=== PATIENT | male | born 1945 | race Caucasian/White ===

== ENCOUNTER 2017-04-23 10:47 | Inpatient (IN) | payer MEDICARE, OTHER ==
[2017-04-23] MEDS ORDERED: Sodium Chloride 0.9% 1,000 ML IV ONE ×2 (11:06)
[2017-04-23] MEDS ORDERED: Pantoprazole 80 MG in Sodium Chloride 0.9% 100 ML IV STA (11:06)
--- NOTE | 2017-04-23 11:09 | C.PDOC ---
History Of Present Illness 71 year old male presents to the ED via EMS for evaluation of rectal bleeding which began today. History obtained via patient's neighbor due to patient's clinical condition and poor historian. As per neighbor, patient had an episode of rectal bleeding this morning for an unknown duration. Neighbor states patient was found indoors with other family member and bright red blood was found on toilet. Patient is uncooperative during examination and states this is his first time experiencing rectal bleeding. Neighbor denies history of alcohol abuse; unknown if patient is experiencing abdominal pain or hematemesis. Neighbor states patient is currently at baseline mental status, stating " he doesn't talk very much." Time Seen by Provider: 04/23/17 10:55 Chief Complaint (Nursing): GI Problem History Per: EMS, Other (neighbor ) History/Exam Limitations: clinical condition, other (poor historian ) Onset/Duration Of Symptoms: Hrs Current Symptoms Are (Timing): Still Present Number Of Bleeding Episodes: Unknown Associated Symptoms: Rectal Bleeding Past Medical History Reviewed: Historical Data, Nursing Documentation, Vital Signs Vital Signs: Last Vital Signs Temp 97.6 F 04/23/17 14:37 Pulse 100 H 04/23/17 15:27 Resp 12 04/23/17 15:27 BP 82/51 L 04/23/17 15:27 Pulse Ox 100 04/23/17 15:27 - Medical History PMH: No Chronic Diseases Surgical History: No Surg Hx Family History: States: Unknown Family Hx - Social History Hx Tobacco Use: Yes Hx Alcohol Use: Yes Hx Substance Use: No - Immunization History Hx Tetanus Toxoid Vaccination: No Hx Influenza Vaccination: No Hx Pneumococcal Vaccination: No Review Of Systems Review Of Systems: ROS cannot be obtained secondary to pt's inabilty to answer questions. Physical Exam - Physical Exam Appears: Non-toxic, No Acute Distress, Unkempt, Other (cachectic) Skin: Warm, Dry, Pale Head: Atraumatic, Normacephalic Eye(s): bilateral: Normal Inspection Oral Mucosa: Moist Neck: Supple Chest: Symmetrical, No Deformity, No Tenderness Cardiovascular: Rhythm Regular, No Murmur Respiratory: Normal Breath Sounds, No Rales, No Rhonchi, No Wheezing Gastrointestinal/Abdominal: Soft, No Tenderness, No Guarding, No Rebound Rectal: Other (gross bright red blood noted. no active rectal bleed ) Extremity: Normal ROM, Capillary Refill (less than 2 seconds) Neurological/Psych: Oriented x3, Normal Speech, Normal Cognition, Other (no focal deficits ) Other Neurological Findings: Other (generalized tremors ) ED Course And Treatment - Laboratory Results Result Diagrams: 04/23/17 11:30 04/23/17 11:30 ECG: Interpreted By Me, Viewed By Me ECG Rhythm: Sinus Tachycardia Rate From EC O2 Sat by Pulse Oximetry: 100 (on RA) Pulse Ox Interpretation: Normal Progress Note: Bloodwork, urinalysis, CT A/P, CXR, EKG ordered and reviewed. Ativan IVP, Protonix IVP, Pepcid IVP, Zofran IVP, and IV Fluids administered. Progress - Re-Evaluation Re-evaluation Note: 04/23/17 12:18 NOTIFIED BY RN PT NOW W HYPOTENSION. IVF IN PROGRESS. PT W INCR ALERTNESS AND MORE INTERACTIVE COMPARED TO INITIAL. NO PALP RADIAL PULSE. NO RECUR GI BLEED. NARD. NEURO INTACT IMPROVED FROM INITIAL, MORE INTERACTIVE AND TALKATIVE. UNABLE TO GIVE FURTHER HX D/W BROTHER ADEL SIDAROUS [phone] PT IS FULL CODE. VERBAL CONSENT ON PHONE FOR BLOOD TRANSFUSION. DENIES PT W ACTIVE ETOH USE. 3 DAYS NEW ONSET LGIB. UNK IF UGIB. "HE'S JUST BEEN SLEEPING ALOT." 04/23/17 12:52 CODE SEPSIS ACTIVATED 04/23/17 13:08 EXAM UNCH FROM INITIAL. D/W DR CAGLE C/F ICU AWARE OF ER FINDINGS WILL EVAL 04/23/17 13:10 BP IMPROVED S/P IVF 2L. PRBC IN PROGRESS. PT UNSTABLE FOR CT, WILL TRANSFUSE FIRST BEFORE SENDING TO CT. D/W DR FLEMING MED [employer] AWARE OF ER FINDINGS. CONSULT GI AND SURG [employer]. 04/23/17 13:22 D/W DR LEHMAN AWARE OF ER FINDINGS, WILL CONSULT 04/23/17 16:03 PT AWAKE APPEARS COMFORTABLE NO RECUR LGIB. SBP 98 D/W DR CAGLE PT CLEARED FOR TELE - Data Reviewed Data Reviewed: Lab, Diagnostic imaging, EKG - Critical Care Citical Care: Excluding Proc Time Critical Care Time: 120 minutes Medical Decision Making Medical Decision Making: Prior records reviewed. Patient was previously evaluated for alcohol intoxication. Plan is to treat for GI bleed, hypothermia, alcohol intoxication. Rectal temperature of 95 recorded. Disposition Counseled Patient/Family Regarding: Studies Performed, Diagnosis, Need For Followup - Disposition Disposition: HOSPITALIZED Disposition Time: 16:04 Condition: STABLE Forms: [facility] (Mexican) - POA Present On Arrival: None - Clinical Impression Clinical Impression: Gastrointestinal hemorrhage, Hypotension, Severe anemia - Scribe Statement The provider has reviewed the documentation as recorded by the Scribe (Serena Solitario) Provider Attestation: All medical record entries made by the Scribe were at my direction and personally dictated by me. I have reviewed the chart and agree that the record accurately reflects my personal performance of the history, physical exam, medical decision making, and the department course for this patient. I have also personally directed, reviewed, and agree with the discharge instructions and disposition. Decision To Admit - Pt Status Changed To: Hospital Disposition Of: Inpatient - Admit Certification Admit to Inpatient:: After my assessment, the patient will require hospitalization for at least two midnights. This is because of the severity of symptoms shown, intensity of services needed, and/or the medical risk in this patient being treated as an outpatient. - InPatient: Physician Admission Certification: I certify that this patient requires 2 or more midnights of care for the following reason:: SEE NOTE - . Bed Request Type: Telemetry Admitting Physician: Ana Song Patient Diagnosis: Gastrointestinal hemorrhage, Hypotension, Severe anemia
[2017-04-23 11:36] LABS: BASO # 0.2 K/uL (0.0-0.2); BASO % 0.8 % (0.0-2.0); EOS % 0.1 % (0.0-4.0); HEMOGLOBIN 6.7 g/dL (12.0-18.0); LYMPH # 2.3 K/uL (1.0-4.3); LYMPH % 11.3 % (20.0-40.0); MEAN CELL VOLUME 90.9 fL (80.0-94.0); MEAN CORPUSCULAR HEMOGLOBIN 29.8 pg (27.0-31.0); MEAN CORPUSCULAR HGB CONC 32.8 g/dL (33.0-37.0); MEAN PLATELET VOLUME 7.6 fL (7.2-11.7); MONO # 0.7 K/uL (0.0-0.8); MONO % 3.6 % (0.0-10.0); NEUT # 17.2 K/uL (1.8-7.0); NEUT % 84.2 % (50.0-75.0); RBC 2.23 Mil/uL (4.40-5.90); RED CELL DISTRIBUTION WIDTH 13.3 % (11.5-14.5); WHITE BLOOD COUNT 20.5 K/uL (4.8-10.8)
[2017-04-23 11:45] LABS: INR 1.2; PROTHROMBIN TIME 13.8 SECONDS (9.7-12.2)
[2017-04-23 12:02] LABS: ALB/GLOB RATIO 1.1 (1.0-2.1); ALBUMIN 3.3 g/dL (3.5-5.0); ALT/SGPT 25 U/L (21-72); AST/SGOT 38 U/L (17-59); BLOOD UREA NITROGEN 52 mg/dL (9-20); CALCIUM 7.7 mg/dl (8.6-10.4); GFR AFRICAN-AMERICAN > 60; GFR NON-AFRICAN AMERICAN > 60; LIPASE 104 U/L (23-300)
--- NOTE | 2017-04-23 12:04 | RAD ---
Chest x-ray single frontal view History GI bleeding. Comparison: None available. Findings: No focal infiltrate or effusion. Biapical pleural thickening with upper lobe scattered nodularity/granulomatous changes. Tortuous ectatic aorta. Degenerative changes in the spine and shoulders. Impression: No focal infiltrate or effusion. Biapical pleural thickening with upper lobe scattered nodularity/granulomatous changes.
[2017-04-23 12:43] LABS: VENOUS BLOOD GAS BASE EXCESS -10.1 mmol/L (0.0-2.0); VENOUS BLOOD GAS PCO2 42 mmHg (40-60); VENOUS BLOOD GAS PO2 20 mm/Hg (30-55); VENOUS BLOOD PH 7.22 (7.32-7.43)
[2017-04-23] MEDS ORDERED: Vancomycin 1 gm/NS 200 ml 1 GM/200 ML BAG IVPB STA (12:52)
[2017-04-23] MEDS ORDERED: Piperacill/Tazo 3.375gm in Dex 3.375 GM/50 ML BAG IVPB STA (12:52)
[2017-04-23] MEDS ORDERED: Iodixanol 320 mg/ml 150 ml Bottle IV ONE (13:11)
--- NOTE | 2017-04-23 14:24 | CP.PCM.CON ---
<TreyOsmanVera - Last Filed: 04/23/17 16:41> History of Present Illness - History of Present Illness History of Present Illness: HPI: Patient is a 71 y/o male with PMH of schizophrenia who presents to the ED via EMS for rectal bleeding that started 2-3 days ago. I spoke with the brother who lives with the patient on the phone and most of the history was obtained from him because the patient is a poor historian and gives innapropriate responses to some of my questions. However, the brother seems to know very little about the patients medical history. He says he decided to call an ambulance today because the bleeding was not improving. He first called a neighbor who came over and is present in the ED with the patient. She says when she got to the patient's house there was a lot of bright red blood in the toilet but did not notice any dripping down from him when he got off the toilet. They are both unsure whether the patient has recently had diarrhea, constipation, nausea, vomiting, or prior episodes of rectal bleeding but they did say he was not complaining of anything specific anytime in the recent past. They are also unsure of colonoscopy history. PMH: schizophrenia Meds: see MR Allergies: NKDA PSH: unknown surgery of leg per brother SH: Smokes 1 PPD, denies alcohol and elicit drug use Review of Systems - Review of Systems Systems not reviewed;Unavailable: Other (disorganized 2/2 schizophrenia ) Past Patient History - Past Social History Smoking Status: Former Smoker - PSYCHIATRIC Hx Substance Use: No - ANESTHESIA Hx Anesthesia: No Meds Allergies/Adverse Reactions: Allergies Allergy/AdvReac Type Severity Reaction Status Date / Time No Known Allergies Allergy Unverified 04/23/17 11:07 - Medications Medications: Current Medications Sodium Chloride (Sodium Chloride 0.9%) 1,000 mls @ 100 mls/hr IV .Q10H ONE Stop: 04/23/17 21:05 Last Admin: 04/23/17 11:20 Dose: 100 mls/hr Vancomycin/Sodium Chloride (Vancomycin 1 Gm/Ns 200 Ml) 1 gm in 200 mls @ 133 mls/hr IVPB STAT STA Stop: 04/23/17 14:22 Physical Exam - Constitutional Appears: Non-toxic, No Acute Distress - Head Exam Head Exam: ATRAUMATIC, NORMAL INSPECTION, NORMOCEPHALIC - Eye Exam Eye Exam: EOMI, Normal appearance Pupil Exam: PERRL - ENT Exam ENT Exam: Mucous Membranes Dry - Respiratory Exam Respiratory Exam: Clear to Auscultation Bilateral, NORMAL BREATHING PATTERN. absent: Rales, Rhonchi, Wheezes - Cardiovascular Exam Cardiovascular Exam: Tachycardia, REGULAR RHYTHM, +S1, +S2 - GI/Abdominal Exam GI & Abdominal Exam: Distended, Hyperactive Bowel Sounds, Soft. absent: Guarding, Hernia, Mass, Rigid, Tenderness - Rectal Exam Rectal Exam: absent: Hemorrhoids, Fecal Impaction Additional comments: Dried blood around the rectum Senitnal pile noted - Extremities Exam Extremities exam: Positive for: normal capillary refill, normal inspection, pedal pulses present. Negative for: calf tenderness, pedal edema - Neurological Exam Neurological exam: Alert - Psychiatric Exam Additional comments: disorganized and preoccupied - Skin Skin Exam: Dry, Intact, Normal Color, Warm Results - Vital Signs Recent Vital Signs: Last Vital Signs Temp 97.8 F 04/23/17 13:44 Pulse 102 H 04/23/17 13:44 Resp 18 04/23/17 13:44 BP 99/42 L 04/23/17 13:44 Pulse Ox 100 04/23/17 13:44 - Labs Result Diagrams: 04/23/17 11:30 04/23/17 11:30 Labs: Laboratory Results - last 24 hr 04/23/17 04/23/17 04/23/17 11:30 11:30 11:30 WBC 20.5 H RBC 2.23 L Hgb 6.7 L Hct 20.3 L MCV 90.9 MCH 29.8 MCHC 32.8 L RDW 13.3 Plt Count 342 MPV 7.6 Neut % (Auto) 84.2 H Lymph % (Auto) 11.3 L [place] % (Auto) 3.6 Eos % (Auto) 0.1 Baso % (Auto) 0.8 Neut # 17.2 H Lymph # 2.3 [place] # 0.7 Eos # 0.0 Baso # 0.2 PT 13.8 H INR 1.2 APTT 23 pO2 VBG pH VBG pCO2 VBG HCO3 VBG Total CO2 VBG O2 Sat (Calc) VBG Base Excess VBG Potassium Glucose Lactate Sodium 131 L Potassium 4.9 Chloride 104 Carbon Dioxide 16 L Anion Gap 17 BUN 52 H Creatinine 0.8 Est GFR ( Amer) > 60 Est GFR (Non-Af Amer) > 60 Random Glucose 170 H Calcium 7.7 L Total Bilirubin 0.4 AST 38 ALT 25 Alkaline Phosphatase 45 Total Protein 6.3 Albumin 3.3 L Globulin 3.0 Albumin/Globulin Ratio 1.1 Lipase 104 Venous Blood Potassium Stool Occult Blood Alcohol, Quantitative Blood Type Blood Type Confirm Antibody Screen 04/23/17 04/23/17 04/23/17 11:30 11:30 11:33 WBC RBC Hgb Hct MCV MCH MCHC RDW Plt Count MPV Neut % (Auto) Lymph % (Auto) [place] % (Auto) Eos % (Auto) Baso % (Auto) Neut # Lymph # [place] # Eos # Baso # PT INR APTT pO2 VBG pH VBG pCO2 VBG HCO3 VBG Total CO2 VBG O2 Sat (Calc) VBG Base Excess VBG Potassium Glucose Lactate Sodium Potassium Chloride Carbon Dioxide Anion Gap BUN Creatinine Est GFR ( Amer) Est GFR (Non-Af Amer) Random Glucose Calcium Total Bilirubin AST ALT Alkaline Phosphatase Total Protein Albumin Globulin Albumin/Globulin Ratio Lipase Venous Blood Potassium Stool Occult Blood Positive H Alcohol, Quantitative < 10 Blood Type A POSITIVE Blood Type Confirm A POSITIVE Antibody Screen Negative 04/23/17 12:39 WBC RBC Hgb Hct MCV MCH MCHC RDW Plt Count MPV Neut % (Auto) Lymph % (Auto) [place] % (Auto) Eos % (Auto) Baso % (Auto) Neut # Lymph # [place] # Eos # Baso # PT INR APTT pO2 20 L VBG pH 7.22 L VBG pCO2 42 VBG HCO3 15.0 VBG Total CO2 18.5 L VBG O2 Sat (Calc) 36.4 L VBG Base Excess -10.1 L VBG Potassium 3.7 Glucose 111 H Lactate 3.7 H Sodium 142.0 Potassium Chloride 116.0 H Carbon Dioxide Anion Gap BUN Creatinine Est GFR ( Amer) Est GFR (Non-Af Amer) Random Glucose Calcium Total Bilirubin AST ALT Alkaline Phosphatase Total Protein Albumin Globulin Albumin/Globulin Ratio Lipase Venous Blood Potassium 3.7 Stool Occult Blood Alcohol, Quantitative Blood Type Blood Type Confirm Antibody Screen Assessment & Plan - Assessment and Plan (Free Text) Assessment: 71M with acute GI bleed Neuro * neurologically in tact * alert and oriented Psych - history of schizophrenia * continue home meds Cardio - tachycardia and hypotension possibly 2/2 hypovolemia GI - acute GI bleed * AST/ALT: 38/25 * TBili: 0.4 * Unsure if ever had a colonoscopy * Dr. Mercado consulted - recs appreciated Heme/Onc - anemia likely 2/2 acute GI bleed * H&H: 6.7/20.3 * Plts: 342 * PT/PTT/INR: 13.8/23/1.2 * Transfused 2U pRBCs * f/u H&H Patient seen and evaluated with Dr. Dooley. ICU admission is unnecessary at this time. Please re-consult as needed. <Christophe Urias - Last Filed: 04/23/17 23:14> Results - Vital Signs Recent Vital Signs: Last Vital Signs Temp 97.7 F 04/23/17 21:39 Pulse 79 04/23/17 21:39 Resp 18 04/23/17 21:39 BP 91/59 L 04/23/17 21:39 Pulse Ox 99 04/23/17 21:39 - Labs Result Diagrams: 04/23/17 18:48 04/23/17 11:30 Labs: Laboratory Results - last 24 hr 04/23/17 04/23/17 04/23/17 11:30 11:30 11:30 WBC 20.5 H RBC 2.23 L Hgb 6.7 L Hct 20.3 L MCV 90.9 MCH 29.8 MCHC 32.8 L RDW 13.3 Plt Count 342 MPV 7.6 Neut % (Auto) 84.2 H Lymph % (Auto) 11.3 L [place] % (Auto) 3.6 Eos % (Auto) 0.1 Baso % (Auto) 0.8 Neut # 17.2 H Lymph # 2.3 [place] # 0.7 Eos # 0.0 Baso # 0.2 Retic Count PT 13.8 H INR 1.2 APTT 23 pO2 VBG pH VBG pCO2 VBG HCO3 VBG Total CO2 VBG O2 Sat (Calc) VBG Base Excess VBG Potassium Glucose Lactate Sodium 131 L Potassium 4.9 Chloride 104 Carbon Dioxide 16 L Anion Gap 17 BUN 52 H Creatinine 0.8 Est GFR ( Amer) > 60 Est GFR (Non-Af Amer) > 60 Random Glucose 170 H Hemoglobin A1c Lactic Acid Calcium 7.7 L % Saturation Ferritin Total Bilirubin 0.4 AST 38 ALT 25 Alkaline Phosphatase 45 Total Protein 6.3 Albumin 3.3 L Globulin 3.0 Albumin/Globulin Ratio 1.1 Lipase 104 Folate Procalcitonin Venous Blood Potassium Urine Color Urine Clarity Urine pH Ur Specific Levan Urine Protein Urine Glucose (UA) Urine Ketones Urine Blood Urine Nitrate Urine Bilirubin Urine Urobilinogen Ur Leukocyte Esterase Urine WBC (Auto) Urine RBC (Auto) Ur Squamous Epith Cells Urine Bacteria Stool Occult Blood Urine Opiates Screen Urine Methadone Screen Ur Barbiturates Screen Ur Phencyclidine Scrn Ur Amphetamines Screen U Benzodiazepines Scrn U Oth Cocaine Metabols U Cannabinoids Screen Alcohol, Quantitative Blood Type Blood Type Confirm Antibody Screen 04/23/17 04/23/17 04/23/17 11:30 11:30 11:33 WBC RBC Hgb Hct MCV MCH MCHC RDW Plt Count MPV Neut % (Auto) Lymph % (Auto) [place] % (Auto) Eos % (Auto) Baso % (Auto) Neut # Lymph # [place] # Eos # Baso # Retic Count PT INR APTT pO2 VBG pH VBG pCO2 VBG HCO3 VBG Total CO2 VBG O2 Sat (Calc) VBG Base Excess VBG Potassium Glucose Lactate Sodium Potassium Chloride Carbon Dioxide Anion Gap BUN Creatinine Est GFR ( Amer) Est GFR (Non-Af Amer) Random Glucose Hemoglobin A1c Lactic Acid Calcium % Saturation Ferritin Total Bilirubin AST ALT Alkaline Phosphatase Total Protein Albumin Globulin Albumin/Globulin Ratio Lipase Folate Procalcitonin Venous Blood Potassium Urine Color Urine Clarity Urine pH Ur Specific [place]an Urine Protein Urine Glucose (UA) Urine Ketones Urine Blood Urine Nitrate Urine Bilirubin Urine Urobilinogen Ur Leukocyte Esterase Urine WBC (Auto) Urine RBC (Auto) Ur Squamous Epith Cells Urine Bacteria Stool Occult Blood Positive H Urine Opiates Screen Urine Methadone Screen Ur Barbiturates Screen Ur Phencyclidine Scrn Ur Amphetamines Screen U Benzodiazepines Scrn U Oth Cocaine Metabols U Cannabinoids Screen Alcohol, Quantitative < 10 Blood Type A POSITIVE Blood Type Confirm A POSITIVE Antibody Screen Negative 04/23/17 04/23/17 04/23/17 12:39 16:49 16:49 WBC RBC Hgb Hct MCV MCH MCHC RDW Plt Count MPV Neut % (Auto) Lymph % (Auto) [place] % (Auto) Eos % (Auto) Baso % (Auto) Neut # Lymph # [place] # Eos # Baso # Retic Count PT INR APTT pO2 20 L VBG pH 7.22 L VBG pCO2 42 VBG HCO3 15.0 VBG Total CO2 18.5 L VBG O2 Sat (Calc) 36.4 L VBG Base Excess -10.1 L VBG Potassium 3.7 Glucose 111 H Lactate 3.7 H Sodium 142.0 Potassium Chloride 116.0 H Carbon Dioxide Anion Gap BUN Creatinine Est GFR ( Amer) Est GFR (Non-Af Amer) Random Glucose Hemoglobin A1c Lactic Acid Calcium % Saturation Ferritin Total Bilirubin AST ALT Alkaline Phosphatase Total Protein Albumin Globulin Albumin/Globulin Ratio Lipase Folate Procalcitonin Venous Blood Potassium 3.7 Urine Color Straw Urine Clarity Clear Urine pH 5.0 Ur Specific [place]an 1.015 Urine Protein Negative Urine Glucose (UA) Normal Urine Ketones Negative Urine Blood 1+ H Urine Nitrate Negative Urine Bilirubin Negative Urine Urobilinogen Normal Ur Leukocyte Esterase Neg Urine WBC (Auto) 1 Urine RBC (Auto) 6 H Ur Squamous Epith Cells < 1 Urine Bacteria Rare Stool Occult Blood Urine Opiates Screen Negative Urine Methadone Screen Negative Ur Barbiturates Screen Negative Ur Phencyclidine Scrn Negative Ur Amphetamines Screen Negative U Benzodiazepines Scrn Negative U Oth Cocaine Metabols Negative U Cannabinoids Screen Negative Alcohol, Quantitative Blood Type Blood Type Confirm Antibody Screen 04/23/17 04/23/17 04/23/17 16:50 18:48 18:48 WBC 11.1 H RBC 2.15 L Hgb 6.3 L* Hct 19.1 L MCV 88.8 D MCH 29.4 MCHC 33.1 RDW 13.6 Plt Count 214 D MPV 7.2 Neut % (Auto) Lymph % (Auto) 27.3 [place] % (Auto) 5.8 Eos % (Auto) 0.3 Baso % (Auto) 0.6 Neut # Lymph # 3.0 [place] # 0.6 Eos # 0.0 Baso # 0.1 Retic Count 2.2 H PT INR APTT pO2 58 H VBG pH 7.38 VBG pCO2 33 L VBG HCO3 21.0 VBG Total CO2 20.5 L VBG O2 Sat (Calc) 96.9 H VBG Base Excess -4.7 L VBG Potassium 4.0 Glucose 108 Lactate 1.7 Sodium 140.0 Potassium Chloride 115.0 H Carbon Dioxide Anion Gap BUN Creatinine Est GFR ( Amer) Est GFR (Non-Af Amer) Random Glucose Hemoglobin A1c Lactic Acid Calcium % Saturation Ferritin 107.0 Total Bilirubin AST ALT Alkaline Phosphatase Total Protein Albumin Globulin Albumin/Globulin Ratio Lipase Folate 15.0 Procalcitonin Venous Blood Potassium 4.0 Urine Color Urine Clarity Urine pH Ur Specific [place]an Urine Protein Urine Glucose (UA) Urine Ketones Urine Blood Urine Nitrate Urine Bilirubin Urine Urobilinogen Ur Leukocyte Esterase Urine WBC (Auto) Urine RBC (Auto) Ur Squamous Epith Cells Urine Bacteria Stool Occult Blood Urine Opiates Screen Urine Methadone Screen Ur Barbiturates Screen Ur Phencyclidine Scrn Ur Amphetamines Screen U Benzodiazepines Scrn U Oth Cocaine Metabols U Cannabinoids Screen Alcohol, Quantitative Blood Type Blood Type Confirm Antibody Screen 04/23/17 04/23/17 04/23/17 18:48 18:48 18:48 WBC RBC Hgb Hct MCV MCH MCHC RDW Plt Count MPV Neut % (Auto) Lymph % (Auto) [place] % (Auto) Eos % (Auto) Baso % (Auto) Neut # Lymph # [place] # Eos # Baso # Retic Count PT INR APTT pO2 VBG pH VBG pCO2 VBG HCO3 VBG Total CO2 VBG O2 Sat (Calc) VBG Base Excess VBG Potassium Glucose Lactate Sodium Potassium Chloride Carbon Dioxide Anion Gap BUN Creatinine Est GFR ( Amer) Est GFR (Non-Af Amer) Random Glucose Hemoglobin A1c 5.7 Lactic Acid Calcium % Saturation 54 Ferritin Total Bilirubin AST ALT Alkaline Phosphatase Total Protein Albumin Globulin Albumin/Globulin Ratio Lipase Folate Procalcitonin 0.06 L Venous Blood Potassium Urine Color Urine Clarity Urine pH Ur Specific [place] Urine Protein Urine Glucose (UA) Urine Ketones Urine Blood Urine Nitrate Urine Bilirubin Urine Urobilinogen Ur Leukocyte Esterase Urine WBC (Auto) Urine RBC (Auto) Ur Squamous Epith Cells Urine Bacteria Stool Occult Blood Urine Opiates Screen Urine Methadone Screen Ur Barbiturates Screen Ur Phencyclidine Scrn Ur Amphetamines Screen U Benzodiazepines Scrn U Oth Cocaine Metabols U Cannabinoids Screen Alcohol, Quantitative Blood Type Blood Type Confirm Antibody Screen 04/23/17 18:48 WBC RBC Hgb Hct MCV MCH MCHC RDW Plt Count MPV Neut % (Auto) Lymph % (Auto) [place] % (Auto) Eos % (Auto) Baso % (Auto) Neut # Lymph # [place] # Eos # Baso # Retic Count PT INR APTT pO2 VBG pH VBG pCO2 VBG HCO3 VBG Total CO2 VBG O2 Sat (Calc) VBG Base Excess VBG Potassium Glucose Lactate Sodium Potassium Chloride Carbon Dioxide Anion Gap BUN Creatinine Est GFR ( Amer) Est GFR (Non-Af Amer) Random Glucose Hemoglobin A1c Lactic Acid 1.3 Calcium % Saturation Ferritin Total Bilirubin AST ALT Alkaline Phosphatase Total Protein Albumin Globulin Albumin/Globulin Ratio Lipase Folate Procalcitonin Venous Blood Potassium Urine Color Urine Clarity Urine pH Ur Specific [place] Urine Protein Urine Glucose (UA) Urine Ketones Urine Blood Urine Nitrate Urine Bilirubin Urine Urobilinogen Ur Leukocyte Esterase Urine WBC (Auto) Urine RBC (Auto) Ur Squamous Epith Cells Urine Bacteria Stool Occult Blood Urine Opiates Screen Urine Methadone Screen Ur Barbiturates Screen Ur Phencyclidine Scrn Ur Amphetamines Screen U Benzodiazepines Scrn U Oth Cocaine Metabols U Cannabinoids Screen Alcohol, Quantitative Blood Type Blood Type Confirm Antibody Screen Attending/Attestation - Attestation I have personally seen and examined this patient.: Yes I have fully participated in the care of the patient.: Yes I have reviewed all pertinent clinical information: Yes Notes (Text): 04/23/17 23:[address] Dooley earlier today. I was reconsulted to see the patient. He is alert and oriented, answers only some question appropriately, this is his baseline. Patient is cachectic with severe protein calorie malnutrition with horrible dentition. He does not properly care for himself, possible from poorly controlled schizophrenia. His baseline blood pressure, is SBP ~100's. He is not far off from that. He does have an active slow upper GI bleed with melanotic stool, but is not hemodynamically compromised from this. He will need a non-urgent EGD, GI consulted. continue protonix gtt, fluids and 3 units PRBC transfusion. Patient is currently stable for continue management on Telemetry floors. If his clinical status changes, please reconsult ICU.
[2017-04-23] MEDS ORDERED: Thiamine 100 mg/ml Inj IV ONE (15:50)
--- NOTE | 2017-04-23 15:54 | CP.PCM.PN ---
Subjective - Date & Time of Evaluation Date of Evaluation: 04/23/17 Time of Evaluation: 15:25 - Subjective Subjective: H&P [facility] #[id number] Objective - Vital Signs/Intake and Output Vital Signs (last 24 hours): Temp Pulse Resp BP Pulse Ox 97.6 F 100 H 12 82/51 L 100 04/23/17 14:37 04/23/17 15:27 04/23/17 15:27 04/23/17 15:27 04/23/17 15:27 - Medications Medications: Current Medications Sodium Chloride (Sodium Chloride 0.9%) 1,000 mls @ 100 mls/hr IV .Q10H ONE Stop: 04/23/17 21:05 Last Admin: 04/23/17 11:20 Dose: 100 mls/hr - Labs Labs: 04/23/17 11:30 04/23/17 11:30 PT 13.8 SECONDS (9.7-12.2) H 04/23/17 11:30 INR 1.2 04/23/17 11:30 APTT 23 SECONDS (21-34) 04/23/17 11:30
[2017-04-23 16:54] LABS: SQUAMOUS EPITHIAL < 1 /hpf (0-5); URINE BACTERIA RARE (<OCC); URINE BILIRUBIN NEGATIVE (NEGATIVE); URINE BLOOD 1+ (NEGATIVE); URINE CLARITY Clear (Clear); URINE COLOR Straw (YELLOW); URINE GLUCOSE (UA) NORMAL (Normal); URINE LEUKOCYTE ESTERASE NEG Leu/uL (Negative); URINE NITRATE NEGATIVE (NEGATIVE); URINE PROTEIN NEGATIVE (NEGATIVE); URINE UROBILINOGEN NORMAL mg/dL (0.2-1.0)
[2017-04-23 17:04] LABS: VENOUS BLOOD GAS BASE EXCESS -4.7 mmol/L (0.0-2.0); VENOUS BLOOD GAS PCO2 33 mmHg (40-60); VENOUS BLOOD GAS PO2 58 mm/Hg (30-55); VENOUS BLOOD PH 7.38 (7.32-7.43)
[2017-04-23 17:21] LABS: BARBITURATES, UR NEGATIVE (NEGATIVE); BENZODIAZEPINES, UR NEGATIVE (NEGATIVE); OPIATES, UR NEGATIVE (NEGATIVE); PHENCYCLIDINE, UR NEGATIVE (NEGATIVE)
--- NOTE | 2017-04-23 18:05 | CP.PCM.CON ---
History of Present Illness - History of Present Illness History of Present Illness: This is a 71 year old man admitted with rectal bleeding. Patient is a poor historian, and history is obtained from the chart. Patient states that the bleeding started two or three days prior to admission. A neighbor noted bright red blood in the toilet. It is unclear if there was any recent change in the bowel movements, such as diarrhea or constipation. It is also not clear if he had any nausea or vomiting. At present, he denies having any abdominal pain, nausea or vomiting. Review of Systems - Review of Systems Systems not reviewed;Unavailable: Psychotic, Other Review of Systems: Schizophrenia Past Patient History - Past Social History Smoking Status: Former Smoker - PSYCHIATRIC Hx Substance Use: No - ANESTHESIA Hx Anesthesia: No Meds Allergies/Adverse Reactions: Allergies Allergy/AdvReac Type Severity Reaction Status Date / Time No Known Allergies Allergy Unverified 04/23/17 11:07 - Medications Medications: Current Medications Sodium Chloride (Sodium Chloride 0.9%) 1,000 mls @ 100 mls/hr IV .Q10H ONE Stop: 04/23/17 21:05 Last Admin: 04/23/17 11:20 Dose: 100 mls/hr Physical Exam - Constitutional Appears: Chronically Ill - Head Exam Head Exam: ATRAUMATIC, NORMOCEPHALIC - Eye Exam Eye Exam: EOMI, PERRL - Neck Exam Neck exam: Negative for: Lymphadenopathy, Thyromegaly - Respiratory Exam Respiratory Exam: NORMAL BREATHING PATTERN. absent: Rales, Rhonchi, Wheezes - Cardiovascular Exam Cardiovascular Exam: REGULAR RHYTHM, +S1, +S2. absent: Gallop, Rubs, Systolic Murmur - GI/Abdominal Exam GI & Abdominal Exam: Normal Bowel Sounds, Soft. absent: Mass, Organomegaly, Tenderness - Rectal Exam Rectal Exam: Deferred - Extremities Exam Extremities exam: Negative for: calf tenderness, pedal edema Results - Vital Signs Recent Vital Signs: Last Vital Signs Temp 98.5 F 04/23/17 16:25 Pulse 96 H 04/23/17 16:25 Resp 12 04/23/17 16:25 BP 84/52 L 04/23/17 16:25 Pulse Ox 99 04/23/17 16:25 - Labs Result Diagrams: 04/24/17 06:33 04/23/17 18:00 Labs: Laboratory Results - last 24 hr 04/23/17 04/23/17 04/23/17 11:30 11:30 11:30 WBC 20.5 H RBC 2.23 L Hgb 6.7 L Hct 20.3 L MCV 90.9 MCH 29.8 MCHC 32.8 L RDW 13.3 Plt Count 342 MPV 7.6 Neut % (Auto) 84.2 H Lymph % (Auto) 11.3 L [place] % (Auto) 3.6 Eos % (Auto) 0.1 Baso % (Auto) 0.8 Neut # 17.2 H Lymph # 2.3 [place] # 0.7 Eos # 0.0 Baso # 0.2 PT 13.8 H INR 1.2 APTT 23 pO2 VBG pH VBG pCO2 VBG HCO3 VBG Total CO2 VBG O2 Sat (Calc) VBG Base Excess VBG Potassium Glucose Lactate Sodium 131 L Potassium 4.9 Chloride 104 Carbon Dioxide 16 L Anion Gap 17 BUN 52 H Creatinine 0.8 Est GFR ( Amer) > 60 Est GFR (Non-Af Amer) > 60 Random Glucose 170 H Calcium 7.7 L Total Bilirubin 0.4 AST 38 ALT 25 Alkaline Phosphatase 45 Total Protein 6.3 Albumin 3.3 L Globulin 3.0 Albumin/Globulin Ratio 1.1 Lipase 104 Venous Blood Potassium Urine Color Urine Clarity Urine pH Ur Specific [place] Urine Protein Urine Glucose (UA) Urine Ketones Urine Blood Urine Nitrate Urine Bilirubin Urine Urobilinogen Ur Leukocyte Esterase Urine WBC (Auto) Urine RBC (Auto) Ur Squamous Epith Cells Urine Bacteria Stool Occult Blood Urine Opiates Screen Urine Methadone Screen Ur Barbiturates Screen Ur Phencyclidine Scrn Ur Amphetamines Screen U Benzodiazepines Scrn U Oth Cocaine Metabols U Cannabinoids Screen Alcohol, Quantitative Blood Type Blood Type Confirm Antibody Screen 04/23/17 04/23/17 04/23/17 11:30 11:30 11:33 WBC RBC Hgb Hct MCV MCH MCHC RDW Plt Count MPV Neut % (Auto) Lymph % (Auto) [place] % (Auto) Eos % (Auto) Baso % (Auto) Neut # Lymph # [place] # Eos # Baso # PT INR APTT pO2 VBG pH VBG pCO2 VBG HCO3 VBG Total CO2 VBG O2 Sat (Calc) VBG Base Excess VBG Potassium Glucose Lactate Sodium Potassium Chloride Carbon Dioxide Anion Gap BUN Creatinine Est GFR ( Amer) Est GFR (Non-Af Amer) Random Glucose Calcium Total Bilirubin AST ALT Alkaline Phosphatase Total Protein Albumin Globulin Albumin/Globulin Ratio Lipase Venous Blood Potassium Urine Color Urine Clarity Urine pH Ur Specific [place] Urine Protein Urine Glucose (UA) Urine Ketones Urine Blood Urine Nitrate Urine Bilirubin Urine Urobilinogen Ur Leukocyte Esterase Urine WBC (Auto) Urine RBC (Auto) Ur Squamous Epith Cells Urine Bacteria Stool Occult Blood Positive H Urine Opiates Screen Urine Methadone Screen Ur Barbiturates Screen Ur Phencyclidine Scrn Ur Amphetamines Screen U Benzodiazepines Scrn U Oth Cocaine Metabols U Cannabinoids Screen Alcohol, Quantitative < 10 Blood Type A POSITIVE Blood Type Confirm A POSITIVE Antibody Screen Negative 04/23/17 04/23/17 04/23/17 12:39 16:49 16:49 WBC RBC Hgb Hct MCV MCH MCHC RDW Plt Count MPV Neut % (Auto) Lymph % (Auto) [place] % (Auto) Eos % (Auto) Baso % (Auto) Neut # Lymph # [place] # Eos # Baso # PT INR APTT pO2 20 L VBG pH 7.22 L VBG pCO2 42 VBG HCO3 15.0 VBG Total CO2 18.5 L VBG O2 Sat (Calc) 36.4 L VBG Base Excess -10.1 L VBG Potassium 3.7 Glucose 111 H Lactate 3.7 H Sodium 142.0 Potassium Chloride 116.0 H Carbon Dioxide Anion Gap BUN Creatinine Est GFR ( Amer) Est GFR (Non-Af Amer) Random Glucose Calcium Total Bilirubin AST ALT Alkaline Phosphatase Total Protein Albumin Globulin Albumin/Globulin Ratio Lipase Venous Blood Potassium 3.7 Urine Color Straw Urine Clarity Clear Urine pH 5.0 Ur Specific [place] 1.015 Urine Protein Negative Urine Glucose (UA) Normal Urine Ketones Negative Urine Blood 1+ H Urine Nitrate Negative Urine Bilirubin Negative Urine Urobilinogen Normal Ur Leukocyte Esterase Neg Urine WBC (Auto) 1 Urine RBC (Auto) 6 H Ur Squamous Epith Cells < 1 Urine Bacteria Rare Stool Occult Blood Urine Opiates Screen Negative Urine Methadone Screen Negative Ur Barbiturates Screen Negative Ur Phencyclidine Scrn Negative Ur Amphetamines Screen Negative U Benzodiazepines Scrn Negative U Oth Cocaine Metabols Negative U Cannabinoids Screen Negative Alcohol, Quantitative Blood Type Blood Type Confirm Antibody Screen 04/23/17 16:50 WBC RBC Hgb Hct MCV MCH MCHC RDW Plt Count MPV Neut % (Auto) Lymph % (Auto) [place] % (Auto) Eos % (Auto) Baso % (Auto) Neut # Lymph # [place] # Eos # Baso # PT INR APTT pO2 58 H VBG pH 7.38 VBG pCO2 33 L VBG HCO3 21.0 VBG Total CO2 20.5 L VBG O2 Sat (Calc) 96.9 H VBG Base Excess -4.7 L VBG Potassium 4.0 Glucose 108 Lactate 1.7 Sodium 140.0 Potassium Chloride 115.0 H Carbon Dioxide Anion Gap BUN Creatinine Est GFR ( Amer) Est GFR (Non-Af Amer) Random Glucose Calcium Total Bilirubin AST ALT Alkaline Phosphatase Total Protein Albumin Globulin Albumin/Globulin Ratio Lipase Venous Blood Potassium 4.0 Urine Color Urine Clarity Urine pH Ur Specific [place] Urine Protein Urine Glucose (UA) Urine Ketones Urine Blood Urine Nitrate Urine Bilirubin Urine Urobilinogen Ur Leukocyte Esterase Urine WBC (Auto) Urine RBC (Auto) Ur Squamous Epith Cells Urine Bacteria Stool Occult Blood Urine Opiates Screen Urine Methadone Screen Ur Barbiturates Screen Ur Phencyclidine Scrn Ur Amphetamines Screen U Benzodiazepines Scrn U Oth Cocaine Metabols U Cannabinoids Screen Alcohol, Quantitative Blood Type Blood Type Confirm Antibody Screen Assessment & Plan (1) Lower GI bleeding Assessment and Plan: Patient has experienced significant blood loss, and, after 3 units PRBC, the systolic BP was still in the 80s, and the HGB was 7.5, up from 6.3. He received two additional units today. Plan is for EGD and colonoscopy tomorrow. Will add octreotide. Status: Acute
[2017-04-23] MEDS ORDERED: Thiamine 100 mg/ml Inj ONE (18:25)
[2017-04-23 18:58] LABS: BASO # 0.1 K/uL (0.0-0.2); BASO % 0.6 % (0.0-2.0); EOS % 0.3 % (0.0-4.0); LYMPH % 27.3 % (20.0-40.0); MEAN CELL VOLUME 88.8 fL (80.0-94.0); MEAN CORPUSCULAR HEMOGLOBIN 29.4 pg (27.0-31.0); MEAN CORPUSCULAR HGB CONC 33.1 g/dL (33.0-37.0); MEAN PLATELET VOLUME 7.2 fL (7.2-11.7); MONO # 0.6 K/uL (0.0-0.8); MONO % 5.8 % (0.0-10.0); RBC 2.15 Mil/uL (4.40-5.90); RED CELL DISTRIBUTION WIDTH 13.6 % (11.5-14.5); WHITE BLOOD COUNT 11.1 K/uL (4.8-10.8)
[2017-04-23 19:01] LABS: HEMOGLOBIN 6.3 g/dL (12.0-18.0)
[2017-04-23] MEDS ORDERED: Iodixanol 320 MG/ML 100 ML BOTTLE IV ONE (20:46)
--- NOTE | 2017-04-23 21:52 | CT ---
EXAM: CT Head Without Intravenous Contrast EXAM DATE/TIME: 04/23/2017 3:50 PM CLINICAL HISTORY: 71 years old, male; Signs and symptoms; Altered mental status/memory loss; Additional info: ? AMS TECHNIQUE: Axial computed tomography images of the head/brain without intravenous contrast. All CT scans at this facility use one or more dose reduction techniques, viz.: automated exposure control; ma/kV adjustment per patient size (including targeted exams where dose is matched to indication; i.e. head); or iterative reconstruction technique. COMPARISON: There are no prior studies for comparison. FINDINGS: Brain: There is prominence of sulci gyri and ventricles. There is no midline shift. There is decreased attenuation in periventricular white matter. There are no focal masses. There are no focal hemorrhages. Morris-white differentiation is visualized. Ventricles: See above. Bones: Cranial vault is intact. Soft tissues: unremarkable Sinuses: There is no acute sinusitis. Ears and mastoids: Middle ears and mastoids are unremarkable. There is a large amount of debris in both external auditory canals. Orbits: There are no acute orbital abnormalities. IMPRESSION: No acute intracranial abnormality
--- NOTE | 2017-04-23 22:20 | CT ---
EXAM: CT Chest With Intravenous Contrast CLINICAL HISTORY: 71 years old, male; Signs and symptoms and condition or disease; Stomach condition; Other: Gi bleeding; Other: Distention; Lung condition and disease; Other: Pain; Wheezing TECHNIQUE: Axial computed tomography images of the chest with intravenous contrast. All CT scans at this facility use one or more dose reduction techniques, viz.: automated exposure control; ma/kV adjustment per patient size (including targeted exams where dose is matched to indication; i.e. head); or iterative reconstruction technique. Coronal and sagittal reformatted images were created and reviewed. CONTRAST: 100 mL of visipaque 320 administered intravenously. COMPARISON: There are no prior studies for comparison. FINDINGS: Lungs and pleural spaces: Trachea and main bronchi are patent. There are bilateral paraseptal emphysematous with multiple blebs and bulla. There are additional centrilobular emphysematous changes in the upper lobes. There are panlobular emphysematous changes at the lung bases. There is nodular pleural scarring at the lung apices right greater than left.. There are multiple partially calcified pulmonary nodules. There is a 13 x 14 mm are shortly calcified right middle lobe nodule. There is a 6 x 6 mm partially calcified right lower lobe nodule. There is a 12 x 18 mm partially calcified left lower lobe nodule. There is a 10 x 13 mm partially calcified left lower lobe nodule. There are additional small partially calcified and noncalcified nodules. There is no lobar or segmental consolidation. There are no effusions. Heart and vasculature: Heart size is normal. There are coronary artery calcifications. Ascending aorta is mildly dilated 4.17 m in diameter. There is perfusion of the 3 arch vessels. There is tapering at the arch. Pulmonary vessels are unremarkable. Mediastinum: There are multiple small calcified mediastinal and left hilar nodes. Esophagus is unremarkable. There is a small hiatal hernia Thyroid: Thyroid is not optimally demonstrated. Bones/joints: There are degenerative changes in the osseus structures. Soft tissues: unremarkable Vasculature: See above. Lymph nodes: See above. Upper abdomen: Refer to report for abdominal findings IMPRESSION: Prior granulomatous disease with multiple partially calcified nodules bilaterally consistent with granulomas; occasional small noncalcified nodules possibly noncalcified granulomas; emphysema; atherosclerotic disease with mildly dilated ascending aorta Small noncalcified nodules: For low-risk patients, no follow-up is necessary. For high-risk patients (smoking history or other known risk factors) an optional chest CT at 12 months could be performed. EXAM: CT Abdomen and Pelvis With Intravenous Contrast EXAM DATE/TIME: 04/23/2017 11:07 AM CLINICAL HISTORY: 71 years old, male; Signs and symptoms and condition or disease; Stomach condition; Other: Gi bleeding; Other: Distention; Lung condition and disease; Other: Pain; Wheezing TECHNIQUE: Axial computed tomography images of the abdomen and pelvis with intravenous contrast. All CT scans at this facility use one or more dose reduction techniques, viz.: automated exposure control; ma/kV adjustment per patient size (including targeted exams where dose is matched to indication; i.e. head); or iterative reconstruction technique. Coronal and sagittal reformatted images were created and reviewed. CONTRAST: 100 mL of visipaque 320 administered intravenously. COMPARISON: There are no prior studies for comparison. FINDINGS: Artifacts: Motion artifact degrades image quality. Lower thorax: Refer to prior report for chest findings ABDOMEN: Liver: There are multiple granulomas in the liver. Gallbladder and bile ducts: unremarkable Pancreas: Pancreas is mildly atrophic. Spleen: There are multiple granulomas in the spleen. Adrenals: unremarkable Kidneys and ureters: There are bilateral renal cysts. There are additional low attenuation renal lesions too small to characterize. Kidneys and ureters are otherwise unremarkable. Stomach and bowel: There is a small hiatal hernia Stomach is incompletely distended which accentuates the gastric wall.Bowel rotation is normal. Small bowel is mildly distended with fluid and air. There is fluid and air in the terminal ileum. Appendix is not visualized. There is no pericecal inflammation.There is moderate stool and air in the colon. Sigmoid extends into a nonobstructing left inguinal hernia. Streak and motion limit evaluation of the bowel. Appendix: See stomach and bowel PELVIS: Bladder: Bladder is almost empty. There is a Tran catheter. There is a small amount of air in the bladder. Reproductive: Prostate is enlarged. Seminal vesicles are obscured by streak artifact. ABDOMEN and PELVIS: Intraperitoneal space: There is no free air or free fluid. Bones/joints: Bony structures are osteopenic. There is streak artifact from a right hip prosthesis. There is partial ankylosis of the right sacroiliac joint. There are degenerative changes. Soft tissues: There are small bilateral nonobstructing inguinal hernias. There is sigmoid colon in the left inguinal hernia. There are nondilated fluid-filled ileal loops in the right inguinal hernia. Vasculature: There are vascular calcifications. Lymph nodes: There is no pathologic adenopathy. IMPRESSION: Prior granulomatous disease; bilateral renal cysts; bilateral nonobstructing inguinal hernias; probable constipation; limited evaluation of the bowel due to the streak and motion
--- NOTE | 2017-04-24 05:52 | HP ---
CHIEF COMPLAINT: Bright red blood per rectum, noticed by the patient's brother this morning. HISTORY OF PRESENT ILLNESS: Mr. Walters is a 71-year-old male with past medical history of diabetes mellitus, schizophrenia, BPH, COPD, questionable neuropathy, came into the ED, brought by the patient's family as patient's brother noticed him to be having blood in the toilet after the patient went to the bathroom. All the history obtained from the patient's brother, Clarissa Walters, by calling at [phone]. As per the patient's brother, patient is at his baseline mental status. For the past one week, he has been eating okay, but feeling tired, lack of energy, not doing anything, sleeping all the time. But this morning, he noticed blood in the toilet and patient was brought into the Emergency Room for further evaluation. When I asked the patient, he denied any complaints of headache or dizziness. Denied any chest pains, shortness of breath, or wheezing. Denied any urinary complaints, but complaining of low back pain, and he claims that he has been taking pain medications for the low back pain. He could not recall what medication he was taking at home for the low back pain. PAST SURGICAL HISTORY: Underwent some surgery to his feet many years ago as per the brother. FAMILY HISTORY: Breast CA in mother. Father from natural causes. PAST MEDICAL HISTORY: As described, schizophrenia, diabetes mellitus, BPH, neuropathy, COPD. PERSONAL HISTORY: He is single, unmarried, not having any children, has been living with his elder brother at home. SOCIAL HISTORY: He smokes more than one pack per day for many years. Denies any alcohol or drug abuse. ALLERGIES: NO KNOWN DRUG ALLERGIES. MEDICATIONS: As per brother include Flomax 0.4 mg daily, gabapentin 100 mg daily, Singulair 10 mg daily, olanzapine 20 mg daily, vitamin D 1.25 mg daily, ranitidine 300 mg daily, daily vitamin tablets, Januvia 100 mg daily, finasteride 5 mg daily. REVIEW OF SYSTEMS: As described in history of present illness. All other systems reviewed and were found to be negative. PHYSICAL EXAMINATION: GENERAL: Elderly male lying in bed, in no acute distress. VITAL SIGNS: Blood pressure is still lower in 80s and low 90s, pulse is 82, respirations 18, temperature 97.7 degrees Fahrenheit, O2 saturations 99% on room air. HEENT: Pupils equal, round, and reacting to light and accommodation. Extraocular muscles intact. No icterus. Positive pallor. No oral thrush. Dry mucous membranes. NECK: Supple. No JVD. CHEST: Moving equally bilaterally on respiration. LUNGS: Bilateral vesicular breath sounds. No wheezing, no rhonchi. CARDIOVASCULAR SYSTEM: S1 and S2 present, regular. ABDOMEN: Soft, nontender, bowel sounds present. No guarding, no rigidity, no rebound tenderness noted. CENTRAL NERVOUS SYSTEM: Alert, awake, oriented x1-2. No focal deficits noted. EXTREMITIES: No edema. Palpable peripheral pulses. LABORATORY DATA: Done from the ED, WBC 20.5, hemoglobin 6.7, hematocrit 20.3, platelets 342. Sodium 131, potassium 4.9, chloride 104, bicarb 16, BUN 52, creatinine 0.8, glucose 170, hemoglobin A1C 5.7, lactic acid 1.3, calcium 7.7. LFTs within normal limits. Lipase 104. UA specific gravity 1.015, pH 5.0, blood 1+, wbc 1, rbc 6. Stool occult blood positive. Urine drug screen negative. Alcohol less than 10. Repeat CBC after 2 units of PRBC; WBC 11.1, hemoglobin 6.3, hematocrit 19.1, platelets 214. Chest x-ray consistent with biapical pleural thickening with upper lobe scattered nodularity, granulomatous changes. ASSESSMENT: Elderly male with history of schizophrenia, diabetes mellitus, benign prostatic hyperplasia, chronic obstructive pulmonary disease, neuropathy, admitted for bright red blood per rectum, noticed by the patient's family this morning and one-week history of not feeling well, tired, and lack of energy as noted by the family. In the Emergency Department, patient was found to be having elevated white blood cell count, low hemoglobin and hematocrit, and stool occult blood positive, and patient is being admitted for further evaluation. Patient has been persistently hypotensive. 1. Persistent hypotension secondary to hypovolemia from acute blood loss. 2. Possible lower gastrointestinal bleeding, rule out upper gastrointestinal bleeding. 3. Acute blood loss anemia. 4. Elevated white blood cell count. 5. History of diabetes mellitus. 6. History of benign prostatic hyperplasia. 7. History of chronic obstructive pulmonary disease. 8. History of schizophrenia. 9. History of neuropathy. PLAN: Patient received intravenous fluids and 2 units of packed red blood cells. Repeat hemoglobin remained at 6.3 after 2 units, and patient is persistently hypotensive. We will transfuse 2 more units of packed red blood cells. Patient received proton-pump inhibitor, and on Protonix drip started by Emergency Department. It was discontinued. Patient was evaluated by Intensive Care Unit and did not think patient needed to go to Intensive Care Unit, as patient has been having persistent hypotension and low hemoglobin and hematocrit despite 2 units of packed red blood cells. We will request Intensive Care Unit evaluation. We will transfuse 2 units, do serial CBCs, transfuse as needed. We will obtain Gastroenterology consult with Dr. Lopez. We will consider surgical evaluation. Patient was not able to get CT scan because of hypotension. We will repeat labs in the morning, check iron studies, check hemoglobin A1c. We will hold Januvia, do Accu-Chek q. 6 hours, keep the patient n.p.o. We will restart his home medications. Patient received Zosyn and vancomycin in the Emergency Room. We will follow urine culture, blood culture results. We will hold antibiotics for now. Discussed with patient's brother, Clarissa Walters, regarding his DNR status. Patient's brother wants everything done at this time including CPR, blood pressure medication and intubation. We will continue with aggressive management as per patient's family's wishes. We will add further recommendations as his clinical course progresses. Ana Song MD
[2017-04-24 06:42] LABS: BASO % 0.4 % (0.0-2.0); EOS % 0.1 % (0.0-4.0); HEMOGLOBIN 7.5 g/dL (12.0-18.0); LYMPH # 3.2 K/uL (1.0-4.3); LYMPH % 28.9 % (20.0-40.0); MEAN CELL VOLUME 88.2 fL (80.0-94.0); MONO # 0.7 K/uL (0.0-0.8); MONO % 6.3 % (0.0-10.0); NEUT # 7.2 K/uL (1.8-7.0); NEUT % 64.3 % (50.0-75.0); RBC 2.49 Mil/uL (4.40-5.90); RED CELL DISTRIBUTION WIDTH 13.9 % (11.5-14.5); WHITE BLOOD COUNT 11.2 K/uL (4.8-10.8)
[2017-04-24 09:07] LABS: BLOOD UREA NITROGEN 38 mg/dL (9-20)
[2017-04-24 09:08] LABS: GFR AFRICAN-AMERICAN > 60; GFR NON-AFRICAN AMERICAN > 60
[2017-04-24 09:09] LABS: ALBUMIN 2.5 g/dL (3.5-5.0)
[2017-04-24 09:10] LABS: ALB/GLOB RATIO 0.9 (1.0-2.1); ALT/SGPT 29 U/L (21-72); AST/SGOT 22 U/L (17-59)
[2017-04-24 09:11] LABS: HDL CHOLESTEROL 14 mg/dL (30-70); LDL CHOLESTEROL 52 mg/dL (0-129)
[2017-04-24] MEDS ORDERED: Sodium Chloride 0.9% 500 ML IV ONE (09:45)
--- NOTE | 2017-04-24 10:04 | CP.PCM.PN ---
Subjective - Date & Time of Evaluation Date of Evaluation: 04/24/17 Time of Evaluation: 10:00 - Subjective Subjective: Progress note dictated #[id number] Objective - Vital Signs/Intake and Output Vital Signs (last 24 hours): Temp Pulse Resp BP Pulse Ox 97.0 F L 72 20 88/44 L 100 04/24/17 07:08 04/24/17 08:15 04/24/17 07:08 04/24/17 07:16 04/24/17 07:08 Intake and Output: 04/24/17 04/24/17 06:59 18:59 Intake Total 0 Output Total 750 Balance -750 - Medications Medications: Current Medications Sodium Chloride (Sodium Chloride 0.9%) 500 mls @ 250 mls/hr IV .Q2H ONE Stop: 04/24/17 11:44 Pneumococcal Polyvalent Vaccine (Pneumovax 23 Vaccine) 0.5 ml IM .ONCE ONE Stop: 04/26/17 10:01 - Labs Labs: 04/24/17 06:33 04/23/17 18:48 PT 13.8 SECONDS (9.7-12.2) H 04/23/17 11:30 INR 1.2 04/23/17 11:30 APTT 23 SECONDS (21-34) 04/23/17 11:30
--- NOTE | 2017-04-24 10:17 | CP.CCUPN ---
<Vera Yang - Last Filed: 04/24/17 11:05> CCU Subjective - Physician Review Subjective (Free Text): 04/24/17 10:58 Patient seen and examined at bedside. Patient resting comfortably in bed with no new complaints at this time other than some mild generalized abdominal pain. Patient came from the floor where he received 3U of pRBCs overnight with minimal improvement in his H&H. Patient's speech seems more organized today that when we spoke yesterday in the ED. Patient has a 1-to-1 in the room with him. CCU Objective - Vital Signs / Intake & Output Vital Signs (Last 4 hours): Vital Signs Temp Pulse Resp BP Pulse Ox 04/24/17 08:15 72 04/24/17 07:16 88/44 L 04/24/17 07:15 86/48 L 04/24/17 07:08 97.0 F L 78 20 100 Intake and Output (Last 8hrs): Intake & Output 04/23/17 04/24/17 04/24/17 22:59 06:59 14:59 Intake Total 0 Output Total 750 Balance -750 Intake: Oral 0 Output: Urine 750 Urethral (Tran) 750 - Physical Exam Physical Exam Limitations: Positive for: Other (schizophrenia ) Head: Positive for: Atraumatic, Normocephalic Pupils: Positive for: PERRL Extroacular Muscles: Positive for: EOMI Conjunctiva: Positive for: Normal Mouth: Positive for: Moist Mucous Membranes Respiratory/Chest: Positive for: Decreased Breath Sounds, Rhonchi. Negative for : Respiratory Distress, Accessory Muscle Use, Wheezes, Rales Cardiovascular: Positive for: Regular Rate and Rhythm, Normal S1, S2 Abdomen: Positive for: Normal Bowel Sounds. Negative for: Tenderness, Distention Upper Extremity: Positive for: Normal Inspection Lower Extremity: Positive for: Normal Inspection Neurological: Positive for: GCS=15 Skin: Positive for: Warm, Dry, Normal Color. Negative for: Rashes Psychiatric: Positive for: Alert - Medications Active Medications: Active Medications Generic Name Dose Route Start Last Admin Trade Name Freq PRN Reason Stop Dose Admin Sodium Chloride 500 mls @ 250 mls/hr 04/24/17 09:45 Sodium Chloride 0.9% IV 04/24/17 11:44 .Q2H ONE Pneumococcal Polyvalent Vaccine 0.5 ml 04/26/17 10:00 Pneumovax 23 Vaccine IM 04/26/17 10:01 .ONCE ONE - Patient Studies Lab Studies: Lab Studies 04/24/17 04/24/17 04/23/17 Range/Units 06:33 06:14 18:48 WBC 11.2 H (4.8-10.8) K/uL RBC 2.49 L (4.40-5.90) Mil/uL Hgb 7.5 L (12.0-18.0) g/dL Hct 22.0 L (35.0-51.0) % MCV 88.2 (80.0-94.0) fL MCH 30.0 (27.0-31.0) pg MCHC 34.0 (33.0-37.0) g/dL RDW 13.9 (11.5-14.5) % Plt Count 211 (130-400) K/uL MPV 7.0 L (7.2-11.7) fL Neut % (Auto) 64.3 (50.0-75.0) % Lymph % (Auto) 28.9 (20.0-40.0) % Bertie % (Auto) 6.3 (0.0-10.0) % Eos % (Auto) 0.1 (0.0-4.0) % Baso % (Auto) 0.4 (0.0-2.0) % Neut # 7.2 H (1.8-7.0) K/uL Lymph # 3.2 (1.0-4.3) K/uL Bertie # 0.7 (0.0-0.8) K/uL Eos # 0.0 (0.0-0.7) K/uL Baso # 0.0 (0.0-0.2) K/uL Retic Count (0.5-1.5) % PT (9.7-12.2) SECONDS INR APTT (21-34) SECONDS pO2 (30-55) mm/Hg VBG pH (7.32-7.43) VBG pCO2 (40-60) mmHg VBG HCO3 mmol/L VBG Total CO2 (22-28) mmol/L VBG O2 Sat (Calc) (40-65) % VBG Base Excess (0.0-2.0) mmol/L VBG Potassium (3.6-5.2) mmol/L Glucose (75-110) mg/dl Lactate (0.7-2.1) mmol/L Sodium (132-148) mmol/L Potassium (3.6-5.2) mmol/L Chloride (98-107) mmol/L Carbon Dioxide (22-30) mmol/L Anion Gap (10-20) BUN (9-20) mg/dL Creatinine (0.8-1.5) mg/dL Est GFR ( Amer) Est GFR (Non-Af Amer) POC Glucose (mg/dL) 96 (65-110) mg/dL Random Glucose (75-110) mg/dL Hemoglobin A1c (4.2-6.5) % Lactic Acid 1.3 (0.7-2.1) mmol/L Calcium (8.6-10.4) mg/dl % Saturation (20-55) Ferritin ng/mL Total Bilirubin (0.2-1.3) mg/dL AST (17-59) U/L ALT (21-72) U/L Alkaline Phosphatase (38-126) U/L Total Protein (6.3-8.3) g/dL Albumin (3.5-5.0) g/dL Globulin (2.2-3.9) gm/dL Albumin/Globulin Ratio (1.0-2.1) Triglycerides (0-149) mg/dL Cholesterol (0-199) mg/dL LDL Cholesterol Direct (0-129) mg/dL HDL Cholesterol (30-70) mg/dL Lipase (23-300) U/L Folate ng/mL Procalcitonin (0.19-0.49) NG/ML Venous Blood Potassium (3.6-5.2) mmol/L Urine Color (YELLOW) Urine Clarity (Clear) Urine pH (5.0-8.0) Ur Specific [place] (1.003-1.030) Urine Protein (NEGATIVE) mg/dL Urine Glucose (UA) (Normal) mg/dL Urine Ketones (NEGATIVE) mg/dL Urine Blood (NEGATIVE) Urine Nitrate (NEGATIVE) Urine Bilirubin (NEGATIVE) Urine Urobilinogen (0.2-1.0) mg/dL Ur Leukocyte Esterase (Negative) Jazzy/uL Urine WBC (Auto) (0-5) /hpf Urine RBC (Auto) (0-3) /hpf Ur Squamous Epith Cells (0-5) /hpf Urine Bacteria (<OCC) Stool Occult Blood (NEGATIVE) Urine Opiates Screen (NEGATIVE) Urine Methadone Screen (NEGATIVE) Ur Barbiturates Screen (NEGATIVE) Ur Phencyclidine Scrn (NEGATIVE) Ur Amphetamines Screen (NEGATIVE) U Benzodiazepines Scrn (NEGATIVE) U Oth Cocaine Metabols (NEGATIVE) U Cannabinoids Screen (NEGATIVE) Alcohol, Quantitative (0-10) mg/dl Blood Type Blood Type Confirm Antibody Screen 04/23/17 04/23/17 04/23/17 Range/Units 18:48 18:48 18:48 WBC (4.8-10.8) K/uL RBC (4.40-5.90) Mil/uL Hgb (12.0-18.0) g/dL Hct (35.0-51.0) % MCV (80.0-94.0) fL MCH (27.0-31.0) pg MCHC (33.0-37.0) g/dL RDW (11.5-14.5) % Plt Count (130-400) K/uL MPV (7.2-11.7) fL Neut % (Auto) (50.0-75.0) % Lymph % (Auto) (20.0-40.0) % Bertie % (Auto) (0.0-10.0) % Eos % (Auto) (0.0-4.0) % Baso % (Auto) (0.0-2.0) % Neut # (1.8-7.0) K/uL Lymph # (1.0-4.3) K/uL Bertie # (0.0-0.8) K/uL Eos # (0.0-0.7) K/uL Baso # (0.0-0.2) K/uL Retic Count (0.5-1.5) % PT (9.7-12.2) SECONDS INR APTT (21-34) SECONDS pO2 (30-55) mm/Hg VBG pH (7.32-7.43) VBG pCO2 (40-60) mmHg VBG HCO3 mmol/L VBG Total CO2 (22-28) mmol/L VBG O2 Sat (Calc) (40-65) % VBG Base Excess (0.0-2.0) mmol/L VBG Potassium (3.6-5.2) mmol/L Glucose (75-110) mg/dl Lactate (0.7-2.1) mmol/L Sodium (132-148) mmol/L Potassium (3.6-5.2) mmol/L Chloride (98-107) mmol/L Carbon Dioxide (22-30) mmol/L Anion Gap (10-20) BUN (9-20) mg/dL Creatinine (0.8-1.5) mg/dL Est GFR ( Amer) Est GFR (Non-Af Amer) POC Glucose (mg/dL) (65-110) mg/dL Random Glucose (75-110) mg/dL Hemoglobin A1c 5.7 (4.2-6.5) % Lactic Acid (0.7-2.1) mmol/L Calcium (8.6-10.4) mg/dl % Saturation 54 (20-55) Ferritin ng/mL Total Bilirubin (0.2-1.3) mg/dL AST (17-59) U/L ALT (21-72) U/L Alkaline Phosphatase (38-126) U/L Total Protein (6.3-8.3) g/dL Albumin (3.5-5.0) g/dL Globulin (2.2-3.9) gm/dL Albumin/Globulin Ratio (1.0-2.1) Triglycerides (0-149) mg/dL Cholesterol (0-199) mg/dL LDL Cholesterol Direct (0-129) mg/dL HDL Cholesterol (30-70) mg/dL Lipase (23-300) U/L Folate ng/mL Procalcitonin 0.06 L (0.19-0.49) NG/ML Venous Blood Potassium (3.6-5.2) mmol/L Urine Color (YELLOW) Urine Clarity (Clear) Urine pH (5.0-8.0) Ur Specific [place] (1.003-1.030) Urine Protein (NEGATIVE) mg/dL Urine Glucose (UA) (Normal) mg/dL Urine Ketones (NEGATIVE) mg/dL Urine Blood (NEGATIVE) Urine Nitrate (NEGATIVE) Urine Bilirubin (NEGATIVE) Urine Urobilinogen (0.2-1.0) mg/dL Ur Leukocyte Esterase (Negative) Jazzy/uL Urine WBC (Auto) (0-5) /hpf Urine RBC (Auto) (0-3) /hpf Ur Squamous Epith Cells (0-5) /hpf Urine Bacteria (<OCC) Stool Occult Blood (NEGATIVE) Urine Opiates Screen (NEGATIVE) Urine Methadone Screen (NEGATIVE) Ur Barbiturates Screen (NEGATIVE) Ur Phencyclidine Scrn (NEGATIVE) Ur Amphetamines Screen (NEGATIVE) U Benzodiazepines Scrn (NEGATIVE) U Oth Cocaine Metabols (NEGATIVE) U Cannabinoids Screen (NEGATIVE) Alcohol, Quantitative (0-10) mg/dl Blood Type Blood Type Confirm Antibody Screen 04/23/17 04/23/17 04/23/17 Range/Units 18:48 18:48 18:00 WBC 11.1 H (4.8-10.8) K/uL RBC 2.15 L (4.40-5.90) Mil/uL Hgb 6.3 L* (12.0-18.0) g/dL Hct 19.1 L (35.0-51.0) % MCV 88.8 D (80.0-94.0) fL MCH 29.4 (27.0-31.0) pg MCHC 33.1 (33.0-37.0) g/dL RDW 13.6 (11.5-14.5) % Plt Count 214 D (130-400) K/uL MPV 7.2 (7.2-11.7) fL Neut % (Auto) (50.0-75.0) % Lymph % (Auto) 27.3 (20.0-40.0) % Bertie % (Auto) 5.8 (0.0-10.0) % Eos % (Auto) 0.3 (0.0-4.0) % Baso % (Auto) 0.6 (0.0-2.0) % Neut # (1.8-7.0) K/uL Lymph # 3.0 (1.0-4.3) K/uL Bertie # 0.6 (0.0-0.8) K/uL Eos # 0.0 (0.0-0.7) K/uL Baso # 0.1 (0.0-0.2) K/uL Retic Count 2.2 H (0.5-1.5) % PT (9.7-12.2) SECONDS INR APTT (21-34) SECONDS pO2 (30-55) mm/Hg VBG pH (7.32-7.43) VBG pCO2 (40-60) mmHg VBG HCO3 mmol/L VBG Total CO2 (22-28) mmol/L VBG O2 Sat (Calc) (40-65) % VBG Base Excess (0.0-2.0) mmol/L VBG Potassium (3.6-5.2) mmol/L Glucose (75-110) mg/dl Lactate (0.7-2.1) mmol/L Sodium Cancelled 133 (132-148) mmol/L Potassium Cancelled 4.0 (3.6-5.2) mmol/L Chloride Cancelled 106 (98-107) mmol/L Carbon Dioxide Cancelled 21 L (22-30) mmol/L Anion Gap Cancelled 10 (10-20) BUN Cancelled 38 H (9-20) mg/dL Creatinine 0.7 L (0.8-1.5) mg/dL Est GFR ( Amer) Cancelled > 60 Est GFR (Non-Af Amer) Cancelled > 60 POC Glucose (mg/dL) (65-110) mg/dL Random Glucose Cancelled 101 (75-110) mg/dL Hemoglobin A1c (4.2-6.5) % Lactic Acid (0.7-2.1) mmol/L Calcium Cancelled 7.0 L (8.6-10.4) mg/dl % Saturation (20-55) Ferritin 107.0 ng/mL Total Bilirubin Cancelled 0.9 (0.2-1.3) mg/dL AST Cancelled 22 (17-59) U/L ALT Cancelled 29 (21-72) U/L Alkaline Phosphatase Cancelled 36 L (38-126) U/L Total Protein Cancelled 5.3 L (6.3-8.3) g/dL Albumin Cancelled 2.5 L D (3.5-5.0) g/dL Globulin Cancelled 2.7 (2.2-3.9) gm/dL Albumin/Globulin Ratio Cancelled 0.9 L (1.0-2.1) Triglycerides Cancelled 218 H (0-149) mg/dL Cholesterol Cancelled 93 (0-199) mg/dL LDL Cholesterol Direct Cancelled 52 (0-129) mg/dL HDL Cholesterol Cancelled 14 L (30-70) mg/dL Lipase (23-300) U/L Folate 15.0 ng/mL Procalcitonin (0.19-0.49) NG/ML Venous Blood Potassium (3.6-5.2) mmol/L Urine Color (YELLOW) Urine Clarity (Clear) Urine pH (5.0-8.0) Ur Specific [place] (1.003-1.030) Urine Protein (NEGATIVE) mg/dL Urine Glucose (UA) (Normal) mg/dL Urine Ketones (NEGATIVE) mg/dL Urine Blood (NEGATIVE) Urine Nitrate (NEGATIVE) Urine Bilirubin (NEGATIVE) Urine Urobilinogen (0.2-1.0) mg/dL Ur Leukocyte Esterase (Negative) Jazzy/uL Urine WBC (Auto) (0-5) /hpf Urine RBC (Auto) (0-3) /hpf Ur Squamous Epith Cells (0-5) /hpf Urine Bacteria (<OCC) Stool Occult Blood (NEGATIVE) Urine Opiates Screen (NEGATIVE) Urine Methadone Screen (NEGATIVE) Ur Barbiturates Screen (NEGATIVE) Ur Phencyclidine Scrn (NEGATIVE) Ur Amphetamines Screen (NEGATIVE) U Benzodiazepines Scrn (NEGATIVE) U Oth Cocaine Metabols (NEGATIVE) U Cannabinoids Screen (NEGATIVE) Alcohol, Quantitative (0-10) mg/dl Blood Type Blood Type Confirm Antibody Screen 04/23/17 04/23/17 04/23/17 Range/Units 16:50 16:49 16:49 WBC (4.8-10.8) K/uL RBC (4.40-5.90) Mil/uL Hgb (12.0-18.0) g/dL Hct (35.0-51.0) % MCV (80.0-94.0) fL MCH (27.0-31.0) pg MCHC (33.0-37.0) g/dL RDW (11.5-14.5) % Plt Count (130-400) K/uL MPV (7.2-11.7) fL Neut % (Auto) (50.0-75.0) % Lymph % (Auto) (20.0-40.0) % Bertie % (Auto) (0.0-10.0) % Eos % (Auto) (0.0-4.0) % Baso % (Auto) (0.0-2.0) % Neut # (1.8-7.0) K/uL Lymph # (1.0-4.3) K/uL Bertie # (0.0-0.8) K/uL Eos # (0.0-0.7) K/uL Baso # (0.0-0.2) K/uL Retic Count (0.5-1.5) % PT (9.7-12.2) SECONDS INR APTT (21-34) SECONDS pO2 58 H (30-55) mm/Hg VBG pH 7.38 (7.32-7.43) VBG pCO2 33 L (40-60) mmHg VBG HCO3 21.0 mmol/L VBG Total CO2 20.5 L (22-28) mmol/L VBG O2 Sat (Calc) 96.9 H (40-65) % VBG Base Excess -4.7 L (0.0-2.0) mmol/L VBG Potassium 4.0 (3.6-5.2) mmol/L Glucose 108 (75-110) mg/dl Lactate 1.7 (0.7-2.1) mmol/L Sodium 140.0 (132-148) mmol/L Potassium (3.6-5.2) mmol/L Chloride 115.0 H (98-107) mmol/L Carbon Dioxide (22-30) mmol/L Anion Gap (10-20) BUN (9-20) mg/dL Creatinine (0.8-1.5) mg/dL Est GFR ( Amer) Est GFR (Non-Af Amer) POC Glucose (mg/dL) (65-110) mg/dL Random Glucose (75-110) mg/dL Hemoglobin A1c (4.2-6.5) % Lactic Acid (0.7-2.1) mmol/L Calcium (8.6-10.4) mg/dl % Saturation (20-55) Ferritin ng/mL Total Bilirubin (0.2-1.3) mg/dL AST (17-59) U/L ALT (21-72) U/L Alkaline Phosphatase (38-126) U/L Total Protein (6.3-8.3) g/dL Albumin (3.5-5.0) g/dL Globulin (2.2-3.9) gm/dL Albumin/Globulin Ratio (1.0-2.1) Triglycerides (0-149) mg/dL Cholesterol (0-199) mg/dL LDL Cholesterol Direct (0-129) mg/dL HDL Cholesterol (30-70) mg/dL Lipase (23-300) U/L Folate ng/mL Procalcitonin (0.19-0.49) NG/ML Venous Blood Potassium 4.0 (3.6-5.2) mmol/L Urine Color Straw (YELLOW) Urine Clarity Clear (Clear) Urine pH 5.0 (5.0-8.0) Ur Specific [place] 1.015 (1.003-1.030) Urine Protein Negative (NEGATIVE) mg/dL Urine Glucose (UA) Normal (Normal) mg/dL Urine Ketones Negative (NEGATIVE) mg/dL Urine Blood 1+ H (NEGATIVE) Urine Nitrate Negative (NEGATIVE) Urine Bilirubin Negative (NEGATIVE) Urine Urobilinogen Normal (0.2-1.0) mg/dL Ur Leukocyte Esterase Neg (Negative) Jazzy/uL Urine WBC (Auto) 1 (0-5) /hpf Urine RBC (Auto) 6 H (0-3) /hpf Ur Squamous Epith Cells < 1 (0-5) /hpf Urine Bacteria Rare (<OCC) Stool Occult Blood (NEGATIVE) Urine Opiates Screen Negative (NEGATIVE) Urine Methadone Screen Negative (NEGATIVE) Ur Barbiturates Screen Negative (NEGATIVE) Ur Phencyclidine Scrn Negative (NEGATIVE) Ur Amphetamines Screen Negative (NEGATIVE) U Benzodiazepines Scrn Negative (NEGATIVE) U Oth Cocaine Metabols Negative (NEGATIVE) U Cannabinoids Screen Negative (NEGATIVE) Alcohol, Quantitative (0-10) mg/dl Blood Type Blood Type Confirm Antibody Screen 04/23/17 04/23/17 04/23/17 Range/Units 12:39 11:33 11:30 WBC (4.8-10.8) K/uL RBC (4.40-5.90) Mil/uL Hgb (12.0-18.0) g/dL Hct (35.0-51.0) % MCV (80.0-94.0) fL MCH (27.0-31.0) pg MCHC (33.0-37.0) g/dL RDW (11.5-14.5) % Plt Count (130-400) K/uL MPV (7.2-11.7) fL Neut % (Auto) (50.0-75.0) % Lymph % (Auto) (20.0-40.0) % Bertie % (Auto) (0.0-10.0) % Eos % (Auto) (0.0-4.0) % Baso % (Auto) (0.0-2.0) % Neut # (1.8-7.0) K/uL Lymph # (1.0-4.3) K/uL Bertie # (0.0-0.8) K/uL Eos # (0.0-0.7) K/uL Baso # (0.0-0.2) K/uL Retic Count (0.5-1.5) % PT (9.7-12.2) SECONDS INR APTT (21-34) SECONDS pO2 20 L (30-55) mm/Hg VBG pH 7.22 L (7.32-7.43) VBG pCO2 42 (40-60) mmHg VBG HCO3 15.0 mmol/L VBG Total CO2 18.5 L (22-28) mmol/L VBG O2 Sat (Calc) 36.4 L (40-65) % VBG Base Excess -10.1 L (0.0-2.0) mmol/L VBG Potassium 3.7 (3.6-5.2) mmol/L Glucose 111 H (75-110) mg/dl Lactate 3.7 H (0.7-2.1) mmol/L Sodium 142.0 (132-148) mmol/L Potassium (3.6-5.2) mmol/L Chloride 116.0 H (98-107) mmol/L Carbon Dioxide (22-30) mmol/L Anion Gap (10-20) BUN (9-20) mg/dL Creatinine (0.8-1.5) mg/dL Est GFR ( Amer) Est GFR (Non-Af Amer) POC Glucose (mg/dL) (65-110) mg/dL Random Glucose (75-110) mg/dL Hemoglobin A1c (4.2-6.5) % Lactic Acid (0.7-2.1) mmol/L Calcium (8.6-10.4) mg/dl % Saturation (20-55) Ferritin ng/mL Total Bilirubin (0.2-1.3) mg/dL AST (17-59) U/L ALT (21-72) U/L Alkaline Phosphatase (38-126) U/L Total Protein (6.3-8.3) g/dL Albumin (3.5-5.0) g/dL Globulin (2.2-3.9) gm/dL Albumin/Globulin Ratio (1.0-2.1) Triglycerides (0-149) mg/dL Cholesterol (0-199) mg/dL LDL Cholesterol Direct (0-129) mg/dL HDL Cholesterol (30-70) mg/dL Lipase (23-300) U/L Folate ng/mL Procalcitonin (0.19-0.49) NG/ML Venous Blood Potassium 3.7 (3.6-5.2) mmol/L Urine Color (YELLOW) Urine Clarity (Clear) Urine pH (5.0-8.0) Ur Specific [place] (1.003-1.030) Urine Protein (NEGATIVE) mg/dL Urine Glucose (UA) (Normal) mg/dL Urine Ketones (NEGATIVE) mg/dL Urine Blood (NEGATIVE) Urine Nitrate (NEGATIVE) Urine Bilirubin (NEGATIVE) Urine Urobilinogen (0.2-1.0) mg/dL Ur Leukocyte Esterase (Negative) Jazzy/uL Urine WBC (Auto) (0-5) /hpf Urine RBC (Auto) (0-3) /hpf Ur Squamous Epith Cells (0-5) /hpf Urine Bacteria (<OCC) Stool Occult Blood Positive H (NEGATIVE) Urine Opiates Screen (NEGATIVE) Urine Methadone Screen (NEGATIVE) Ur Barbiturates Screen (NEGATIVE) Ur Phencyclidine Scrn (NEGATIVE) Ur Amphetamines Screen (NEGATIVE) U Benzodiazepines Scrn (NEGATIVE) U Oth Cocaine Metabols (NEGATIVE) U Cannabinoids Screen (NEGATIVE) Alcohol, Quantitative < 10 (0-10) mg/dl Blood Type Blood Type Confirm Antibody Screen 04/23/17 04/23/17 04/23/17 Range/Units 11:30 11:30 11:30 WBC (4.8-10.8) K/uL RBC (4.40-5.90) Mil/uL Hgb (12.0-18.0) g/dL Hct (35.0-51.0) % MCV (80.0-94.0) fL MCH (27.0-31.0) pg MCHC (33.0-37.0) g/dL RDW (11.5-14.5) % Plt Count (130-400) K/uL MPV (7.2-11.7) fL Neut % (Auto) (50.0-75.0) % Lymph % (Auto) (20.0-40.0) % Bertie % (Auto) (0.0-10.0) % Eos % (Auto) (0.0-4.0) % Baso % (Auto) (0.0-2.0) % Neut # (1.8-7.0) K/uL Lymph # (1.0-4.3) K/uL Bertie # (0.0-0.8) K/uL Eos # (0.0-0.7) K/uL Baso # (0.0-0.2) K/uL Retic Count (0.5-1.5) % PT 13.8 H (9.7-12.2) SECONDS INR 1.2 APTT 23 (21-34) SECONDS pO2 (30-55) mm/Hg VBG pH (7.32-7.43) VBG pCO2 (40-60) mmHg VBG HCO3 mmol/L VBG Total CO2 (22-28) mmol/L VBG O2 Sat (Calc) (40-65) % VBG Base Excess (0.0-2.0) mmol/L VBG Potassium (3.6-5.2) mmol/L Glucose (75-110) mg/dl Lactate (0.7-2.1) mmol/L Sodium 131 L (132-148) mmol/L Potassium 4.9 (3.6-5.2) mmol/L Chloride 104 (98-107) mmol/L Carbon Dioxide 16 L (22-30) mmol/L Anion Gap 17 (10-20) BUN 52 H (9-20) mg/dL Creatinine 0.8 (0.8-1.5) mg/dL Est GFR ( Amer) > 60 Est GFR (Non-Af Amer) > 60 POC Glucose (mg/dL) (65-110) mg/dL Random Glucose 170 H (75-110) mg/dL Hemoglobin A1c (4.2-6.5) % Lactic Acid (0.7-2.1) mmol/L Calcium 7.7 L (8.6-10.4) mg/dl % Saturation (20-55) Ferritin ng/mL Total Bilirubin 0.4 (0.2-1.3) mg/dL AST 38 (17-59) U/L ALT 25 (21-72) U/L Alkaline Phosphatase 45 (38-126) U/L Total Protein 6.3 (6.3-8.3) g/dL Albumin 3.3 L (3.5-5.0) g/dL Globulin 3.0 (2.2-3.9) gm/dL Albumin/Globulin Ratio 1.1 (1.0-2.1) Triglycerides (0-149) mg/dL Cholesterol (0-199) mg/dL LDL Cholesterol Direct (0-129) mg/dL HDL Cholesterol (30-70) mg/dL Lipase 104 (23-300) U/L Folate ng/mL Procalcitonin (0.19-0.49) NG/ML Venous Blood Potassium (3.6-5.2) mmol/L Urine Color (YELLOW) Urine Clarity (Clear) Urine pH (5.0-8.0) Ur Specific [place] (1.003-1.030) Urine Protein (NEGATIVE) mg/dL Urine Glucose (UA) (Normal) mg/dL Urine Ketones (NEGATIVE) mg/dL Urine Blood (NEGATIVE) Urine Nitrate (NEGATIVE) Urine Bilirubin (NEGATIVE) Urine Urobilinogen (0.2-1.0) mg/dL Ur Leukocyte Esterase (Negative) Jazzy/uL Urine WBC (Auto) (0-5) /hpf Urine RBC (Auto) (0-3) /hpf Ur Squamous Epith Cells (0-5) /hpf Urine Bacteria (<OCC) Stool Occult Blood (NEGATIVE) Urine Opiates Screen (NEGATIVE) Urine Methadone Screen (NEGATIVE) Ur Barbiturates Screen (NEGATIVE) Ur Phencyclidine Scrn (NEGATIVE) Ur Amphetamines Screen (NEGATIVE) U Benzodiazepines Scrn (NEGATIVE) U Oth Cocaine Metabols (NEGATIVE) U Cannabinoids Screen (NEGATIVE) Alcohol, Quantitative (0-10) mg/dl Blood Type A POSITIVE Blood Type Confirm A POSITIVE Antibody Screen Negative 04/23/17 Range/Units 11:30 WBC 20.5 H (4.8-10.8) K/uL RBC 2.23 L (4.40-5.90) Mil/uL Hgb 6.7 L (12.0-18.0) g/dL Hct 20.3 L (35.0-51.0) % MCV 90.9 (80.0-94.0) fL MCH 29.8 (27.0-31.0) pg MCHC 32.8 L (33.0-37.0) g/dL RDW 13.3 (11.5-14.5) % Plt Count 342 (130-400) K/uL MPV 7.6 (7.2-11.7) fL Neut % (Auto) 84.2 H (50.0-75.0) % Lymph % (Auto) 11.3 L (20.0-40.0) % Bertie % (Auto) 3.6 (0.0-10.0) % Eos % (Auto) 0.1 (0.0-4.0) % Baso % (Auto) 0.8 (0.0-2.0) % Neut # 17.2 H (1.8-7.0) K/uL Lymph # 2.3 (1.0-4.3) K/uL Bertie # 0.7 (0.0-0.8) K/uL Eos # 0.0 (0.0-0.7) K/uL Baso # 0.2 (0.0-0.2) K/uL Retic Count (0.5-1.5) % PT (9.7-12.2) SECONDS INR APTT (21-34) SECONDS pO2 (30-55) mm/Hg VBG pH (7.32-7.43) VBG pCO2 (40-60) mmHg VBG HCO3 mmol/L VBG Total CO2 (22-28) mmol/L VBG O2 Sat (Calc) (40-65) % VBG Base Excess (0.0-2.0) mmol/L VBG Potassium (3.6-5.2) mmol/L Glucose (75-110) mg/dl Lactate (0.7-2.1) mmol/L Sodium (132-148) mmol/L Potassium (3.6-5.2) mmol/L Chloride (98-107) mmol/L Carbon Dioxide (22-30) mmol/L Anion Gap (10-20) BUN (9-20) mg/dL Creatinine (0.8-1.5) mg/dL Est GFR ( Amer) Est GFR (Non-Af Amer) POC Glucose (mg/dL) (65-110) mg/dL Random Glucose (75-110) mg/dL Hemoglobin A1c (4.2-6.5) % Lactic Acid (0.7-2.1) mmol/L Calcium (8.6-10.4) mg/dl % Saturation (20-55) Ferritin ng/mL Total Bilirubin (0.2-1.3) mg/dL AST (17-59) U/L ALT (21-72) U/L Alkaline Phosphatase (38-126) U/L Total Protein (6.3-8.3) g/dL Albumin (3.5-5.0) g/dL Globulin (2.2-3.9) gm/dL Albumin/Globulin Ratio (1.0-2.1) Triglycerides (0-149) mg/dL Cholesterol (0-199) mg/dL LDL Cholesterol Direct (0-129) mg/dL HDL Cholesterol (30-70) mg/dL Lipase (23-300) U/L Folate ng/mL Procalcitonin (0.19-0.49) NG/ML Venous Blood Potassium (3.6-5.2) mmol/L Urine Color (YELLOW) Urine Clarity (Clear) Urine pH (5.0-8.0) Ur Specific [place] (1.003-1.030) Urine Protein (NEGATIVE) mg/dL Urine Glucose (UA) (Normal) mg/dL Urine Ketones (NEGATIVE) mg/dL Urine Blood (NEGATIVE) Urine Nitrate (NEGATIVE) Urine Bilirubin (NEGATIVE) Urine Urobilinogen (0.2-1.0) mg/dL Ur Leukocyte Esterase (Negative) Jazzy/uL Urine WBC (Auto) (0-5) /hpf Urine RBC (Auto) (0-3) /hpf Ur Squamous Epith Cells (0-5) /hpf Urine Bacteria (<OCC) Stool Occult Blood (NEGATIVE) Urine Opiates Screen (NEGATIVE) Urine Methadone Screen (NEGATIVE) Ur Barbiturates Screen (NEGATIVE) Ur Phencyclidine Scrn (NEGATIVE) Ur Amphetamines Screen (NEGATIVE) U Benzodiazepines Scrn (NEGATIVE) U Oth Cocaine Metabols (NEGATIVE) U Cannabinoids Screen (NEGATIVE) Alcohol, Quantitative (0-10) mg/dl Blood Type Blood Type Confirm Antibody Screen Laboratory Results - last 24 hr 04/23/17 04/23/17 04/23/17 11:30 11:30 11:30 WBC 20.5 H RBC 2.23 L Hgb 6.7 L Hct 20.3 L MCV 90.9 MCH 29.8 MCHC 32.8 L RDW 13.3 Plt Count 342 MPV 7.6 Neut % (Auto) 84.2 H Lymph % (Auto) 11.3 L Bertie % (Auto) 3.6 Eos % (Auto) 0.1 Baso % (Auto) 0.8 Neut # 17.2 H Lymph # 2.3 Bertie # 0.7 Eos # 0.0 Baso # 0.2 Retic Count PT 13.8 H INR 1.2 APTT 23 pO2 VBG pH VBG pCO2 VBG HCO3 VBG Total CO2 VBG O2 Sat (Calc) VBG Base Excess VBG Potassium Glucose Lactate Sodium 131 L Potassium 4.9 Chloride 104 Carbon Dioxide 16 L Anion Gap 17 BUN 52 H Creatinine 0.8 Est GFR ( Amer) > 60 Est GFR (Non-Af Amer) > 60 POC Glucose (mg/dL) Random Glucose 170 H Hemoglobin A1c Lactic Acid Calcium 7.7 L % Saturation Ferritin Total Bilirubin 0.4 AST 38 ALT 25 Alkaline Phosphatase 45 Total Protein 6.3 Albumin 3.3 L Globulin 3.0 Albumin/Globulin Ratio 1.1 Triglycerides Cholesterol LDL Cholesterol Direct HDL Cholesterol Lipase 104 Folate Procalcitonin Venous Blood Potassium Urine Color Urine Clarity Urine pH Ur Specific [place] Urine Protein Urine Glucose (UA) Urine Ketones Urine Blood Urine Nitrate Urine Bilirubin Urine Urobilinogen Ur Leukocyte Esterase Urine WBC (Auto) Urine RBC (Auto) Ur Squamous Epith Cells Urine Bacteria Stool Occult Blood Urine Opiates Screen Urine Methadone Screen Ur Barbiturates Screen Ur Phencyclidine Scrn Ur Amphetamines Screen U Benzodiazepines Scrn U Oth Cocaine Metabols U Cannabinoids Screen Alcohol, Quantitative Blood Type Blood Type Confirm Antibody Screen 04/23/17 04/23/17 04/23/17 11:30 11:30 11:33 WBC RBC Hgb Hct MCV MCH MCHC RDW Plt Count MPV Neut % (Auto) Lymph % (Auto) Bertie % (Auto) Eos % (Auto) Baso % (Auto) Neut # Lymph # Bertie # Eos # Baso # Retic Count PT INR APTT pO2 VBG pH VBG pCO2 VBG HCO3 VBG Total CO2 VBG O2 Sat (Calc) VBG Base Excess VBG Potassium Glucose Lactate Sodium Potassium Chloride Carbon Dioxide Anion Gap BUN Creatinine Est GFR ( Amer) Est GFR (Non-Af Amer) POC Glucose (mg/dL) Random Glucose Hemoglobin A1c Lactic Acid Calcium % Saturation Ferritin Total Bilirubin AST ALT Alkaline Phosphatase Total Protein Albumin Globulin Albumin/Globulin Ratio Triglycerides Cholesterol LDL Cholesterol Direct HDL Cholesterol Lipase Folate Procalcitonin Venous Blood Potassium Urine Color Urine Clarity Urine pH Ur Specific [place] Urine Protein Urine Glucose (UA) Urine Ketones Urine Blood Urine Nitrate Urine Bilirubin Urine Urobilinogen Ur Leukocyte Esterase Urine WBC (Auto) Urine RBC (Auto) Ur Squamous Epith Cells Urine Bacteria Stool Occult Blood Positive H Urine Opiates Screen Urine Methadone Screen Ur Barbiturates Screen Ur Phencyclidine Scrn Ur Amphetamines Screen U Benzodiazepines Scrn U Oth Cocaine Metabols U Cannabinoids Screen Alcohol, Quantitative < 10 Blood Type A POSITIVE Blood Type Confirm A POSITIVE Antibody Screen Negative 04/23/17 04/23/17 04/23/17 12:39 16:49 16:49 WBC RBC Hgb Hct MCV MCH MCHC RDW Plt Count MPV Neut % (Auto) Lymph % (Auto) Bertie % (Auto) Eos % (Auto) Baso % (Auto) Neut # Lymph # Bertie # Eos # Baso # Retic Count PT INR APTT pO2 20 L VBG pH 7.22 L VBG pCO2 42 VBG HCO3 15.0 VBG Total CO2 18.5 L VBG O2 Sat (Calc) 36.4 L VBG Base Excess -10.1 L VBG Potassium 3.7 Glucose 111 H Lactate 3.7 H Sodium 142.0 Potassium Chloride 116.0 H Carbon Dioxide Anion Gap BUN Creatinine Est GFR ( Amer) Est GFR (Non-Af Amer) POC Glucose (mg/dL) Random Glucose Hemoglobin A1c Lactic Acid Calcium % Saturation Ferritin Total Bilirubin AST ALT Alkaline Phosphatase Total Protein Albumin Globulin Albumin/Globulin Ratio Triglycerides Cholesterol LDL Cholesterol Direct HDL Cholesterol Lipase Folate Procalcitonin Venous Blood Potassium 3.7 Urine Color Straw Urine Clarity Clear Urine pH 5.0 Ur Specific [place] 1.015 Urine Protein Negative Urine Glucose (UA) Normal Urine Ketones Negative Urine Blood 1+ H Urine Nitrate Negative Urine Bilirubin Negative Urine Urobilinogen Normal Ur Leukocyte Esterase Neg Urine WBC (Auto) 1 Urine RBC (Auto) 6 H Ur Squamous Epith Cells < 1 Urine Bacteria Rare Stool Occult Blood Urine Opiates Screen Negative Urine Methadone Screen Negative Ur Barbiturates Screen Negative Ur Phencyclidine Scrn Negative Ur Amphetamines Screen Negative U Benzodiazepines Scrn Negative U Oth Cocaine Metabols Negative U Cannabinoids Screen Negative Alcohol, Quantitative Blood Type Blood Type Confirm Antibody Screen 04/23/17 04/23/17 04/23/17 16:50 18:00 18:48 WBC 11.1 H RBC 2.15 L Hgb 6.3 L* Hct 19.1 L MCV 88.8 D MCH 29.4 MCHC 33.1 RDW 13.6 Plt Count 214 D MPV 7.2 Neut % (Auto) Lymph % (Auto) 27.3 Bertie % (Auto) 5.8 Eos % (Auto) 0.3 Baso % (Auto) 0.6 Neut # Lymph # 3.0 Bertie # 0.6 Eos # 0.0 Baso # 0.1 Retic Count 2.2 H PT INR APTT pO2 58 H VBG pH 7.38 VBG pCO2 33 L VBG HCO3 21.0 VBG Total CO2 20.5 L VBG O2 Sat (Calc) 96.9 H VBG Base Excess -4.7 L VBG Potassium 4.0 Glucose 108 Lactate 1.7 Sodium 140.0 133 Potassium 4.0 Chloride 115.0 H 106 Carbon Dioxide 21 L Anion Gap 10 BUN 38 H Creatinine 0.7 L Est GFR ( Amer) > 60 Est GFR (Non-Af Amer) > 60 POC Glucose (mg/dL) Random Glucose 101 Hemoglobin A1c Lactic Acid Calcium 7.0 L % Saturation Ferritin Total Bilirubin 0.9 AST 22 ALT 29 Alkaline Phosphatase 36 L Total Protein 5.3 L Albumin 2.5 L D Globulin 2.7 Albumin/Globulin Ratio 0.9 L Triglycerides 218 H Cholesterol 93 LDL Cholesterol Direct 52 HDL Cholesterol 14 L Lipase Folate Procalcitonin Venous Blood Potassium 4.0 Urine Color Urine Clarity Urine pH Ur Specific [place] Urine Protein Urine Glucose (UA) Urine Ketones Urine Blood Urine Nitrate Urine Bilirubin Urine Urobilinogen Ur Leukocyte Esterase Urine WBC (Auto) Urine RBC (Auto) Ur Squamous Epith Cells Urine Bacteria Stool Occult Blood Urine Opiates Screen Urine Methadone Screen Ur Barbiturates Screen Ur Phencyclidine Scrn Ur Amphetamines Screen U Benzodiazepines Scrn U Oth Cocaine Metabols U Cannabinoids Screen Alcohol, Quantitative Blood Type Blood Type Confirm Antibody Screen 04/23/17 04/23/17 04/23/17 18:48 18:48 18:48 WBC RBC Hgb Hct MCV MCH MCHC RDW Plt Count MPV Neut % (Auto) Lymph % (Auto) Bertie % (Auto) Eos % (Auto) Baso % (Auto) Neut # Lymph # Bertie # Eos # Baso # Retic Count PT INR APTT pO2 VBG pH VBG pCO2 VBG HCO3 VBG Total CO2 VBG O2 Sat (Calc) VBG Base Excess VBG Potassium Glucose Lactate Sodium Cancelled Potassium Cancelled Chloride Cancelled Carbon Dioxide Cancelled Anion Gap Cancelled BUN Cancelled Creatinine Est GFR ( Amer) Cancelled Est GFR (Non-Af Amer) Cancelled POC Glucose (mg/dL) Random Glucose Cancelled Hemoglobin A1c 5.7 Lactic Acid Calcium Cancelled % Saturation 54 Ferritin 107.0 Total Bilirubin Cancelled AST Cancelled ALT Cancelled Alkaline Phosphatase Cancelled Total Protein Cancelled Albumin Cancelled Globulin Cancelled Albumin/Globulin Ratio Cancelled Triglycerides Cancelled Cholesterol Cancelled LDL Cholesterol Direct Cancelled HDL Cholesterol Cancelled Lipase Folate 15.0 Procalcitonin Venous Blood Potassium Urine Color Urine Clarity Urine pH Ur Specific [place] Urine Protein Urine Glucose (UA) Urine Ketones Urine Blood Urine Nitrate Urine Bilirubin Urine Urobilinogen Ur Leukocyte Esterase Urine WBC (Auto) Urine RBC (Auto) Ur Squamous Epith Cells Urine Bacteria Stool Occult Blood Urine Opiates Screen Urine Methadone Screen Ur Barbiturates Screen Ur Phencyclidine Scrn Ur Amphetamines Screen U Benzodiazepines Scrn U Oth Cocaine Metabols U Cannabinoids Screen Alcohol, Quantitative Blood Type Blood Type Confirm Antibody Screen 04/23/17 04/23/17 04/24/17 18:48 18:48 06:14 WBC RBC Hgb Hct MCV MCH MCHC RDW Plt Count MPV Neut % (Auto) Lymph % (Auto) Bertie % (Auto) Eos % (Auto) Baso % (Auto) Neut # Lymph # Bertie # Eos # Baso # Retic Count PT INR APTT pO2 VBG pH VBG pCO2 VBG HCO3 VBG Total CO2 VBG O2 Sat (Calc) VBG Base Excess VBG Potassium Glucose Lactate Sodium Potassium Chloride Carbon Dioxide Anion Gap BUN Creatinine Est GFR ( Amer) Est GFR (Non-Af Amer) POC Glucose (mg/dL) 96 Random Glucose Hemoglobin A1c Lactic Acid 1.3 Calcium % Saturation Ferritin Total Bilirubin AST ALT Alkaline Phosphatase Total Protein Albumin Globulin Albumin/Globulin Ratio Triglycerides Cholesterol LDL Cholesterol Direct HDL Cholesterol Lipase Folate Procalcitonin 0.06 L Venous Blood Potassium Urine Color Urine Clarity Urine pH Ur Specific [place] Urine Protein Urine Glucose (UA) Urine Ketones Urine Blood Urine Nitrate Urine Bilirubin Urine Urobilinogen Ur Leukocyte Esterase Urine WBC (Auto) Urine RBC (Auto) Ur Squamous Epith Cells Urine Bacteria Stool Occult Blood Urine Opiates Screen Urine Methadone Screen Ur Barbiturates Screen Ur Phencyclidine Scrn Ur Amphetamines Screen U Benzodiazepines Scrn U Oth Cocaine Metabols U Cannabinoids Screen Alcohol, Quantitative Blood Type Blood Type Confirm Antibody Screen 04/24/17 06:33 WBC 11.2 H RBC 2.49 L Hgb 7.5 L Hct 22.0 L MCV 88.2 MCH 30.0 MCHC 34.0 RDW 13.9 Plt Count 211 MPV 7.0 L Neut % (Auto) 64.3 Lymph % (Auto) 28.9 Bertie % (Auto) 6.3 Eos % (Auto) 0.1 Baso % (Auto) 0.4 Neut # 7.2 H Lymph # 3.2 Bertie # 0.7 Eos # 0.0 Baso # 0.0 Retic Count PT INR APTT pO2 VBG pH VBG pCO2 VBG HCO3 VBG Total CO2 VBG O2 Sat (Calc) VBG Base Excess VBG Potassium Glucose Lactate Sodium Potassium Chloride Carbon Dioxide Anion Gap BUN Creatinine Est GFR ( Amer) Est GFR (Non-Af Amer) POC Glucose (mg/dL) Random Glucose Hemoglobin A1c Lactic Acid Calcium % Saturation Ferritin Total Bilirubin AST ALT Alkaline Phosphatase Total Protein Albumin Globulin Albumin/Globulin Ratio Triglycerides Cholesterol LDL Cholesterol Direct HDL Cholesterol Lipase Folate Procalcitonin Venous Blood Potassium Urine Color Urine Clarity Urine pH Ur Specific [place] Urine Protein Urine Glucose (UA) Urine Ketones Urine Blood Urine Nitrate Urine Bilirubin Urine Urobilinogen Ur Leukocyte Esterase Urine WBC (Auto) Urine RBC (Auto) Ur Squamous Epith Cells Urine Bacteria Stool Occult Blood Urine Opiates Screen Urine Methadone Screen Ur Barbiturates Screen Ur Phencyclidine Scrn Ur Amphetamines Screen U Benzodiazepines Scrn U Oth Cocaine Metabols U Cannabinoids Screen Alcohol, Quantitative Blood Type Blood Type Confirm Antibody Screen EKG/Cardiology Studies: Cardiology / EKG Studies 04/23/17 11:07 ELECTROCARDIOGRAM Stat Comment: Mode Of Transportation: BED Reason For Exam: GI Bleeding 04/23/17 15:50 ELECTROCARDIOGRAM Stat Comment: Mode Of Transportation: Reason For Exam: gi bleed Review of Systems - Review of Systems All systems: reviewed and no additional remarkable complaints except (as per HPI ) Critical Care Progress Note - Nutrition Nutrition: Nutrition Category Date Time Status NPO Diet [DIET] Diets 04/24/17 Breakfast Active Assessment/Plan - Assessment and Plan (Free Text) Assessment: 71M with PMH of schizophrenia who presents with acute GI bleed and resulting anemia Plan: Neuro * neurologically in tact * alert * Tox screen negative * Head CT: No acute abnormalities * Neurontin 100 mg PO QD Psych - history of schizophrenia * Pydarlene consulted (Dr. Barahona) - recs appreciated * one-to-one monitoring * continue home meds (zyprexa 20 mg PO QD) Cardio - tachycardia and hypotension on admission possibly 2/2 hypovolemia * tachycardia resolved but still hypotensive * CT Chest/Abdomen/Pelvis: There are coronary artery calcifications. Ascending aorta is mildly dilated 4.17 m in diameter. There are multiple small calcified mediastinal and left hilar nodes. Respiratory - history of emphysema * Saturating well on room air * VB.38/58/33/21 * CT chest/abdomen/pelvis: There are bilateral paraseptal emphysematous with multiple blebs and bulla. There are additional centrilobular emphysematous changes in the upper lobes. There are panlobular emphysematous changes at the lung bases. There is nodular pleural scarring at the lung apices right greater than left.. There are multiple partially calcified pulmonary nodules. There is a 13 x 14 mm are shortly calcified right middle lobe nodule. There is a 6 x 6 mm partially calcified right lower lobe nodule. There is a 12 x 18 mm partially calcified left lower lobe nodule. There is a 10 x 13 mm partially calcified left lower lobe nodule. There are additional small partially calcified and noncalcified nodules. There is no lobar or segmental consolidation. There are no effusions. * continue home med (Singulair 10 mg PO QD) Electrolytes, Fluids, Nutrition * Called lab for pending CMP - will follow up with repeat * Fluids: NS @ 250 cc/h * Nutrition: NPO for GI bleed GI - acute GI bleed * Dr. Mercado consulted - recs appreciated * AST/ALT: 38/25 * TBili: 0.4 * Lipase: 104 * FOBT + * Unsure if ever had a colonoscopy * CT chest/abdomen/pelvis: spleen and liver granulomas, large bilateral renal cysts, atrophic pancreas, small hiatal hernia, non obstructing inguinal hernias , enlarged prostate Heme/Onc - anemia likely 2/2 acute GI bleed * H&H: 7.5/ - will transfuse 2U * Transfused 3U pRBCs 04/23/17 * Plts: 211 * PT/PTT/INR: 13.8/23/1.2 (on 04/23/17) * Ferritin: 107 * %Saturation: 54 * Folate: 15 ID * Afebrile * WBC: 11.2 * Lactate: 3.7, 1.7, 1.3 * Procal 0.06 Endocrine - history of DM * Monitor blood glucose * HbA1c: 5.7 * Hold home med (januvia 100 mg PO QD) per primary - BPH * UA: blood 1+, RBCs 6 * continue home med Flomax 0.4 mg PO QD Prophylaxis * GI: Protonix 40 mg IV QD * DVT: c/i due to GI bleed <Jose Rafael Dooley S - Last Filed: 04/24/17 17:31> CCU Objective - Vital Signs / Intake & Output Vital Signs (Last 4 hours): Vital Signs Temp Pulse Resp BP Pulse Ox 04/24/17 17:00 68 20 95/52 L 100 04/24/17 16:00 97.8 F 64 21 90/54 L 100 04/24/17 15:00 98 F 63 20 87/48 L 100 04/24/17 14:24 98.2 F 74 20 100/54 L 04/24/17 14:10 98 F 72 21 90/54 L 04/24/17 14:09 98 F 69 20 90/54 L 04/24/17 14:00 64 20 93/53 L 100 Intake and Output (Last 8hrs): Intake & Output 04/24/17 04/24/17 04/24/17 06:59 14:59 22:59 Intake Total 0 675 0 Output Total 750 Balance -750 675 0 Intake: Intake, IV Amount 250 Right Forearm 250 Oral 0 0 0 Blood Product 325 Red Blood Cells Cpd As1 325 Lr Unit [id number] Red Blood Cells Cpd As1 0 Lr Unit [id number] Other 100 Red Blood Cells Cpd As1 100 Lr Unit [id number] Output: Urine 750 Urethral (Tran) 750 - Medications Active Medications: Active Medications Generic Name Dose Route Start Last Admin Trade Name Freq PRN Reason Stop Dose Admin Gabapentin 100 mg 04/25/17 10:00 Neurontin PO DAILY [facility] Octreotide Acetate 1,250 mcg/ 252.5 mls @ 10.1 mls/hr 04/24/17 17:00 17:12 Sodium Chloride IV 10.1 mls/hr .Q24H DARLENE Administration Protocol 50 MCG/HR Montelukast Sodium 10 mg 04/25/17 10:00 Singulair PO DAILY [facility] Pantoprazole Sodium 40 mg 04/25/17 10:00 Protonix Inj IVP DAILY [facility] Pneumococcal Polyvalent Vaccine 0.5 ml 04/26/17 10:00 Pneumovax 23 Vaccine IM 04/26/17 10:01 .ONCE ONE Polyethylene Glycol/Electrolytes 2,000 ml 04/24/17 18:00 04/24/17 17:15 Golytely PO 04/24/17 18:01 2,000 ml ONCE ONE Administration Polyethylene Glycol/Electrolytes 2,000 ml 04/25/17 06:00 Golytely PO 04/25/17 06:01 ONCE ONE Sitagliptin Phosphate 100 mg 04/25/17 10:00 Januvia PO DAILY [facility] Tamsulosin HCl 0.4 mg 04/25/17 10:00 Flomax PO DAILY DARLENE - Patient Studies Lab Studies: Microbiology Studies 04/23/17 11:41 Urine Culture - Final Urine,Tran No Growth (<1,000 CFU/ML) Lab Studies 04/24/17 04/24/17 04/23/17 Range/Units 06:33 06:14 18:48 WBC 11.2 H (4.8-10.8) K/uL RBC 2.49 L (4.40-5.90) Mil/uL Hgb 7.5 L (12.0-18.0) g/dL Hct 22.0 L (35.0-51.0) % MCV 88.2 (80.0-94.0) fL MCH 30.0 (27.0-31.0) pg MCHC 34.0 (33.0-37.0) g/dL RDW 13.9 (11.5-14.5) % Plt Count 211 (130-400) K/uL MPV 7.0 L (7.2-11.7) fL Neut % (Auto) 64.3 (50.0-75.0) % Lymph % (Auto) 28.9 (20.0-40.0) % Bertie % (Auto) 6.3 (0.0-10.0) % Eos % (Auto) 0.1 (0.0-4.0) % Baso % (Auto) 0.4 (0.0-2.0) % Neut # 7.2 H (1.8-7.0) K/uL Lymph # 3.2 (1.0-4.3) K/uL Bertie # 0.7 (0.0-0.8) K/uL Eos # 0.0 (0.0-0.7) K/uL Baso # 0.0 (0.0-0.2) K/uL Retic Count (0.5-1.5) % Sodium (132-148) mmol/L Potassium (3.6-5.2) mmol/L Chloride (98-107) mmol/L Carbon Dioxide (22-30) mmol/L Anion Gap (10-20) BUN (9-20) mg/dL Creatinine (0.8-1.5) mg/dL Est GFR ( Amer) Est GFR (Non-Af Amer) POC Glucose (mg/dL) 96 (65-110) mg/dL Random Glucose (75-110) mg/dL Hemoglobin A1c (4.2-6.5) % Lactic Acid 1.3 (0.7-2.1) mmol/L Calcium (8.6-10.4) mg/dl % Saturation (20-55) Ferritin ng/mL Total Bilirubin (0.2-1.3) mg/dL AST (17-59) U/L ALT (21-72) U/L Alkaline Phosphatase (38-126) U/L Total Protein (6.3-8.3) g/dL Albumin (3.5-5.0) g/dL Globulin (2.2-3.9) gm/dL Albumin/Globulin Ratio (1.0-2.1) Triglycerides (0-149) mg/dL Cholesterol (0-199) mg/dL LDL Cholesterol Direct (0-129) mg/dL HDL Cholesterol (30-70) mg/dL Folate ng/mL Procalcitonin (0.19-0.49) NG/ML Blood Type Blood Type Confirm Antibody Screen 04/23/17 04/23/17 04/23/17 Range/Units 18:48 18:48 18:48 WBC (4.8-10.8) K/uL RBC (4.40-5.90) Mil/uL Hgb (12.0-18.0) g/dL Hct (35.0-51.0) % MCV (80.0-94.0) fL MCH (27.0-31.0) pg MCHC (33.0-37.0) g/dL RDW (11.5-14.5) % Plt Count (130-400) K/uL MPV (7.2-11.7) fL Neut % (Auto) (50.0-75.0) % Lymph % (Auto) (20.0-40.0) % Bertie % (Auto) (0.0-10.0) % Eos % (Auto) (0.0-4.0) % Baso % (Auto) (0.0-2.0) % Neut # (1.8-7.0) K/uL Lymph # (1.0-4.3) K/uL Bertie # (0.0-0.8) K/uL Eos # (0.0-0.7) K/uL Baso # (0.0-0.2) K/uL Retic Count (0.5-1.5) % Sodium (132-148) mmol/L Potassium (3.6-5.2) mmol/L Chloride (98-107) mmol/L Carbon Dioxide (22-30) mmol/L Anion Gap (10-20) BUN (9-20) mg/dL Creatinine (0.8-1.5) mg/dL Est GFR ( Amer) Est GFR (Non-Af Amer) POC Glucose (mg/dL) (65-110) mg/dL Random Glucose (75-110) mg/dL Hemoglobin A1c 5.7 (4.2-6.5) % Lactic Acid (0.7-2.1) mmol/L Calcium (8.6-10.4) mg/dl % Saturation 54 (20-55) Ferritin ng/mL Total Bilirubin (0.2-1.3) mg/dL AST (17-59) U/L ALT (21-72) U/L Alkaline Phosphatase (38-126) U/L Total Protein (6.3-8.3) g/dL Albumin (3.5-5.0) g/dL Globulin (2.2-3.9) gm/dL Albumin/Globulin Ratio (1.0-2.1) Triglycerides (0-149) mg/dL Cholesterol (0-199) mg/dL LDL Cholesterol Direct (0-129) mg/dL HDL Cholesterol (30-70) mg/dL Folate ng/mL Procalcitonin 0.06 L (0.19-0.49) NG/ML Blood Type Blood Type Confirm Antibody Screen 04/23/17 04/23/17 04/23/17 Range/Units 18:48 18:48 18:00 WBC 11.1 H (4.8-10.8) K/uL RBC 2.15 L (4.40-5.90) Mil/uL Hgb 6.3 L* (12.0-18.0) g/dL Hct 19.1 L (35.0-51.0) % MCV 88.8 D (80.0-94.0) fL MCH 29.4 (27.0-31.0) pg MCHC 33.1 (33.0-37.0) g/dL RDW 13.6 (11.5-14.5) % Plt Count 214 D (130-400) K/uL MPV 7.2 (7.2-11.7) fL Neut % (Auto) (50.0-75.0) % Lymph % (Auto) 27.3 (20.0-40.0) % Bertie % (Auto) 5.8 (0.0-10.0) % Eos % (Auto) 0.3 (0.0-4.0) % Baso % (Auto) 0.6 (0.0-2.0) % Neut # (1.8-7.0) K/uL Lymph # 3.0 (1.0-4.3) K/uL Bertie # 0.6 (0.0-0.8) K/uL Eos # 0.0 (0.0-0.7) K/uL Baso # 0.1 (0.0-0.2) K/uL Retic Count 2.2 H (0.5-1.5) % Sodium Cancelled 133 (132-148) mmol/L Potassium Cancelled 4.0 (3.6-5.2) mmol/L Chloride Cancelled 106 (98-107) mmol/L Carbon Dioxide Cancelled 21 L (22-30) mmol/L Anion Gap Cancelled 10 (10-20) BUN Cancelled 38 H (9-20) mg/dL Creatinine 0.7 L (0.8-1.5) mg/dL Est GFR ( Amer) Cancelled > 60 Est GFR (Non-Af Amer) Cancelled > 60 POC Glucose (mg/dL) (65-110) mg/dL Random Glucose Cancelled 101 (75-110) mg/dL Hemoglobin A1c (4.2-6.5) % Lactic Acid (0.7-2.1) mmol/L Calcium Cancelled 7.0 L (8.6-10.4) mg/dl % Saturation (20-55) Ferritin 107.0 ng/mL Total Bilirubin Cancelled 0.9 (0.2-1.3) mg/dL AST Cancelled 22 (17-59) U/L ALT Cancelled 29 (21-72) U/L Alkaline Phosphatase Cancelled 36 L (38-126) U/L Total Protein Cancelled 5.3 L (6.3-8.3) g/dL Albumin Cancelled 2.5 L D (3.5-5.0) g/dL Globulin Cancelled 2.7 (2.2-3.9) gm/dL Albumin/Globulin Ratio Cancelled 0.9 L (1.0-2.1) Triglycerides Cancelled 218 H (0-149) mg/dL Cholesterol Cancelled 93 (0-199) mg/dL LDL Cholesterol Direct Cancelled 52 (0-129) mg/dL HDL Cholesterol Cancelled 14 L (30-70) mg/dL Folate 15.0 ng/mL Procalcitonin (0.19-0.49) NG/ML Blood Type Blood Type Confirm Antibody Screen 04/23/17 Range/Units 11:30 WBC (4.8-10.8) K/uL RBC (4.40-5.90) Mil/uL Hgb (12.0-18.0) g/dL Hct (35.0-51.0) % MCV (80.0-94.0) fL MCH (27.0-31.0) pg MCHC (33.0-37.0) g/dL RDW (11.5-14.5) % Plt Count (130-400) K/uL MPV (7.2-11.7) fL Neut % (Auto) (50.0-75.0) % Lymph % (Auto) (20.0-40.0) % Bertie % (Auto) (0.0-10.0) % Eos % (Auto) (0.0-4.0) % Baso % (Auto) (0.0-2.0) % Neut # (1.8-7.0) K/uL Lymph # (1.0-4.3) K/uL Bertie # (0.0-0.8) K/uL Eos # (0.0-0.7) K/uL Baso # (0.0-0.2) K/uL Retic Count (0.5-1.5) % Sodium (132-148) mmol/L Potassium (3.6-5.2) mmol/L Chloride (98-107) mmol/L Carbon Dioxide (22-30) mmol/L Anion Gap (10-20) BUN (9-20) mg/dL Creatinine (0.8-1.5) mg/dL Est GFR ( Amer) Est GFR (Non-Af Amer) POC Glucose (mg/dL) (65-110) mg/dL Random Glucose (75-110) mg/dL Hemoglobin A1c (4.2-6.5) % Lactic Acid (0.7-2.1) mmol/L Calcium (8.6-10.4) mg/dl % Saturation (20-55) Ferritin ng/mL Total Bilirubin (0.2-1.3) mg/dL AST (17-59) U/L ALT (21-72) U/L Alkaline Phosphatase (38-126) U/L Total Protein (6.3-8.3) g/dL Albumin (3.5-5.0) g/dL Globulin (2.2-3.9) gm/dL Albumin/Globulin Ratio (1.0-2.1) Triglycerides (0-149) mg/dL Cholesterol (0-199) mg/dL LDL Cholesterol Direct (0-129) mg/dL HDL Cholesterol (30-70) mg/dL Folate ng/mL Procalcitonin (0.19-0.49) NG/ML Blood Type A POSITIVE Blood Type Confirm A POSITIVE Antibody Screen Negative Laboratory Results - last 24 hr 04/23/17 04/23/17 04/23/17 11:30 18:00 18:48 WBC 11.1 H RBC 2.15 L Hgb 6.3 L* Hct 19.1 L MCV 88.8 D MCH 29.4 MCHC 33.1 RDW 13.6 Plt Count 214 D MPV 7.2 Neut % (Auto) Lymph % (Auto) 27.3 Bertie % (Auto) 5.8 Eos % (Auto) 0.3 Baso % (Auto) 0.6 Neut # Lymph # 3.0 Bertie # 0.6 Eos # 0.0 Baso # 0.1 Retic Count 2.2 H Sodium 133 Potassium 4.0 Chloride 106 Carbon Dioxide 21 L Anion Gap 10 BUN 38 H Creatinine 0.7 L Est GFR ( Amer) > 60 Est GFR (Non-Af Amer) > 60 POC Glucose (mg/dL) Random Glucose 101 Hemoglobin A1c Lactic Acid Calcium 7.0 L % Saturation Ferritin Total Bilirubin 0.9 AST 22 ALT 29 Alkaline Phosphatase 36 L Total Protein 5.3 L Albumin 2.5 L D Globulin 2.7 Albumin/Globulin Ratio 0.9 L Triglycerides 218 H Cholesterol 93 LDL Cholesterol Direct 52 HDL Cholesterol 14 L Folate Procalcitonin Blood Type A POSITIVE Blood Type Confirm A POSITIVE Antibody Screen Negative 04/23/17 04/23/17 04/23/17 18:48 18:48 18:48 WBC RBC Hgb Hct MCV MCH MCHC RDW Plt Count MPV Neut % (Auto) Lymph % (Auto) Bertie % (Auto) Eos % (Auto) Baso % (Auto) Neut # Lymph # Bertie # Eos # Baso # Retic Count Sodium Cancelled Potassium Cancelled Chloride Cancelled Carbon Dioxide Cancelled Anion Gap Cancelled BUN Cancelled Creatinine Est GFR ( Amer) Cancelled Est GFR (Non-Af Amer) Cancelled POC Glucose (mg/dL) Random Glucose Cancelled Hemoglobin A1c 5.7 Lactic Acid Calcium Cancelled % Saturation 54 Ferritin 107.0 Total Bilirubin Cancelled AST Cancelled ALT Cancelled Alkaline Phosphatase Cancelled Total Protein Cancelled Albumin Cancelled Globulin Cancelled Albumin/Globulin Ratio Cancelled Triglycerides Cancelled Cholesterol Cancelled LDL Cholesterol Direct Cancelled HDL Cholesterol Cancelled Folate 15.0 Procalcitonin Blood Type Blood Type Confirm Antibody Screen 04/23/17 04/23/17 04/24/17 18:48 18:48 06:14 WBC RBC Hgb Hct MCV MCH MCHC RDW Plt Count MPV Neut % (Auto) Lymph % (Auto) Bertie % (Auto) Eos % (Auto) Baso % (Auto) Neut # Lymph # Bertie # Eos # Baso # Retic Count Sodium Potassium Chloride Carbon Dioxide Anion Gap BUN Creatinine Est GFR ( Amer) Est GFR (Non-Af Amer) POC Glucose (mg/dL) 96 Random Glucose Hemoglobin A1c Lactic Acid 1.3 Calcium % Saturation Ferritin Total Bilirubin AST ALT Alkaline Phosphatase Total Protein Albumin Globulin Albumin/Globulin Ratio Triglycerides Cholesterol LDL Cholesterol Direct HDL Cholesterol Folate Procalcitonin 0.06 L Blood Type Blood Type Confirm Antibody Screen 04/24/17 06:33 WBC 11.2 H RBC 2.49 L Hgb 7.5 L Hct 22.0 L MCV 88.2 MCH 30.0 MCHC 34.0 RDW 13.9 Plt Count 211 MPV 7.0 L Neut % (Auto) 64.3 Lymph % (Auto) 28.9 Bertie % (Auto) 6.3 Eos % (Auto) 0.1 Baso % (Auto) 0.4 Neut # 7.2 H Lymph # 3.2 Bertie # 0.7 Eos # 0.0 Baso # 0.0 Retic Count Sodium Potassium Chloride Carbon Dioxide Anion Gap BUN Creatinine Est GFR ( Amer) Est GFR (Non-Af Amer) POC Glucose (mg/dL) Random Glucose Hemoglobin A1c Lactic Acid Calcium % Saturation Ferritin Total Bilirubin AST ALT Alkaline Phosphatase Total Protein Albumin Globulin Albumin/Globulin Ratio Triglycerides Cholesterol LDL Cholesterol Direct HDL Cholesterol Folate Procalcitonin Blood Type Blood Type Confirm Antibody Screen Critical Care Progress Note - Nutrition Nutrition: Nutrition Category Date Time Status NPO Diet [DIET] Diets 04/24/17 Breakfast Active Attending/Attestation - Attestation I have personally seen and examined this patient.: Yes I have fully participated in the care of the patient.: Yes I have reviewed all pertinent clinical information: Yes Notes (Text): 04/24/17 17:30 patient seen and examined 71-year-old male transferred to ICU for hypotension, anemia and GI bleed. Status post transfusion of packed RBCs GI evaluation Protonix drip Transfuse packed RBCs as needed Follow-up CBC Nutritional support
--- NOTE | 2017-04-24 13:41 | PCM.PSYCH ---
Initial Psychiatric Evaluation - Initial Psychiatric Evaluation Type of Admission: Voluntary History of Present Illness and Precipitating Events: Consultation ordered by Medicine team for schizophrenia. Patient is a 71 year old male with past medical history of schizophrenia, who presents to the hospital for a rectal bleed. 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 Patient reports he has a history of schizophrenia for which he takes medication , however, he is unsure of the names of the medications. Patient is oriented to person, place, and time, however, has disorganized speech, thought blocking, and is a poor historian. Patient reports drinking wine, but denies other alcohol use, drug use, and admits to smoking 3 cigarettes daily. Clarissa, patient' s brother, was contacted via phone, who says this is patient's baseline behavior. As per the brother, the patient talks to himself frequently at home. As per the brother, patient takes several medications at home. PMHx: schizophrenia FamHx: as per brother, no psychiatric or substance abuse disorders Medications: Olanzepine 20mg, Januvia 100mg, Ranitidine 300mg, Gabapentin 100mg , Tamsulosin, Montelukast, Finasteride Current Medications: Active Medications Generic Name Dose Route Start Last Admin Trade Name Pilo PRN Reason Stop Dose Admin Gabapentin 100 mg 04/25/17 10:00 Neurontin PO DAILY PENDING SALE TO [facility] Montelukast Sodium 10 mg 04/25/17 10:00 Singulair PO DAILY [facility] Olanzapine 20 mg 04/25/17 10:00 Zyprexa PO DAILY [facility] Pantoprazole Sodium 40 mg 04/25/17 10:00 Protonix Inj IVP DAILY [facility] TO [facility] Pneumococcal Polyvalent Vaccine 0.5 ml 04/26/17 10:00 Pneumovax 23 Vaccine IM 04/26/17 10:01 .ONCE ONE Sitagliptin Phosphate 100 mg 04/25/17 10:00 Januvia PO DAILY [facility] Tamsulosin HCl 0.4 mg 04/25/17 10:00 Flomax PO DAILY [facility] Past Psychiatric History - Past Psychiatric History Pertinent Medical Hx (Current Medical&Sleep Prob, Allergies): Allergies Allergy/AdvReac Type Severity Reaction Status Date / Time No Known Allergies Allergy Unverified 04/23/17 11:07 Gabapentin [Neurontin] 100 mg PO DAILY 04/23/17 Montelukast Sodium [Singulair] 10 mg PO DAILY 04/23/17 Olanzapine [Zyprexa] 20 mg PO DAILY 04/23/17 Ranitidine HCl [Zantac 300] 300 mg PO DAILY 04/23/17 SITagliptin [Januvia] 100 mg PO DAILY 04/23/17 Tamsulosin [Flomax] 0.4 mg PO DAILY 04/23/17 Review of Systems - Review of Systems Systems not reviewed;Unavailable: Other (Disorganized speech, thought blocking) - Neurological Neurological: UNREMARKABLE - Psychiatric Psychiatric: UNREMARKABLE Mental Status Examination - Personal Presentation Personal Presentation: Looks older than stated age - Affect Affect: Flat - Motor Activity Motor Activity: Calm - Reliability in Providing Information Reliability in Providing Information: Poor, due to alteration in thoughts - Speech Speech: Disorganized - Mood Mood: Neutral - Formal Thought Process Additional comments: Thought blocking - Cognitive Functions Orientation: Person, Place, Situation, Time Sensorium: Alert Attention/Concentration: Attentive Estimate of Intelligence: Below average Judgement: Imparied, as evidence by: Lack of insight into illness Memory: Recent imparied as evidence by:Inability to complete 3/3 object recall - Risk Risk: Diminished functioning DSM 5 DX - DSM 5 DSM 5 Diagnosis: Schizophrenia - Recommended/Plan of Treatment Treatment Recommendations and Plan of Treatment: Continue home medication- Olanzepine 20mg PO Individual therapydaily, Psychoeducationand supportdaily Encourage compliance with meds and after care 32 min - Smoking Cessation Smoking Cessation Initiated: No
--- NOTE | 2017-04-24 15:03 | CARD ---
APPROVED REPORT EKG Measurement Heart [id number] <Conclusion> Sinus tachycardia with short [place] Otherwise normal ECG
--- NOTE | 2017-04-24 15:48 | PN ---
DATE: SUBJECTIVE: The patient is seen and examined at bedside. Events from last night and this morning noted. The patient denies any new complaints. Had 1 black-colored stool this morning. Denies any headache, dizziness. Denies any chest pain, shortness of breath or wheezing. PHYSICAL EXAMINATION: GENERAL: Elderly male, lying in bed, in no acute distress. VITAL SIGNS: Blood pressure 90/52, pulse 68, respirations 20, temperature 98 degrees Fahrenheit. HEENT: Pupils equal, round, reacting to light and accommodation. Extraocular muscles intact. No icterus. Positive pallor. No oral thrush. No pharyngeal congestion. NECK: Supple. No JVD. LUNGS: Bilateral vesicular breath sounds. No wheezing. No rhonchi. CARDIOVASCULAR SYSTEM: S1 and S2 present. Regular. ABDOMEN: Soft, nontender. Bowel sounds present. No guarding. No rigidity. No rebound tenderness noted. CENTRAL NERVOUS SYSTEM: Alert, awake, oriented x1. No focal deficits. EXTREMITIES: No edema. Palpable peripheral pulses. LABORATORY DATA: Labs from this morning, WBC 11.2, hemoglobin 7.5 after 3 units of PRBC transfusion, hematocrit 22, platelets 211. Sodium 133, potassium 4.0, chloride 106, bicarb 21, BUN 38, creatinine 0.7, glucose 101, hemoglobin A1c 5.7, lactic acid 1.3, iron saturation 54, ferritin 107, AST 22, ALT 29, alkaline phosphatase 36, total protein 5.3, albumin 2.5, triglycerides 218, cholesterol 93, LDL 52, HDL 14. Head CT negative. CT chest, abdomen and pelvis consistent with prior granulomatous disease with multiple partially calcified nodules bilaterally consistent with granulomas. Occasional small noncalcified nodules. Possibly noncalcified granulomas, emphysema, atherosclerotic disease with mildly dilated ascending aorta, bilateral renal cysts, bilateral nonobstructing inguinal hernias, probable constipation. MEDICATIONS: Include Neurontin 100 mg p.o. daily, Singulair 10 mg daily, Protonix 40 mg daily, Januvia 100 mg p.o. daily, Flomax 0.4 mg daily. ASSESSMENT AND PLAN: Elderly male with history of schizophrenia, diabetes mellitus, benign prostatic hypertrophy, neuropathy, chronic obstructive pulmonary disease, admitted for gastrointestinal bleeding, upper gastrointestinal versus lower gastrointestinal bleeding, acute blood loss anemia, hypotension secondary to hypovolemia and acute blood loss. The patient received 3 units of packed red blood cells with still low hemoglobin and hematocrit at 7.5. We will transfuse 2 more units. The patient remains hypotensive. Fluid bolus is given this morning. The patient is being transferred to Intensive Care Unit for close monitoring. Gastroenterology evaluation appreciated for possible colonoscopy. We will continue with Protonix. Discussed with the patient's brother. Repeat labs in the a.m. Ana Song MD
[2017-04-24] MEDS ORDERED: Octreotide 1,250 MCG in Dextrose 5% In Water 250 ML IV SCH (16:45)
--- NOTE | 2017-04-24 16:49 | CP.PCM.PN ---
Subjective - Date & Time of Evaluation Date of Evaluation: 04/24/17 Time of Evaluation: 16:48 - Subjective Subjective: Mental status is unchanged. He denies having nausea, vomiting, abdominal pain, and further rectal bleeding. Objective - Vital Signs/Intake and Output Vital Signs (last 24 hours): Temp Pulse Resp BP Pulse Ox 97.8 F 64 21 90/54 L 100 04/24/17 16:00 04/24/17 16:00 04/24/17 16:00 04/24/17 16:00 04/24/17 16:00 Intake and Output: 04/24/17 04/24/17 06:59 18:59 Intake Total 0 675 Output Total 750 Balance -750 675 - Medications Medications: Current Medications Gabapentin (Neurontin) 100 mg PO DAILY [facility] Octreotide Acetate 1,250 mcg/ (Dextrose) 252.5 mls @ 10.1 mls/hr IV .Q24H [facility]; 50 MCG/HR PRN Reason: Protocol Montelukast Sodium (Singulair) 10 mg PO DAILY [facility] Octreotide Acetate (Sandostatin) 50 mcg IVP STAT STA Stop: 04/24/17 16:44 Pantoprazole Sodium (Protonix Inj) 40 mg IVP DAILY [facility] Pneumococcal Polyvalent Vaccine (Pneumovax 23 Vaccine) 0.5 ml IM .ONCE ONE Stop: 04/26/17 10:01 Sitagliptin Phosphate (Januvia) 100 mg PO DAILY [facility] Tamsulosin HCl (Flomax) 0.4 mg PO DAILY [facility] - Labs Labs: 04/24/17 06:33 04/23/17 18:48 PT 13.8 SECONDS (9.7-12.2) H 04/23/17 11:30 INR 1.2 04/23/17 11:30 APTT 23 SECONDS (21-34) 04/23/17 11:30 - Constitutional Appears: Chronically Ill - Head Exam Head Exam: ATRAUMATIC, NORMOCEPHALIC - Neck Exam Neck Exam: absent: Lymphadenopathy, Thyromegaly - Respiratory Exam Respiratory Exam: NORMAL BREATHING PATTERN. absent: Rales, Rhonchi, Wheezes - Cardiovascular Exam Cardiovascular Exam: REGULAR RHYTHM, +S1, +S2. absent: Gallop, Rubs, Murmur - GI/Abdominal Exam GI & Abdominal Exam: Soft, Normal Bowel Sounds. absent: Tenderness, Mass, Organomegaly - Rectal Exam Rectal Exam: Deferred - Extremities Exam Extremities Exam: absent: Calf Tenderness, Pedal Edema Assessment and Plan (1) Lower GI bleeding Assessment & Plan: Plan is for EGD and colonoscopy tomorrow. Status: Acute
[2017-04-24] MEDS ORDERED: Peg-Electrolyte Oral Soln 4L (Golytely) PO ONE (18:00)
[2017-04-24 18:37] LABS: MEAN CELL VOLUME 87.5 fL (80.0-94.0); MEAN CORPUSCULAR HEMOGLOBIN 28.9 pg (27.0-31.0); MEAN PLATELET VOLUME 7.3 fL (7.2-11.7); RBC 3.83 Mil/uL (4.40-5.90); RED CELL DISTRIBUTION WIDTH 14.9 % (11.5-14.5); WHITE BLOOD COUNT 12.2 K/uL (4.8-10.8)
[2017-04-24 18:52] LABS: HEMOGLOBIN 11.1 g/dL (12.0-18.0)
[2017-04-25] MEDS ORDERED: Peg-Electrolyte Oral Soln 4L (Golytely) PO ONE (06:00)
[2017-04-25 06:47] LABS: BASO % 0.4 % (0.0-2.0); EOS % 0.6 % (0.0-4.0); HEMOGLOBIN 10.3 g/dL (12.0-18.0); LYMPH # 1.9 K/uL (1.0-4.3); LYMPH % 22.1 % (20.0-40.0); MEAN CELL VOLUME 88.1 fL (80.0-94.0); MEAN PLATELET VOLUME 7.3 fL (7.2-11.7); MONO # 0.5 K/uL (0.0-0.8); MONO % 5.4 % (0.0-10.0); NEUT # 6.1 K/uL (1.8-7.0); NEUT % 71.5 % (50.0-75.0); RBC 3.45 Mil/uL (4.40-5.90); RED CELL DISTRIBUTION WIDTH 15.1 % (11.5-14.5); WHITE BLOOD COUNT 8.5 K/uL (4.8-10.8)
[2017-04-25 07:13] LABS: ALBUMIN 2.8 g/dL (3.5-5.0); ALT/SGPT 32 U/L (21-72); AST/SGOT 33 U/L (17-59); BLOOD UREA NITROGEN 24 mg/dL (9-20); CALCIUM 7.2 mg/dl (8.6-10.4); GFR AFRICAN-AMERICAN > 60; GFR NON-AFRICAN AMERICAN > 60; MAGNESIUM 1.9 mg/dL (1.6-2.3)
[2017-04-25] MEDS ORDERED: Pantoprazole 80 MG in Sodium Chloride 0.9% 100 ML IVPB SCH (08:30)
[2017-04-25] MEDS ORDERED: Lactated Ringer's 1,000 ML IV SCH (08:30)
--- NOTE | 2017-04-25 09:29 | CP.CCUPN ---
<Vera Yang - Last Filed: 04/25/17 09:26> CCU Subjective - Physician Review Subjective (Free Text): 04/25/17 09:26 Patient seen and examined at bedside. Patient resting comfortably in bed with no new complaints at this time other than some pain of his anterior lower ribs b /l. Patient's seems to just repeat whatever we say otherwise making ROS difficult to obtain. Patient has a 1-to-1 in the room with him. CCU Objective - Vital Signs / Intake & Output Vital Signs (Last 4 hours): Vital Signs Temp Pulse Resp BP Pulse Ox 04/25/17 09:00 48 L 8 L 98 04/25/17 08:25 47 L 11 L 109/61 98 04/25/17 08:02 49 L 10 L 106/59 L 04/25/17 08:00 97.4 F L 52 L 9 L 106/59 L 100 04/25/17 07:02 49 L 9 L 104/61 97 04/25/17 07:00 54 L 11 L 100 04/25/17 06:02 51 L 9 L 102/62 99 04/25/17 06:00 51 L 9 L 97 Intake and Output (Last 8hrs): Intake & Output 04/24/17 04/25/17 04/25/17 22:59 06:59 14:59 Intake Total 665 80 105 Output Total 750 750 150 Balance -85 -670 -45 Weight 118 lb Intake: Intake, IV Amount 40 80 105 Right Forearm 40 80 30 Right Forearm Y-Port 75 Oral 300 0 0 Blood Product 325 Red Blood Cells Cpd As1 325 Lr Unit [id number] Output: Urine 750 750 150 Urethral (Tran) 750 750 150 Other: # Bowel Movements 2 1 - Physical Exam Head: Positive for: Atraumatic, Normocephalic Pupils: Positive for: PERRL Extroacular Muscles: Positive for: EOMI Conjunctiva: Positive for: Normal Mouth: Positive for: Dry Respiratory/Chest: Positive for: Wheezes, Decreased Breath Sounds. Negative for : Respiratory Distress, Accessory Muscle Use, Rales Cardiovascular: Positive for: Regular Rate and Rhythm, Normal S1, S2 Abdomen: Positive for: Normal Bowel Sounds. Negative for: Tenderness, Distention Upper Extremity: Positive for: Normal Inspection Lower Extremity: Positive for: Normal Inspection Neurological: Positive for: GCS=15 Skin: Positive for: Warm, Dry, Normal Color. Negative for: Rashes Psychiatric: Positive for: Alert - Medications Active Medications: Active Medications Generic Name Dose Route Start Last Admin Trade Name Pilo PRN Reason Stop Dose Admin Gabapentin 100 mg 04/25/17 10:00 Neurontin PO DAILY [facility] Octreotide Acetate 1,250 mcg/ 252.5 mls @ 10.1 mls/hr 04/24/17 17:00 17:12 Sodium Chloride IV 10.1 mls/hr .Q24H [facility] Administration Protocol 50 MCG/HR Pantoprazole Sodium 80 mg/ 100 mls @ 10 mls/hr 04/25/17 08:30 Sodium Chloride IVPB .Q10H [facility] 8 MG/HR Lactated Ringer's 1,000 mls @ 75 mls/hr 04/25/17 08:30 04/25/17 08:50 Lactated Ringer's IV 75 mls/hr .[id number] [facility] Administration Montelukast Sodium 10 mg 04/25/17 10:00 Singulair PO DAILY [facility] Pneumococcal Polyvalent Vaccine 0.5 ml 04/26/17 10:00 Pneumovax 23 Vaccine IM 04/26/17 10:01 .ONCE ONE Sitagliptin Phosphate 100 mg 04/25/17 10:00 Januvia PO DAILY [facility] Tamsulosin HCl 0.4 mg 04/25/17 10:00 Flomax PO DAILY [facility] - Patient Studies Lab Studies: Microbiology Studies 04/23/17 12:00 Blood Culture - Preliminary Blood NO GROWTH AFTER 24 HOURS 04/23/17 12:30 Blood Culture - Preliminary Blood NO GROWTH AFTER 24 HOURS 04/23/17 11:41 Urine Culture - Final Urine,Tran No Growth (<1,000 CFU/ML) Lab Studies 04/25/17 04/25/17 04/24/17 Range/Units 06:36 06:36 23:30 WBC 8.5 (4.8-10.8) K/uL RBC 3.45 L (4.40-5.90) Mil/uL Hgb 10.3 L (12.0-18.0) g/dL Hct 30.4 L (35.0-51.0) % MCV 88.1 (80.0-94.0) fL MCH 30.0 (27.0-31.0) pg MCHC 34.0 (33.0-37.0) g/dL RDW 15.1 H (11.5-14.5) % Plt Count 219 (130-400) K/uL MPV 7.3 (7.2-11.7) fL Neut % (Auto) 71.5 (50.0-75.0) % Lymph % (Auto) 22.1 (20.0-40.0) % [place] % (Auto) 5.4 (0.0-10.0) % Eos % (Auto) 0.6 (0.0-4.0) % Baso % (Auto) 0.4 (0.0-2.0) % Neut # 6.1 (1.8-7.0) K/uL Lymph # 1.9 (1.0-4.3) K/uL [place] # 0.5 (0.0-0.8) K/uL Eos # 0.0 (0.0-0.7) K/uL Baso # 0.0 (0.0-0.2) K/uL Sodium 135 (132-148) mmol/L Potassium 3.8 (3.6-5.2) mmol/L Chloride 108 H (98-107) mmol/L Carbon Dioxide 24 (22-30) mmol/L Anion Gap 7 L (10-20) BUN 24 H (9-20) mg/dL Creatinine 0.7 L (0.8-1.5) mg/dL Est GFR ( Amer) > 60 Est GFR (Non-Af Amer) > 60 POC Glucose (mg/dL) 102 (65-110) mg/dL Random Glucose 113 H (75-110) mg/dL Calcium 7.2 L (8.6-10.4) mg/dl Phosphorus 3.3 (2.5-4.5) mg/dL Magnesium 1.9 (1.6-2.3) mg/dL Total Bilirubin 1.0 (0.2-1.3) mg/dL AST 33 (17-59) U/L ALT 32 (21-72) U/L Alkaline Phosphatase 44 (38-126) U/L Total Protein 5.7 L (6.3-8.3) g/dL Albumin 2.8 L (3.5-5.0) g/dL Globulin 2.9 (2.2-3.9) gm/dL Albumin/Globulin Ratio 1.0 (1.0-2.1) Blood Type Blood Type Confirm Antibody Screen 04/24/17 04/24/17 04/23/17 Range/Units 18:24 17:38 11:30 WBC 12.2 H (4.8-10.8) K/uL RBC 3.83 L (4.40-5.90) Mil/uL Hgb 11.1 L D (12.0-18.0) g/dL Hct 33.5 L (35.0-51.0) % MCV 87.5 (80.0-94.0) fL MCH 28.9 (27.0-31.0) pg MCHC 33.0 (33.0-37.0) g/dL RDW 14.9 H (11.5-14.5) % Plt Count 207 (130-400) K/uL MPV 7.3 (7.2-11.7) fL Neut % (Auto) (50.0-75.0) % Lymph % (Auto) (20.0-40.0) % [place] % (Auto) (0.0-10.0) % Eos % (Auto) (0.0-4.0) % Baso % (Auto) (0.0-2.0) % Neut # (1.8-7.0) K/uL Lymph # (1.0-4.3) K/uL [place] # (0.0-0.8) K/uL Eos # (0.0-0.7) K/uL Baso # (0.0-0.2) K/uL Sodium (132-148) mmol/L Potassium (3.6-5.2) mmol/L Chloride (98-107) mmol/L Carbon Dioxide (22-30) mmol/L Anion Gap (10-20) BUN (9-20) mg/dL Creatinine (0.8-1.5) mg/dL Est GFR ( Amer) Est GFR (Non-Af Amer) POC Glucose (mg/dL) 89 (65-110) mg/dL Random Glucose (75-110) mg/dL Calcium (8.6-10.4) mg/dl Phosphorus (2.5-4.5) mg/dL Magnesium (1.6-2.3) mg/dL Total Bilirubin (0.2-1.3) mg/dL AST (17-59) U/L ALT (21-72) U/L Alkaline Phosphatase (38-126) U/L Total Protein (6.3-8.3) g/dL Albumin (3.5-5.0) g/dL Globulin (2.2-3.9) gm/dL Albumin/Globulin Ratio (1.0-2.1) Blood Type A POSITIVE Blood Type Confirm A POSITIVE Antibody Screen Negative Laboratory Results - last 24 hr 04/23/17 04/24/17 04/24/17 11:30 17:38 18:24 WBC 12.2 H RBC 3.83 L Hgb 11.1 L D Hct 33.5 L MCV 87.5 MCH 28.9 MCHC 33.0 RDW 14.9 H Plt Count 207 MPV 7.3 Neut % (Auto) Lymph % (Auto) [place] % (Auto) Eos % (Auto) Baso % (Auto) Neut # Lymph # [place] # Eos # Baso # Sodium Potassium Chloride Carbon Dioxide Anion Gap BUN Creatinine Est GFR ( Amer) Est GFR (Non-Af Amer) POC Glucose (mg/dL) 89 Random Glucose Calcium Phosphorus Magnesium Total Bilirubin AST ALT Alkaline Phosphatase Total Protein Albumin Globulin Albumin/Globulin Ratio Blood Type A POSITIVE Blood Type Confirm A POSITIVE Antibody Screen Negative 04/24/17 04/25/17 04/25/17 23:30 06:36 06:36 WBC 8.5 RBC 3.45 L Hgb 10.3 L Hct 30.4 L MCV 88.1 MCH 30.0 MCHC 34.0 RDW 15.1 H Plt Count 219 MPV 7.3 Neut % (Auto) 71.5 Lymph % (Auto) 22.1 [place] % (Auto) 5.4 Eos % (Auto) 0.6 Baso % (Auto) 0.4 Neut # 6.1 Lymph # 1.9 [place] # 0.5 Eos # 0.0 Baso # 0.0 Sodium 135 Potassium 3.8 Chloride 108 H Carbon Dioxide 24 Anion Gap 7 L BUN 24 H Creatinine 0.7 L Est GFR ( Amer) > 60 Est GFR (Non-Af Amer) > 60 POC Glucose (mg/dL) 102 Random Glucose 113 H Calcium 7.2 L Phosphorus 3.3 Magnesium 1.9 Total Bilirubin 1.0 AST 33 ALT 32 Alkaline Phosphatase 44 Total Protein 5.7 L Albumin 2.8 L Globulin 2.9 Albumin/Globulin Ratio 1.0 Blood Type Blood Type Confirm Antibody Screen Fingerstick Blood Sugar Results: 102 Review of Systems - Review of Systems Systems not reviewed;Unavailable: Other (schizophrenia) Critical Care Progress Note - Nutrition Nutrition: Nutrition Category Date Time Status NPO Diet [DIET] Diets 04/24/17 Breakfast Active Assessment/Plan - Assessment and Plan (Free Text) Assessment: 71M with PMH of schizophrenia who presents with acute GI bleed and resulting anemia Plan: Neuro * neurologically in tact * alert * Tox screen negative * Head CT: No acute abnormalities * Neurontin 100 mg PO QD Psych - history of schizophrenia * Pysch consulted (Dr. Barahona) - recs appreciated * one-to-one monitoring * continue home meds (zyprexa 20 mg PO QD) - plts within normal limits and no concern for thrombocytopenia at this time Cardio - tachycardia and hypotension on admission possibly 2/2 hypovolemia * tachycardia and hypotension resolved with transfusions * CT Chest/Abdomen/Pelvis: There are coronary artery calcifications. Ascending aorta is mildly dilated 4.17 m in diameter. There are multiple small calcified mediastinal and left hilar nodes. Respiratory - history of emphysema * Saturating well on room air * VB.38/58/33/21 * CT chest/abdomen/pelvis: There are bilateral paraseptal emphysematous with multiple blebs and bulla. There are additional centrilobular emphysematous changes in the upper lobes. There are panlobular emphysematous changes at the lung bases. There is nodular pleural scarring at the lung apices right greater than left.. There are multiple partially calcified pulmonary nodules. There is a 13 x 14 mm are shortly calcified right middle lobe nodule. There is a 6 x 6 mm partially calcified right lower lobe nodule. There is a 12 x 18 mm partially calcified left lower lobe nodule. There is a 10 x 13 mm partially calcified left lower lobe nodule. There are additional small partially calcified and noncalcified nodules. There is no lobar or segmental consolidation. There are no effusions. * continue home med (Singulair 10 mg PO QD) Renal * 24h fluid balance: -80 * BUN/Cr: 24/0.7 Electrolytes, Fluids, Nutrition * Electrolytes WNL * Fluids: LR @ 75 cc/h (discontinued NS @ 250 cc/h on 04/25/17) * Nutrition: NPO for GI bleed GI - acute GI bleed * Dr. Mercado consulted - recs appreciated * AST/ALT: 33/32 * TBili: 1.0 * Lipase: 104 * FOBT + * Patient unsure if ever had a colonoscopy in the past but is scheduled for EGD and colonoscopy today * CT chest/abdomen/pelvis: spleen and liver granulomas, large bilateral renal cysts, atrophic pancreas, small hiatal hernia, non obstructing inguinal hernias , enlarged prostate * Protonix drip Heme/Onc - anemia likely 2/2 acute GI bleed * H&H: 10.3/30.4 * transfused 2U pRBCs 04/24/17 * Transfused 3U pRBCs 04/23/17 * Plts: 219 * PT/PTT/INR: 13.8/23/1.2 (on 04/23/17) * Retic: 2.2 (04/23/17) * Ferritin: 107 * %Saturation: 54 * Folate: 15 ID * Afebrile * WBC: 11.2 * Lactate: 3.7, 1.7, 1.3 * Procal 0.06 Endocrine - history of DM * Monitor blood glucose - currently controlled * HbA1c: 5.7 * Hold home med (januvia 100 mg PO QD) per primary - BPH * UA: blood 1+, RBCs 6 * continue home med Flomax 0.4 mg PO QD * Removed Tran 04/25/17 Prophylaxis * GI: Protonix drip * DVT: c/i due to GI bleed Patient seen and discussed with Dr. Altaf Yang, PGY1 <Hailey Solitario - Last Filed: 04/25/17 13:02> CCU Objective - Vital Signs / Intake & Output Vital Signs (Last 4 hours): Vital Signs Pulse Resp BP Pulse Ox 04/25/17 11:00 47 L 9 L 100 04/25/17 10:49 50 L 15 120/60 99 04/25/17 10:00 49 L 9 L 98 04/25/17 09:49 55 L 10 L 116/60 96 04/25/17 09:00 48 L 8 L 98 Intake and Output (Last 8hrs): Intake & Output 04/24/17 04/25/17 04/25/17 22:59 06:59 14:59 Intake Total 665 80 105 Output Total 750 750 150 Balance -85 -670 -45 Weight 118 lb Intake: Intake, IV Amount 40 80 105 Right Forearm 40 80 30 Right Forearm Y-Port 75 Oral 300 0 0 Blood Product 325 Red Blood Cells Cpd As1 325 Lr Unit [id number] Output: Urine 750 750 150 Urethral (Tran) 750 750 150 Other: # Bowel Movements 2 1 - Medications Active Medications: Active Medications Generic Name Dose Route Start Last Admin Trade Name Freq PRN Reason Stop Dose Admin Gabapentin 100 mg 04/25/17 10:00 04/25/17 09:20 Neurontin PO 100 mg DAILY [facility] Administration Octreotide Acetate 1,250 mcg/ 252.5 mls @ 10.1 mls/hr 04/24/17 17:00 17:12 Sodium Chloride IV 10.1 mls/hr .Q24H [facility] Administration Protocol 50 MCG/HR Pantoprazole Sodium 80 mg/ 100 mls @ 10 mls/hr 04/25/17 08:30 04/25/17 09:19 Sodium Chloride IVPB 10 mls/hr .Q10H [facility] Administration 8 MG/HR Lactated Ringer's 1,000 mls @ 75 mls/hr 04/25/17 08:30 04/25/17 08:50 Lactated Ringer's IV 75 mls/hr .[id number] [facility] Administration Montelukast Sodium 10 mg 04/25/17 10:00 04/25/17 09:20 Singulair PO 10 mg DAILY [facility] Administration Pneumococcal Polyvalent Vaccine 0.5 ml 04/26/17 10:00 Pneumovax 23 Vaccine IM 04/26/17 10:01 .ONCE ONE Sitagliptin Phosphate 100 mg 04/25/17 10:00 04/25/17 09:19 Januvia PO 100 mg DAILY [facility] Administration Tamsulosin HCl 0.4 mg 04/25/17 10:00 04/25/17 09:19 Flomax PO 0.4 mg DAILY [facility] Administration - Patient Studies Lab Studies: Microbiology Studies 04/23/17 12:00 Blood Culture - Preliminary Blood NO GROWTH AFTER 24 HOURS 04/23/17 12:30 Blood Culture - Preliminary Blood NO GROWTH AFTER 24 HOURS 04/23/17 11:41 Urine Culture - Final Urine,Tran No Growth (<1,000 CFU/ML) Lab Studies 04/25/17 04/25/17 04/25/17 Range/Units 11:14 06:36 06:36 WBC 8.5 (4.8-10.8) K/uL RBC 3.45 L (4.40-5.90) Mil/uL Hgb 10.3 L (12.0-18.0) g/dL Hct 30.4 L (35.0-51.0) % MCV 88.1 (80.0-94.0) fL MCH 30.0 (27.0-31.0) pg MCHC 34.0 (33.0-37.0) g/dL RDW 15.1 H (11.5-14.5) % Plt Count 219 (130-400) K/uL MPV 7.3 (7.2-11.7) fL Neut % (Auto) 71.5 (50.0-75.0) % Lymph % (Auto) 22.1 (20.0-40.0) % [place] % (Auto) 5.4 (0.0-10.0) % Eos % (Auto) 0.6 (0.0-4.0) % Baso % (Auto) 0.4 (0.0-2.0) % Neut # 6.1 (1.8-7.0) K/uL Lymph # 1.9 (1.0-4.3) K/uL [place] # 0.5 (0.0-0.8) K/uL Eos # 0.0 (0.0-0.7) K/uL Baso # 0.0 (0.0-0.2) K/uL Differential Comment Sodium 135 (132-148) mmol/L Potassium 3.8 (3.6-5.2) mmol/L Chloride 108 H (98-107) mmol/L Carbon Dioxide 24 (22-30) mmol/L Anion Gap 7 L (10-20) BUN 24 H (9-20) mg/dL Creatinine 0.7 L (0.8-1.5) mg/dL Est GFR ( Amer) > 60 Est GFR (Non-Af Amer) > 60 POC Glucose (mg/dL) 121 H (65-110) mg/dL Random Glucose 113 H (75-110) mg/dL Calcium 7.2 L (8.6-10.4) mg/dl Phosphorus 3.3 (2.5-4.5) mg/dL Magnesium 1.9 (1.6-2.3) mg/dL Total Bilirubin 1.0 (0.2-1.3) mg/dL AST 33 (17-59) U/L ALT 32 (21-72) U/L Alkaline Phosphatase 44 (38-126) U/L Total Protein 5.7 L (6.3-8.3) g/dL Albumin 2.8 L (3.5-5.0) g/dL Globulin 2.9 (2.2-3.9) gm/dL Albumin/Globulin Ratio 1.0 (1.0-2.1) Blood Type Blood Type Confirm Antibody Screen 04/24/17 04/24/17 04/24/17 Range/Units 23:30 18:24 17:38 WBC 12.2 H (4.8-10.8) K/uL RBC 3.83 L (4.40-5.90) Mil/uL Hgb 11.1 L D (12.0-18.0) g/dL Hct 33.5 L (35.0-51.0) % MCV 87.5 (80.0-94.0) fL MCH 28.9 (27.0-31.0) pg MCHC 33.0 (33.0-37.0) g/dL RDW 14.9 H (11.5-14.5) % Plt Count 207 (130-400) K/uL MPV 7.3 (7.2-11.7) fL Neut % (Auto) (50.0-75.0) % Lymph % (Auto) (20.0-40.0) % [place] % (Auto) (0.0-10.0) % Eos % (Auto) (0.0-4.0) % Baso % (Auto) (0.0-2.0) % Neut # (1.8-7.0) K/uL Lymph # (1.0-4.3) K/uL [place] # (0.0-0.8) K/uL Eos # (0.0-0.7) K/uL Baso # (0.0-0.2) K/uL Differential Comment Sodium (132-148) mmol/L Potassium (3.6-5.2) mmol/L Chloride (98-107) mmol/L Carbon Dioxide (22-30) mmol/L Anion Gap (10-20) BUN (9-20) mg/dL Creatinine (0.8-1.5) mg/dL Est GFR ( Amer) Est GFR (Non-Af Amer) POC Glucose (mg/dL) 102 89 (65-110) mg/dL Random Glucose (75-110) mg/dL Calcium (8.6-10.4) mg/dl Phosphorus (2.5-4.5) mg/dL Magnesium (1.6-2.3) mg/dL Total Bilirubin (0.2-1.3) mg/dL AST (17-59) U/L ALT (21-72) U/L Alkaline Phosphatase (38-126) U/L Total Protein (6.3-8.3) g/dL Albumin (3.5-5.0) g/dL Globulin (2.2-3.9) gm/dL Albumin/Globulin Ratio (1.0-2.1) Blood Type Blood Type Confirm Antibody Screen 04/23/17 04/23/17 Range/Units 18:48 11:30 WBC (4.8-10.8) K/uL RBC (4.40-5.90) Mil/uL Hgb (12.0-18.0) g/dL Hct (35.0-51.0) % MCV (80.0-94.0) fL MCH (27.0-31.0) pg MCHC (33.0-37.0) g/dL RDW (11.5-14.5) % Plt Count (130-400) K/uL MPV (7.2-11.7) fL Neut % (Auto) (50.0-75.0) % Lymph % (Auto) (20.0-40.0) % [place] % (Auto) (0.0-10.0) % Eos % (Auto) (0.0-4.0) % Baso % (Auto) (0.0-2.0) % Neut # (1.8-7.0) K/uL Lymph # (1.0-4.3) K/uL [place] # (0.0-0.8) K/uL Eos # (0.0-0.7) K/uL Baso # (0.0-0.2) K/uL Differential Comment Sodium (132-148) mmol/L Potassium (3.6-5.2) mmol/L Chloride (98-107) mmol/L Carbon Dioxide (22-30) mmol/L Anion Gap (10-20) BUN (9-20) mg/dL Creatinine (0.8-1.5) mg/dL Est GFR ( Amer) Est GFR (Non-Af Amer) POC Glucose (mg/dL) (65-110) mg/dL Random Glucose (75-110) mg/dL Calcium (8.6-10.4) mg/dl Phosphorus (2.5-4.5) mg/dL Magnesium (1.6-2.3) mg/dL Total Bilirubin (0.2-1.3) mg/dL AST (17-59) U/L ALT (21-72) U/L Alkaline Phosphatase (38-126) U/L Total Protein (6.3-8.3) g/dL Albumin (3.5-5.0) g/dL Globulin (2.2-3.9) gm/dL Albumin/Globulin Ratio (1.0-2.1) Blood Type A POSITIVE Blood Type Confirm A POSITIVE Antibody Screen Negative Laboratory Results - last 24 hr 04/23/17 04/23/17 04/24/17 11:30 18:48 17:38 WBC RBC Hgb Hct MCV MCH MCHC RDW Plt Count MPV Neut % (Auto) Lymph % (Auto) [place] % (Auto) Eos % (Auto) Baso % (Auto) Neut # Lymph # [place] # Eos # Baso # Differential Comment Sodium Potassium Chloride Carbon Dioxide Anion Gap BUN Creatinine Est GFR ( Amer) Est GFR (Non-Af Amer) POC Glucose (mg/dL) 89 Random Glucose Calcium Phosphorus Magnesium Total Bilirubin AST ALT Alkaline Phosphatase Total Protein Albumin Globulin Albumin/Globulin Ratio Blood Type A POSITIVE Blood Type Confirm A POSITIVE Antibody Screen Negative 04/24/17 04/24/17 04/25/17 18:24 23:30 06:36 WBC 12.2 H 8.5 RBC 3.83 L 3.45 L Hgb 11.1 L D 10.3 L Hct 33.5 L 30.4 L MCV 87.5 88.1 MCH 28.9 30.0 MCHC 33.0 34.0 RDW 14.9 H 15.1 H Plt Count 207 219 MPV 7.3 7.3 Neut % (Auto) 71.5 Lymph % (Auto) 22.1 [place] % (Auto) 5.4 Eos % (Auto) 0.6 Baso % (Auto) 0.4 Neut # 6.1 Lymph # 1.9 [place] # 0.5 Eos # 0.0 Baso # 0.0 Differential Comment Sodium Potassium Chloride Carbon Dioxide Anion Gap BUN Creatinine Est GFR ( Amer) Est GFR (Non-Af Amer) POC Glucose (mg/dL) 102 Random Glucose Calcium Phosphorus Magnesium Total Bilirubin AST ALT Alkaline Phosphatase Total Protein Albumin Globulin Albumin/Globulin Ratio Blood Type Blood Type Confirm Antibody Screen 04/25/17 04/25/17 06:36 11:14 WBC RBC Hgb Hct MCV MCH MCHC RDW Plt Count MPV Neut % (Auto) Lymph % (Auto) [place] % (Auto) Eos % (Auto) Baso % (Auto) Neut # Lymph # [place] # Eos # Baso # Differential Comment Sodium 135 Potassium 3.8 Chloride 108 H Carbon Dioxide 24 Anion Gap 7 L BUN 24 H Creatinine 0.7 L Est GFR ( Amer) > 60 Est GFR (Non-Af Amer) > 60 POC Glucose (mg/dL) 121 H Random Glucose 113 H Calcium 7.2 L Phosphorus 3.3 Magnesium 1.9 Total Bilirubin 1.0 AST 33 ALT 32 Alkaline Phosphatase 44 Total Protein 5.7 L Albumin 2.8 L Globulin 2.9 Albumin/Globulin Ratio 1.0 Blood Type Blood Type Confirm Antibody Screen Critical Care Progress Note - Nutrition Nutrition: Nutrition Category Date Time Status NPO Diet [DIET] Diets 04/24/17 Breakfast Active Assessment/Plan - Assessment and Plan (Free Text) Plan: Above patient seen and examined with multi-disciplinary team. Patient dx with GI bleed. Patient remains hemodynamically stable. -f/u serial cbc d/w ICu team
--- NOTE | 2017-04-25 11:30 | CP.PCM.PN ---
Subjective - Date & Time of Evaluation Date of Evaluation: 04/25/17 Time of Evaluation: 11:15 - Subjective Subjective: Progress note dictated #[id number] Objective - Vital Signs/Intake and Output Vital Signs (last 24 hours): Temp Pulse Resp BP Pulse Ox 97.4 F L 47 L 9 L 120/60 100 04/25/17 08:00 04/25/17 11:00 04/25/17 11:00 04/25/17 10:49 04/25/17 11:00 Intake and Output: 04/25/17 04/25/17 06:59 18:59 Intake Total 410 105 Output Total 750 150 Balance -340 -45 - Medications Medications: Current Medications Gabapentin (Neurontin) 100 mg PO DAILY [facility] Last Admin: 04/25/17 09:20 Dose: 100 mg Octreotide Acetate 1,250 mcg/ (Sodium Chloride) 252.5 mls @ 10.1 mls/hr IV .Q24H [facility]; 50 MCG/HR PRN Reason: Protocol Last Admin: 04/24/17 17:12 Dose: 10.1 mls/hr Pantoprazole Sodium 80 mg/ (Sodium Chloride) 100 mls @ 10 mls/hr IVPB .Q10H [facility] PRN Reason: 8 MG/HR Last Admin: 04/25/17 09:19 Dose: 10 mls/hr Lactated Ringer's (Lactated Ringer's) 1,000 mls @ 75 mls/hr IV .[id number] [facility] Last Admin: 04/25/17 08:50 Dose: 75 mls/hr Montelukast Sodium (Singulair) 10 mg PO DAILY [facility] Last Admin: 04/25/17 09:20 Dose: 10 mg Pneumococcal Polyvalent Vaccine (Pneumovax 23 Vaccine) 0.5 ml IM .ONCE ONE Stop: 04/26/17 10:01 Sitagliptin Phosphate (Januvia) 100 mg PO DAILY [facility] Last Admin: 04/25/17 09:19 Dose: 100 mg Tamsulosin HCl (Flomax) 0.4 mg PO DAILY [facility] Last Admin: 04/25/17 09:19 Dose: 0.4 mg - Labs Labs: 04/25/17 06:36 04/25/17 06:36 PT 13.8 SECONDS (9.7-12.2) H 04/23/17 11:30 INR 1.2 04/23/17 11:30 APTT 23 SECONDS (21-34) 04/23/17 11:30
[2017-04-25] MEDS ORDERED: Propofol 10 mg/ml Inj (20 ML) ONE (14:10)
[2017-04-25] MEDS ORDERED: Lactated Ringer's 1,000 ML IV ONE (14:10)
--- NOTE | 2017-04-25 14:30 | PCM.SURG1 ---
Surgeon's Initial Post Op Note - Surgeon's Notes Surgeon: Stevan Lopez MD Training Analyst: none Type of Anesthesia: MAC Anesthesia Administered By: Wenceslao Esparza Pre-Operative Diagnosis: GI bleeding Operative Findings: Hiatal hernia, gastritis, duodenal ulcer Post-Operative Diagnosis: Hiatal hernia, gastritis, duodenal ulcer Operation Performed: EGD with biopsy; Colonoscopy not performed because patient was not prepped and the rectum is full of black stool Specimen/Specimens Removed: Biopsy antrum and proximal stomach Estimated Blood Loss: EBL {In ML}: 1 Date of Surgery/Procedure: 04/25/17 Time of Surgery/Procedure: 14:28
--- NOTE | 2017-04-25 16:12 | RAD ---
PROCEDURE: Radiographs of the Lumbar Spine. HISTORY: back pain COMPARISON: No prior. FINDINGS: BONES: Inferior leftward lumbar convexity. Stepladder like anterior posterior subluxation malalignment -L2-3 level ligamentous laxity etiology inferred. . No fracture. Anterior lumbar spondylosis -L1-2 and L2-3 levels Generalized osteopenia with the exception of subchondral sclerosis endplates 1-2 level. DISC SPACES: Fused disc space narrowing most severe at L2-3 and L1-2 OTHER FINDINGS: Right hip prosthesis IMPRESSION: Senescent changes. No fracture Right hip prosthesis/ replacement partially visualized
--- NOTE | 2017-04-25 23:50 | PN ---
DATE: 04/25/2017 SUBJECTIVE: The was seen and examined at bedside this morning on rounds. The patient is feeling much better. Denies any complaints of headache, dizziness. Denies any nausea, vomiting, abdominal pain. Denies any chest pain, shortness of breath or wheezing. All other systems reviewed and were found to be negative. PHYSICAL EXAMINATION: GENERAL: Elderly male, lying in bed, in no acute distress. VITAL SIGNS: Blood pressure 108/60, pulse 39, respirations 12, temperature 98.2 degree Fahrenheit, O2 sat 97% on room air. Intake was 1420, output was 1500 mL. HEENT: Pupils equal, round, reacting to light and accommodation. Extraocular muscles intact. No icterus. Positive pallor. No oral thrush. No pharyngeal congestion. NECK: Supple. No JVD. LUNGS: Bilateral vesicular breath sounds. No wheezing. No rhonchi. CARDIOVASCULAR SYSTEM: S1 and S2 present. Regular. ABDOMEN: Soft, nontender. Bowel sounds present. No guarding. No rigidity. No rebound tenderness noted. CENTRAL NERVOUS SYSTEM: Alert, awake, oriented x1. No focal deficits noted. EXTREMITIES: No edema. Palpable peripheral pulses. LABORATORY DATA: Labs from this morning, WBC 8.5, hemoglobin 10.3, hematocrit 30.4, platelets 219. Sodium 135, potassium 3.8, chloride 108, bicarb 24, BUN 24, creatinine 0.7, glucose 113, calcium 7.2, phosphorus 3.3, magnesium 1.9, total bilirubin 1.0, AST 33, ALT 32, alkaline phosphatase 44, total protein 5.7, albumin 2.8. Blood culture is negative so far. Urine culture negative. ASSESSMENT AND PLAN: Elderly male with history of schizophrenia, diabetes mellitus, benign prostatic hypertrophy, gastroesophageal reflux disease, admitted for gastrointestinal bleeding, upper versus lower gastrointestinal bleeding, persistent hypotension secondary to acute blood loss, received 5 units PRBC. His hemoglobin and hematocrit improved, underwent esophagogastroduodenoscopy this afternoon, which is consistent with duodenal ulcer, gastritis and hiatal hernia. The patient could not undergo colonoscopy secondary to lack of preparation. The patient's hemoglobin and hematocrit remained stable. GI input appreciated. The patient is started on liquid diet. We will follow up with GI, monitor the patient closely, continue with current medications. Ana Song MD
--- NOTE | 2017-04-26 08:24 | CP.PCM.PN ---
Subjective - Date & Time of Evaluation Date of Evaluation: 04/26/17 Time of Evaluation: 08:20 - Subjective Subjective: Patient denies having nausea, vomiting, abdominal pain, rectal bleeding. Objective - Vital Signs/Intake and Output Vital Signs (last 24 hours): Temp Pulse Resp BP Pulse Ox 98 F 44 L 12 108/49 L 99 04/26/17 04:00 04/26/17 07:05 04/26/17 07:05 04/26/17 07:05 04/26/17 07:05 Intake and Output: 04/26/17 04/26/17 06:59 18:59 Intake Total 1025 75 Output Total 0 0 Balance 1025 75 - Medications Medications: Current Medications Gabapentin (Neurontin) 100 mg PO DAILY [facility] Last Admin: 04/25/17 09:20 Dose: 100 mg Lactated Ringer's (Lactated Ringer's) 1,000 mls @ 75 mls/hr IV .[id number] [facility] Last Admin: 04/25/17 08:50 Dose: 75 mls/hr Montelukast Sodium (Singulair) 10 mg PO DAILY [facility] Last Admin: 04/25/17 09:20 Dose: 10 mg Pantoprazole Sodium (Protonix Inj) 40 mg IVP Q12H [facility] Last Admin: 04/25/17 15:29 Dose: 40 mg Pneumococcal Polyvalent Vaccine (Pneumovax 23 Vaccine) 0.5 ml IM .ONCE ONE Stop: 04/26/17 10:01 Sitagliptin Phosphate (Januvia) 100 mg PO DAILY [facility] Last Admin: 04/25/17 09:19 Dose: 100 mg Tamsulosin HCl (Flomax) 0.4 mg PO DAILY [facility] Last Admin: 04/25/17 09:19 Dose: 0.4 mg - Labs Labs: 04/25/17 06:36 04/25/17 06:36 PT 13.8 SECONDS (9.7-12.2) H 04/23/17 11:30 INR 1.2 04/23/17 11:30 APTT 23 SECONDS (21-34) 04/23/17 11:30 - Constitutional Appears: No Acute Distress - Head Exam Head Exam: ATRAUMATIC, NORMOCEPHALIC - Eye Exam Eye Exam: EOMI, PERRL - Neck Exam Neck Exam: absent: Lymphadenopathy, Thyromegaly - Respiratory Exam Respiratory Exam: NORMAL BREATHING PATTERN. absent: Rales, Rhonchi, Wheezes - Cardiovascular Exam Cardiovascular Exam: REGULAR RHYTHM, +S1, +S2. absent: Gallop, Rubs, Murmur - GI/Abdominal Exam GI & Abdominal Exam: Soft, Normal Bowel Sounds. absent: Tenderness, Mass, Organomegaly - Rectal Exam Rectal Exam: Deferred - Extremities Exam Extremities Exam: absent: Calf Tenderness, Pedal Edema Assessment and Plan (1) Duodenal ulcer Assessment & Plan: Patient had black stools on rectal exam yesterday. The EGD showed a duodenal ulcer with a clean base. The clinical picture is consistent with UGI bleed presenting with rectal bleeding owing to rapid transit of the blood through the GI tract. Diet may be advanced as tolerated. Colonoscopy may be done as an outpatient. Status: Acute
[2017-04-26] MEDS ORDERED: Pneumococcal 23-Valent Vaccine IM ONE (10:00)
--- NOTE | 2017-04-26 11:29 | CP.PCM.PN ---
Subjective - Date & Time of Evaluation Date of Evaluation: 04/26/17 Time of Evaluation: 11:15 - Subjective Subjective: progress note dictated [id number] Objective - Vital Signs/Intake and Output Vital Signs (last 24 hours): Temp Pulse Resp BP Pulse Ox 97.7 F 62 10 L 125/87 100 04/26/17 08:00 04/26/17 10:32 04/26/17 10:32 04/26/17 10:32 04/26/17 10:00 Intake and Output: 04/26/17 04/26/17 06:59 18:59 Intake Total 1025 270 Output Total 0 500 Balance 1025 -230 - Medications Medications: Current Medications Gabapentin (Neurontin) 100 mg PO DAILY [facility] Last Admin: 04/26/17 09:37 Dose: 100 mg Montelukast Sodium (Singulair) 10 mg PO DAILY [facility] Last Admin: 04/26/17 09:37 Dose: 10 mg Pantoprazole Sodium (Protonix Inj) 40 mg IVP Q12H [facility] Last Admin: 04/26/17 09:55 Dose: 40 mg Sitagliptin Phosphate (Januvia) 100 mg PO DAILY [facility] Last Admin: 04/26/17 09:37 Dose: 100 mg Tamsulosin HCl (Flomax) 0.4 mg PO DAILY [facility] Last Admin: 04/26/17 09:37 Dose: 0.4 mg - Labs Labs: 04/25/17 06:36 04/25/17 06:36 PT 13.8 SECONDS (9.7-12.2) H 04/23/17 11:30 INR 1.2 04/23/17 11:30 APTT 23 SECONDS (21-34) 04/23/17 11:30
--- NOTE | 2017-04-26 14:16 | CP.CCUPN ---
<Vera Yang - Last Filed: 04/26/17 14:10> CCU Subjective - Physician Review Subjective (Free Text): 04/26/17 09:26 Patient seen and examined at bedside. Patient resting comfortably in bed with no new complaints at this time. Patient still having some disorganized speech so ROS difficult to obtain. Patient has a 1-to-1 in the room with him. CCU Objective - Vital Signs / Intake & Output Vital Signs (Last 4 hours): Vital Signs Temp Pulse Resp BP Pulse Ox 04/26/17 12:03 80 12 115/55 L 04/26/17 12:00 98.1 F 88 16 98 04/26/17 11:33 72 13 100/50 L 83 L 04/26/17 11:00 96 H 12 83 L 04/26/17 10:32 62 10 L 125/87 Intake and Output (Last 8hrs): Intake & Output 04/25/17 04/26/17 04/26/17 22:59 06:59 14:59 Intake Total 600 800 510 Output Total 375 0 500 Balance 225 800 10 Weight 122 lb 9.232 oz Intake: Intake, IV Amount 600 600 150 Right Forearm Y-Port 600 600 150 Oral 0 200 360 Output: Urine 375 0 500 Condom 0 0 Straight 375 Urine, Voided 500 Stool 0 Other: # Voids Condom 0 Urine, Voided 0 # Bowel Movements 1 0 - Physical Exam Head: Positive for: Atraumatic, Normocephalic Pupils: Positive for: PERRL Extroacular Muscles: Positive for: EOMI Conjunctiva: Positive for: Normal Mouth: Positive for: Dry Respiratory/Chest: Positive for: Wheezes, Decreased Breath Sounds. Negative for : Respiratory Distress, Accessory Muscle Use, Rales Cardiovascular: Positive for: Regular Rate and Rhythm, Normal S1, S2 Abdomen: Positive for: Normal Bowel Sounds. Negative for: Tenderness, Distention Upper Extremity: Positive for: Normal Inspection Lower Extremity: Positive for: Normal Inspection Neurological: Positive for: GCS=15 Skin: Positive for: Warm, Dry, Normal Color. Negative for: Rashes Psychiatric: Positive for: Alert - Medications Active Medications: Active Medications Generic Name Dose Route Start Last Admin Trade Name Freq PRN Reason Stop Dose Admin Gabapentin 100 mg 04/25/17 10:00 04/26/17 09:37 Neurontin PO 100 mg DAILY [facility] Administration Montelukast Sodium 10 mg 04/25/17 10:00 04/26/17 09:37 Singulair PO 10 mg DAILY [facility] Administration Pantoprazole Sodium 40 mg 04/26/17 18:00 Protonix Ec Tab PO BID [facility] Sitagliptin Phosphate 100 mg 04/25/17 10:00 04/26/17 09:37 Januvia PO 100 mg DAILY [facility] Administration Tamsulosin HCl 0.4 mg 04/25/17 10:00 04/26/17 09:37 Flomax PO 0.4 mg DAILY [facility] Administration - Patient Studies Lab Studies: Microbiology Studies 04/24/17 15:45 MRSA Culture (Admit) - Final Naris MRSA NOT DETECTED 04/23/17 12:00 Blood Culture - Preliminary Blood NO GROWTH AFTER 48 HOURS 04/23/17 12:30 Blood Culture - Preliminary Blood NO GROWTH AFTER 48 HOURS Lab Studies 04/26/17 04/26/17 04/25/17 Range/Units 11:26 06:04 23:58 POC Glucose (mg/dL) 116 H 104 129 H (65-110) mg/dL 04/25/17 Range/Units 17:43 POC Glucose (mg/dL) 101 (65-110) mg/dL Laboratory Results - last 24 hr 04/25/17 04/25/17 04/26/17 17:43 23:58 06:04 POC Glucose (mg/dL) 101 129 H 104 04/26/17 11:26 POC Glucose (mg/dL) 116 H Fingerstick Blood Sugar Results: 116 Review of Systems - Review of Systems All systems: reviewed and no additional remarkable complaints except (as per HPI ) Critical Care Progress Note - Nutrition Nutrition: Nutrition Category Date Time Status Liquid Diet [DIET] Diets 04/25/17 Dinner Active Assessment/Plan - Assessment and Plan (Free Text) Assessment: 71M with PMH of schizophrenia who presents with acute GI bleed and resulting anemia Plan: Transfer pt to telemetry Neuro neurologically intact alert Tox screen negative Head CT: No acute abnormalities Neurontin 100 mg PO QD Psych - history of schizophrenia Pysch consulted (Dr. Barahona) - recs appreciated one-to-one monitoring continue home meds (zyprexa 20 mg PO QD) - plts within normal limits and no concern for thrombocytopenia at this time Cardio - tachycardia and hypotension on admission possibly 2/2 hypovolemia tachycardia and hypotension resolved with transfusions CT Chest/Abdomen/Pelvis: There are coronary artery calcifications. Ascending aorta is mildly dilated 4.17 m in diameter. There are multiple small calcified mediastinal and left hilar nodes. Respiratory - history of emphysema Saturating well on room air 04/23/17 VB.38/58/33/21 CT chest/abdomen/pelvis: There are bilateral paraseptal emphysematous with multiple blebs and bulla. There are additional centrilobular emphysematous changes in the upper lobes. There are panlobular emphysematous changes at the lung bases. There is nodular pleural scarring at the lung apices right greater than left.. There are multiple partially calcified pulmonary nodules. There is a 13 x 14 mm are shortly calcified right middle lobe nodule. There is a 6 x 6 mm partially calcified right lower lobe nodule. There is a 12 x 18 mm partially calcified left lower lobe nodule. There is a 10 x 13 mm partially calcified left lower lobe nodule. There are additional small partially calcified and noncalcified nodules. There is no lobar or segmental consolidation. There are no effusions. continue home med (Singulair 10 mg PO QD) Renal 24h fluid balance: + 1455 I: 1780 ml IV, 200ml oral O: 525ml condom catheter 04/25/17 BUN/Cr: 24/0.7, 04/26/17 pending results Electrolytes, Fluids, Nutrition Electrolytes WNL Fluids: discontinue LR @ 75 cc/h 04/26/17 (discontinued NS @ 250 cc/h on ), Nutrition: 04/26/17 advanced pt diet to liquid diet GI - acute GI bleed Dr. Mercado consulted - recs appreciated 04/25/17 AST/ALT: 33/32 TBili: 1.0 Lipase: 104 FOBT + on 04/25/17 04/25/17 EGD: duodenal ulcer with a clean base consistent with UGI bleed. Outpatient colonoscopy recommended Liquid diet - advance per GI 04/23/17 CT chest/abdomen/pelvis: spleen and liver granulomas, large bilateral renal cysts, atrophic pancreas, small hiatal hernia, non obstructing inguinal hernias, enlarged prostate med: Protonix drip Heme/Onc - anemia likely 2/2 acute GI bleed 04/25/17 labs, 04/26/17 pending H&H: 10.3/30.4 transfused 2U pRBCs 04/24/17 Transfused 3U pRBCs 04/23/17 Plts: 219 PT/PTT/INR: 13.8/23/1.2 (on 04/23/17) Retic: 2.2 (04/23/17) Ferritin: 107 %Saturation: 54 Folate: 15 ID Afebrile 04/25/17 labs, 04/26/17 pending WBC: 11.2 Lactate: 3.7, 1.7, 1.3 Procal 0.06 Endocrine - history of DM Monitor blood glucose - currently controlled HbA1c: 5.7 Hold home med (januvia 100 mg PO QD) per primary - BPH UA: blood 1+, RBCs 6 continue home med Flomax 0.4 mg PO QD Removed Tran 04/25/17, condom catheter in place. Prophylaxis GI: Protonix drip DVT: c/i due to GI bleed <Hailey Solitario - Last Filed: 04/26/17 17:54> CCU Objective - Vital Signs / Intake & Output Vital Signs (Last 4 hours): Vital Signs Temp Pulse Resp BP 04/26/17 17:41 53 L 04/26/17 17:38 53 L 04/26/17 16:00 97.7 F 59 L 11 L 04/26/17 15:00 58 L 13 04/26/17 14:43 68 10 L 110/66 04/26/17 14:00 67 11 L Intake and Output (Last 8hrs): Intake & Output 04/26/17 04/26/17 04/26/17 06:59 14:59 22:59 Intake Total 800 630 290 Output Total 0 900 250 Balance 800 -270 40 Weight 122 lb 9.232 oz Intake: Intake, IV Amount 600 150 Right Forearm Y-Port 600 150 Oral 200 480 290 Output: Urine 0 900 250 Condom 0 0 Urine, Voided 900 250 Stool 0 Other: # Voids Urine, Voided 0 0 # Bowel Movements 1 0 - Medications Active Medications: Active Medications Generic Name Dose Route Start Last Admin Trade Name Freq PRN Reason Stop Dose Admin Gabapentin 100 mg 04/25/17 10:00 04/26/17 09:37 Neurontin PO 100 mg DAILY [facility] Administration Montelukast Sodium 10 mg 04/25/17 10:00 04/26/17 09:37 Singulair PO 10 mg DAILY [facility] Administration Pantoprazole Sodium 40 mg 04/26/17 18:00 04/26/17 17:37 Protonix Ec Tab PO 40 mg BID [facility] Administration Sitagliptin Phosphate 100 mg 04/25/17 10:00 04/26/17 09:37 Januvia PO 100 mg DAILY [facility] Administration Tamsulosin HCl 0.4 mg 04/25/17 10:00 04/26/17 09:37 Flomax PO 0.4 mg DAILY [facility] Administration - Patient Studies Lab Studies: Microbiology Studies 04/24/17 15:45 MRSA Culture (Admit) - Final Naris MRSA NOT DETECTED 04/23/17 12:00 Blood Culture - Preliminary Blood NO GROWTH AFTER 48 HOURS 04/23/17 12:30 Blood Culture - Preliminary Blood NO GROWTH AFTER 48 HOURS Lab Studies 04/26/17 04/26/17 04/25/17 Range/Units 11:26 06:04 23:58 POC Glucose (mg/dL) 116 H 104 129 H (65-110) mg/dL Laboratory Results - last 24 hr 04/25/17 04/26/17 04/26/17 23:58 06:04 11:26 POC Glucose (mg/dL) 129 H 104 116 H Critical Care Progress Note - Nutrition Nutrition: Nutrition Category Date Time Status Liquid Diet [DIET] Diets 04/25/17 Dinner Active Assessment/Plan - Assessment and Plan (Free Text) Plan: Patient remains hemodynamically stable. -serial cbc normal -advance diet
[2017-04-26] MEDS: Pantoprazole 40 mg EC Tab PO SCH (17:37)
[2017-04-26 19:35] LABS: BASO # 0.1 K/uL (0.0-0.2); BASO % 1.3 % (0.0-2.0); EOS # 0.1 K/uL (0.0-0.7); EOS % 1.1 % (0.0-4.0); HEMOGLOBIN 10.6 g/dL (12.0-18.0); LYMPH # 2.1 K/uL (1.0-4.3); LYMPH % 24.8 % (20.0-40.0); MEAN CELL VOLUME 88.1 fL (80.0-94.0); MEAN CORPUSCULAR HEMOGLOBIN 30.7 pg (27.0-31.0); MEAN CORPUSCULAR HGB CONC 34.8 g/dL (33.0-37.0); MEAN PLATELET VOLUME 6.6 fL (7.2-11.7); MONO # 0.8 K/uL (0.0-0.8); MONO % 8.8 % (0.0-10.0); NEUT # 5.5 K/uL (1.8-7.0); NRBC % 0.1 % (0.0-2.0); RBC 3.46 Mil/uL (4.40-5.90); RED CELL DISTRIBUTION WIDTH 14.6 % (11.5-14.5); WHITE BLOOD COUNT 8.7 K/uL (4.8-10.8)
[2017-04-26 19:49] LABS: ALBUMIN 2.6 g/dL (3.5-5.0); ALT/SGPT 22 U/L (21-72); AST/SGOT 25 U/L (17-59); BLOOD UREA NITROGEN 13 mg/dL (9-20); CALCIUM 7.4 mg/dl (8.6-10.4); GFR AFRICAN-AMERICAN > 60; GFR NON-AFRICAN AMERICAN > 60
[2017-04-26] MEDS: Potassium Chloride 20 mEq ER Tab PO SCH (22:33)
--- NOTE | 2017-04-27 00:31 | PN ---
DATE: 04/26/2017 SUBJECTIVE: The patient was seen and examined at bedside. Patient's mental status remains the same. He denies any complaints of headache or dizziness. Denies any chest pain, shortness of breath or wheezing. Denies any nausea, vomiting, or abdominal pain, but had black-colored stools. Denies any urinary complaints. Denied any leg pain or leg cramps. PHYSICAL EXAMINATION: GENERAL: An elderly male, lying in bed, in no acute distress. VITAL SIGNS: Blood pressure 110/66, pulse 68, respiration 13, temperature 97.7 degree Fahrenheit, O2 sat 100% on room air. Intake is 1980, output is 525. HEENT: Pupils equal, round, reacting to light and accommodation. Extraocular muscles intact. No icterus. Positive pallor. No oral thrush. No pharyngeal congestion. NECK: Supple. No JVD. LUNGS: Bilateral vesicular breath sounds. No wheezing. No rhonchi. CARDIOVASCULAR SYSTEM: S1 and S2 present. Regular. ABDOMEN: Soft, nontender. Bowel sounds present. No guarding. No rigidity. No rebound tenderness noted. CENTRAL NERVOUS SYSTEM: Alert, awake, oriented x1. No focal deficits noted. EXTREMITIES: No edema. Palpable peripheral pulses. MEDICATIONS: Include Neurontin 100 mg daily, Singulair 10 mg daily, Protonix 40 mg b.i.d., Januvia 100 mg daily, Flomax 0.4 mg daily. LABORATORY DATA: Labs from today, WBC 8.7, hemoglobin 10.6, hematocrit 30.5, platelets 251. Sodium 129, potassium 3.2, chloride 101, bicarb 25, BUN 13, creatinine 0.7, glucose 105, calcium 7.4, total protein 5.2, albumin 2.6. ASSESSMENT AND PLAN: An elderly male with history of schizophrenia, diabetes mellitus, benign prostatic hypertrophy, neuropathy, chronic obstructive pulmonary disease, admitted for acute blood loss anemia, gastrointestinal bleeding, possible upper gastrointestinal bleeding from duodenal ulcer, status post hypotension, status post multiple packed red blood cells transfusion, status post EGD consistent with duodenal ulcer with clean base, unable to have colonoscopy done secondary to lack of perforation. Patient's H&H remains stable. Diet is being advanced. Supplement potassium. Now repeat labs in a.m. Follow up with GI. Continue with current medication. Ana Song MD [facility] # [id number]
[2017-04-27] MEDS: Potassium Chloride 20 mEq ER Tab PO SCH ×2 (01:45→05:33)
[2017-04-27 06:48] LABS: BASO % 0.3 % (0.0-2.0); EOS % 0.3 % (0.0-4.0); HEMOGLOBIN 11.9 g/dL (12.0-18.0); LYMPH # 1.4 K/uL (1.0-4.3); LYMPH % 15.1 % (20.0-40.0); MEAN CELL VOLUME 88.5 fL (80.0-94.0); MEAN CORPUSCULAR HEMOGLOBIN 30.8 pg (27.0-31.0); MEAN CORPUSCULAR HGB CONC 34.8 g/dL (33.0-37.0); MEAN PLATELET VOLUME 7.3 fL (7.2-11.7); MONO # 0.6 K/uL (0.0-0.8); MONO % 6.5 % (0.0-10.0); NEUT # 7.4 K/uL (1.8-7.0); NEUT % 77.8 % (50.0-75.0); RBC 3.88 Mil/uL (4.40-5.90); RED CELL DISTRIBUTION WIDTH 14.3 % (11.5-14.5); WHITE BLOOD COUNT 9.5 K/uL (4.8-10.8)
[2017-04-27 07:15] LABS: ALBUMIN 2.9 g/dL (3.5-5.0); ALT/SGPT 25 U/L (21-72); AST/SGOT 27 U/L (17-59); BLOOD UREA NITROGEN 10 mg/dL (9-20); CALCIUM 7.4 mg/dl (8.6-10.4); GFR AFRICAN-AMERICAN > 60; GFR NON-AFRICAN AMERICAN > 60; MAGNESIUM 1.8 mg/dL (1.6-2.3)
[2017-04-27] MEDS: Pantoprazole 40 mg EC Tab PO SCH ×2 (09:27→17:23)
[2017-04-27 12:26] VITALS: RESP 20
--- NOTE | 2017-04-27 12:50 | CP.PCM.PN ---
Subjective - Date & Time of Evaluation Date of Evaluation: 04/27/17 Time of Evaluation: 12:48 - Subjective Subjective: COVERING DR LEHMAN Called as patient had a dark black stool today. Increase hgb>11 today. No pain N ,V. Wants to eat solid food. Objective - Vital Signs/Intake and Output Vital Signs (last 24 hours): Temp Pulse Resp BP Pulse Ox 97.8 F 89 20 144/74 99 04/27/17 11:15 04/27/17 11:15 04/27/17 11:15 04/27/17 11:15 04/27/17 11:15 Intake and Output: 04/27/17 04/27/17 06:59 18:59 Intake Total 120 800 Output Total 0 1070 Balance 120 -270 - Medications Medications: Current Medications Gabapentin (Neurontin) 100 mg PO DAILY [facility] Last Admin: 04/27/17 09:27 Dose: 100 mg Montelukast Sodium (Singulair) 10 mg PO DAILY [facility] Last Admin: 04/27/17 09:27 Dose: 10 mg Pantoprazole Sodium (Protonix Ec Tab) 40 mg PO BID [facility] Last Admin: 04/27/17 09:27 Dose: 40 mg Sitagliptin Phosphate (Januvia) 100 mg PO DAILY [facility] Last Admin: 04/27/17 09:27 Dose: 100 mg Tamsulosin HCl (Flomax) 0.4 mg PO DAILY [facility] Last Admin: 04/27/17 09:26 Dose: 0.4 mg - Labs Labs: 04/27/17 06:38 04/27/17 06:38 PT 13.8 SECONDS (9.7-12.2) H 04/23/17 11:30 INR 1.2 04/23/17 11:30 APTT 23 SECONDS (21-34) 04/23/17 11:30 - Constitutional Appears: No Acute Distress - Head Exam Head Exam: ATRAUMATIC, NORMOCEPHALIC Additional comments: poor dentition - Eye Exam Eye Exam: EOMI, PERRL - Respiratory Exam Respiratory Exam: NORMAL BREATHING PATTERN - Cardiovascular Exam Cardiovascular Exam: REGULAR RHYTHM, +S1 - GI/Abdominal Exam GI & Abdominal Exam: Soft, Normal Bowel Sounds. absent: Distended, Firm, Guarding, Tenderness, Mass, Rebound - Extremities Exam Extremities Exam: Normal Inspection Assessment and Plan (1) Acute duodenal ulcer with bleeding Assessment & Plan: Acute DU seen with clean base, likely source of acute bleeding episode. H/H stable Continue PPI and advance diet to solids as tolerated Plan for colonoscopy with Dr Lehman as outpatient. Status: Acute (2) Melena Assessment & Plan: Dark stool today likely related to passage of old, retained blood from prior ulcer bleeding. Monitor H/H. Stool should become brown in about 3 days after bleeding. Status: Acute
--- NOTE | 2017-04-27 13:34 | CP.PCM.PN ---
Subjective - Date & Time of Evaluation Date of Evaluation: 04/27/17 Time of Evaluation: 15:30 - Subjective Subjective: Progress note dictated #[id number] Objective - Vital Signs/Intake and Output Vital Signs (last 24 hours): Temp Pulse Resp BP Pulse Ox 97.8 F 89 20 144/74 99 04/27/17 11:15 04/27/17 11:15 04/27/17 11:15 04/27/17 11:15 04/27/17 11:15 Intake and Output: 04/27/17 04/27/17 06:59 18:59 Intake Total 120 800 Output Total 0 1070 Balance 120 -270 - Medications Medications: Current Medications Gabapentin (Neurontin) 100 mg PO DAILY [facility] Last Admin: 04/27/17 09:27 Dose: 100 mg Montelukast Sodium (Singulair) 10 mg PO DAILY [facility] Last Admin: 04/27/17 09:27 Dose: 10 mg Pantoprazole Sodium (Protonix Ec Tab) 40 mg PO BID [facility] Last Admin: 04/27/17 09:27 Dose: 40 mg Sitagliptin Phosphate (Januvia) 100 mg PO DAILY [facility] Last Admin: 04/27/17 09:27 Dose: 100 mg Tamsulosin HCl (Flomax) 0.4 mg PO DAILY [facility] Last Admin: 04/27/17 09:26 Dose: 0.4 mg - Labs Labs: 04/27/17 06:38 04/27/17 06:38 PT 13.8 SECONDS (9.7-12.2) H 04/23/17 11:30 INR 1.2 04/23/17 11:30 APTT 23 SECONDS (21-34) 04/23/17 11:30
--- NOTE | 2017-04-27 22:47 | PN ---
DATE: SUBJECTIVE: The patient was seen and examined at bedside. The patient is clinically improving. Denies any new complaints. PHYSICAL EXAMINATION: GENERAL: Elderly male, lying in bed, in no acute distress. VITAL SIGNS: Blood pressure 119/69, pulse 80, respirations 20, temperature 98 degrees Fahrenheit, O2 sat 97% on room air. Intake is 1040 and output is 1150. HEENT: Pupils equal, round, reacting to light and accommodation. Extraocular muscles intact. No icterus. No pallor. No oral thrush. No pharyngeal congestion. NECK: Supple. No JVD. LUNGS: Bilateral vesicular breath sounds. No wheezing. No rhonchi. CARDIOVASCULAR SYSTEM: S1 and S2 present. Regular. ABDOMEN: Soft, nontender. Bowel sounds present. No guarding. No rigidity. No rebound tenderness noted. CENTRAL NERVOUS SYSTEM: Alert, awake, oriented x1. No focal deficits noted. EXTREMITIES: No edema. Palpable peripheral pulses. MEDICATIONS: Include Neurontin 100 mg daily, Singulair 10 mg daily, Protonix 40 mg b.i.d., Januvia 100 mg p.o. daily, Flomax 0.4 mg p.o. daily. LABORATORY DATA: From this morning, WBC 9.5, hemoglobin 11.9, hematocrit 34.3, platelets 252. Sodium 132, potassium 3.8, chloride 100, bicarb 27, BUN 10, creatinine 0.6, glucose 97, calcium 7.4, magnesium 1.8, total bili 1.2, AST 27, ALT 25, alkaline phosphatase 52, total protein 5.9, albumin 2.9. ASSESSMENT AND PLAN: Elderly male with diabetes mellitus, schizophrenia, admitted for upper gastrointestinal bleeding, status post esophagogastroduodenoscopy consistent with duodenal ulcer with clean base, status post hypokalemia, status post multiple blood transfusions, status post hypotension. His diet has been advanced. We will discuss with social worker masters for subacute rehab replacement. GI input appreciated. Recommending as outpatient. We will continue with current medications. Ana Song MD
[2017-04-28 07:34] LABS: BASO % 0.4 % (0.0-2.0); EOS # 0.1 K/uL (0.0-0.7); EOS % 0.7 % (0.0-4.0); HEMOGLOBIN 12.1 g/dL (12.0-18.0); LYMPH # 1.8 K/uL (1.0-4.3); LYMPH % 20.6 % (20.0-40.0); MEAN CELL VOLUME 88.9 fL (80.0-94.0); MEAN CORPUSCULAR HEMOGLOBIN 30.7 pg (27.0-31.0); MEAN CORPUSCULAR HGB CONC 34.6 g/dL (33.0-37.0); MEAN PLATELET VOLUME 6.9 fL (7.2-11.7); MONO # 0.6 K/uL (0.0-0.8); MONO % 6.3 % (0.0-10.0); NEUT # 6.5 K/uL (1.8-7.0); NRBC % 0.1 % (0.0-2.0); RBC 3.93 Mil/uL (4.40-5.90); RED CELL DISTRIBUTION WIDTH 15.1 % (11.5-14.5)
[2017-04-28 08:01] LABS: ALBUMIN 3.1 g/dL (3.5-5.0); ALT/SGPT 29 U/L (21-72); AST/SGOT 28 U/L (17-59); BLOOD UREA NITROGEN 12 mg/dL (9-20); CALCIUM 7.8 mg/dl (8.6-10.4); GFR AFRICAN-AMERICAN > 60; GFR NON-AFRICAN AMERICAN > 60
[2017-04-28 08:02] LABS: ALB/GLOB RATIO 1.1 (1.0-2.1)
[2017-04-28] MEDS: Pantoprazole 40 mg EC Tab PO SCH ×2 (10:48→18:36)
--- NOTE | 2017-04-28 12:47 | CP.PCM.PN ---
Subjective - Date & Time of Evaluation Date of Evaluation: 04/28/17 Time of Evaluation: 12:46 - Subjective Subjective: COVERING DR LEHMAN No bleeding or melena, H/H stable Objective - Vital Signs/Intake and Output Vital Signs (last 24 hours): Temp Pulse Resp BP Pulse Ox 97.7 F 90 20 124/71 100 04/28/17 08:59 04/28/17 08:59 04/28/17 08:59 04/28/17 08:59 04/28/17 08:59 Intake and Output: 04/28/17 04/28/17 06:59 18:59 Intake Total 450 Output Total 750 Balance -300 - Medications Medications: Current Medications Gabapentin (Neurontin) 100 mg PO DAILY [facility] Last Admin: 04/28/17 10:48 Dose: 100 mg Montelukast Sodium (Singulair) 10 mg PO DAILY [facility] Last Admin: 04/28/17 10:48 Dose: 10 mg Pantoprazole Sodium (Protonix Ec Tab) 40 mg PO BID [facility] Last Admin: 04/28/17 10:48 Dose: 40 mg Sitagliptin Phosphate (Januvia) 100 mg PO DAILY [facility] Last Admin: 04/28/17 10:48 Dose: 100 mg Tamsulosin HCl (Flomax) 0.4 mg PO DAILY [facility] Last Admin: 04/28/17 10:48 Dose: 0.4 mg - Labs Labs: 04/28/17 07:22 04/28/17 07:22 PT 13.8 SECONDS (9.7-12.2) H 04/23/17 11:30 INR 1.2 04/23/17 11:30 APTT 23 SECONDS (21-34) 04/23/17 11:30 - Constitutional Appears: No Acute Distress - Head Exam Head Exam: ATRAUMATIC, NORMOCEPHALIC - Respiratory Exam Respiratory Exam: NORMAL BREATHING PATTERN - Cardiovascular Exam Cardiovascular Exam: REGULAR RHYTHM - GI/Abdominal Exam GI & Abdominal Exam: Soft, Normal Bowel Sounds. absent: Tenderness Assessment and Plan (1) Acute duodenal ulcer with bleeding Assessment & Plan: Clinically stable for discharge Continue PPI Outpatient followup with Dr Lehman for colonoscopy Status: Acute (2) Melena Assessment & Plan: H/H stable Status: Acute
--- NOTE | 2017-04-28 16:41 | CP.PCM.PN ---
Subjective - Date & Time of Evaluation Date of Evaluation: 04/28/17 Time of Evaluation: 16:40 - Subjective Subjective: progress note dictated # [id number] Objective - Vital Signs/Intake and Output Vital Signs (last 24 hours): Temp Pulse Resp BP Pulse Ox 97.4 F L 69 20 127/75 99 04/28/17 15:00 04/28/17 15:00 04/28/17 15:00 04/28/17 15:00 04/28/17 15:00 Intake and Output: 04/28/17 04/28/17 06:59 18:59 Intake Total 450 Output Total 750 Balance -300 - Medications Medications: Current Medications Gabapentin (Neurontin) 100 mg PO DAILY [facility] Last Admin: 04/28/17 10:48 Dose: 100 mg Montelukast Sodium (Singulair) 10 mg PO DAILY [facility] Last Admin: 04/28/17 10:48 Dose: 10 mg Pantoprazole Sodium (Protonix Ec Tab) 40 mg PO BID [facility] Last Admin: 04/28/17 10:48 Dose: 40 mg Sitagliptin Phosphate (Januvia) 100 mg PO DAILY [facility] Last Admin: 04/28/17 10:48 Dose: 100 mg Tamsulosin HCl (Flomax) 0.4 mg PO DAILY [facility] Last Admin: 04/28/17 10:48 Dose: 0.4 mg - Labs Labs: 04/28/17 07:22 04/28/17 07:22 PT 13.8 SECONDS (9.7-12.2) H 04/23/17 11:30 INR 1.2 04/23/17 11:30 APTT 23 SECONDS (21-34) 04/23/17 11:30
--- NOTE | 2017-04-28 17:39 | PN ---
DATE: 04/28/2017 SUBJECTIVE: The patient is seen and examined at bedside. The patient is feeling much better. Denies any headache, dizziness. Denies any chest pain, shortness of breath or wheezing. Denies any abdominal pain, diarrhea or constipation. All other systems reviewed and were found to be negative. PHYSICAL EXAMINATION: GENERAL: Elderly male, lying in bed, in no acute distress. VITAL SIGNS: Blood pressure 127/75, pulse 69, respirations 20, temperature 97.4 degrees Fahrenheit, O2 saturation 99% on room air. HEENT: Pupils equal, round, reacting to light and accommodation. Extraocular muscles intact. No icterus. No pallor. No oral thrush. No pharyngeal congestion. NECK: Supple. No JVD. LUNGS: Bilateral vesicular breath sounds. No wheezing. No rhonchi. CARDIOVASCULAR SYSTEM: S1 and S2 present, regular. ABDOMEN: Soft, nontender. Bowel sounds present. No guarding. No rigidity. No rebound tenderness noted. CENTRAL NERVOUS SYSTEM: Alert, awake, oriented x1. No focal deficits noted. EXTREMITIES: No edema. LABORATORY DATA: Labs from this morning, WBC 9.0, hemoglobin 12.1, hematocrit 34.9, platelets 243, sodium 132, potassium 4.1, chloride 100, bicarb 28, BUN 12, creatinine 0.8, glucose 102, calcium 7.8, total bili 0.9, AST 28, ALT 29, alkaline phosphatase 52, total protein 5.8, albumin 3.1. MEDICATIONS: Include Neurontin 100 mg p.o. daily, Singulair 10 mg p.o. daily, Protonix 40 mg p.o. b.i.d., Januvia 100 mg daily, Flomax 0.4 mg daily. ASSESSMENT AND PLAN: Elderly male with schizophrenia, diabetes mellitus, admitted for upper gastrointestinal bleeding, possibly from duodenal ulcer, status post esophagogastroduodenoscopy consistent with duodenal ulcer with clean base. Unable to undergo colonoscopy secondary to lack of preparation and it is being recommended as outpatient procedure by Gastroenterology. The patient's hemoglobin and hematocrit remained stable. Tolerating regular diet. The patient's brother is willing to send the patient for subacute rehab, which was recommended by physical therapy. We will call Planner/Scheduler for subacute rehab placement. We will follow up with Planner/Scheduler in a.m. Ana Song MD [facility] # [id number]
--- NOTE | 2017-04-29 08:07 | PN ---
DATE: 04/25/2017 SUBJECTIVE: The patient is seen and examined at bedside this morning. The patient is comfortable, lying in bed. Denies any headache, dizziness. Denies any chest pain, shortness of breath or wheezing. Denies any nausea, vomiting, abdominal pain, diarrhea, or constipation. Denies any new complaints on examination. PHYSICAL EXAMINATION: GENERAL: Elderly male, lying in bed, in no acute distress.. VITAL SIGNS: Blood pressure 105/59, pulse 45, respirations 13, temperature 97.6 degrees Fahrenheit, O2 sat 98% on room air. Intake is 1420. Output is 1600 mL. HEENT: Pupils are equal, round and reacting to light and accommodation. Extraocular muscles intact. No icterus. No pallor. No oral thrush. No pharyngeal congestion. NECK: Supple. No JVD. LUNGS: Bilateral vesicular breath sounds. No wheezing, no rhonchi. CARDIOVASCULAR SYSTEM: S1 and S2 present, regular. ABDOMEN: Soft, nontender. Bowel sounds are present. No guarding. No rigidity. No rebound tenderness noted. CENTRAL NERVOUS SYSTEM: Alert, awake, oriented x1. No focal deficits noted. DICTATION ENDED ABRUPTLY. Ana Song MD
[2017-04-29 08:35] LABS: BASO # 0.1 K/uL (0.0-0.2); BASO % 1.1 % (0.0-2.0); EOS # 0.1 K/uL (0.0-0.7); EOS % 0.9 % (0.0-4.0); HEMOGLOBIN 12.6 g/dL (12.0-18.0); LYMPH # 1.9 K/uL (1.0-4.3); LYMPH % 23.9 % (20.0-40.0); MEAN CELL VOLUME 89.9 fL (80.0-94.0); MEAN CORPUSCULAR HEMOGLOBIN 30.8 pg (27.0-31.0); MEAN CORPUSCULAR HGB CONC 34.3 g/dL (33.0-37.0); MEAN PLATELET VOLUME 7.4 fL (7.2-11.7); MONO # 0.6 K/uL (0.0-0.8); MONO % 7.5 % (0.0-10.0); NEUT # 5.4 K/uL (1.8-7.0); NEUT % 66.6 % (50.0-75.0); NRBC % 0.1 % (0.0-2.0); RBC 4.07 Mil/uL (4.40-5.90); WHITE BLOOD COUNT 8.2 K/uL (4.8-10.8)
[2017-04-29 09:12] LABS: ALB/GLOB RATIO 1.1 (1.0-2.1); ALBUMIN 3.5 g/dL (3.5-5.0); ALT/SGPT 26 U/L (21-72); AST/SGOT 23 U/L (17-59); BLOOD UREA NITROGEN 14 mg/dL (9-20); CALCIUM 8.1 mg/dl (8.6-10.4); GFR AFRICAN-AMERICAN > 60; GFR NON-AFRICAN AMERICAN > 60
[2017-04-29] MEDS: Pantoprazole 40 mg EC Tab PO SCH ×2 (09:44→17:56)
--- NOTE | 2017-04-29 11:47 | CP.PCM.PN ---
Subjective - Date & Time of Evaluation Date of Evaluation: 04/29/17 Time of Evaluation: 11:45 - Subjective Subjective: Progress note dictated #[id number] Objective - Vital Signs/Intake and Output Vital Signs (last 24 hours): Temp Pulse Resp BP Pulse Ox 97.2 F L 89 20 114/75 98 04/29/17 08:00 04/29/17 08:00 04/29/17 08:00 04/29/17 08:00 04/29/17 08:00 Intake and Output: 04/29/17 04/29/17 06:59 18:59 Intake Total 150 Output Total 400 Balance -250 - Medications Medications: Current Medications Gabapentin (Neurontin) 100 mg PO DAILY [facility] Last Admin: 04/29/17 09:44 Dose: 100 mg Montelukast Sodium (Singulair) 10 mg PO DAILY [facility] Last Admin: 04/29/17 09:45 Dose: 10 mg Pantoprazole Sodium (Protonix Ec Tab) 40 mg PO BID [facility] Last Admin: 04/29/17 09:44 Dose: 40 mg Sitagliptin Phosphate (Januvia) 100 mg PO DAILY [facility] Last Admin: 04/29/17 09:45 Dose: 100 mg Tamsulosin HCl (Flomax) 0.4 mg PO DAILY [facility] Last Admin: 04/29/17 09:44 Dose: 0.4 mg - Labs Labs: 04/29/17 08:27 04/29/17 08:27 PT 13.8 SECONDS (9.7-12.2) H 04/23/17 11:30 INR 1.2 04/23/17 11:30 APTT 23 SECONDS (21-34) 04/23/17 11:30
--- NOTE | 2017-04-30 00:34 | PN ---
DATE: 04/29/2017 SUBJECTIVE: The patient was seen and examined at bedside. Patient is feeling much better, tolerating p.o. feeds. Denies any new complaints. PHYSICAL EXAMINATION: GENERAL: Elderly male, lying in bed, in no acute distress. VITAL SIGNS: Blood pressure 114/75, pulse 89, respirations 20, temperature 97.2 degrees Fahrenheit, O2 sat is 98% on room air. HEENT: Pupils equal, round and reacting to light and accommodation. Extraocular muscles intact. No icterus. No pallor. No oral thrush, no pharyngeal congestion. No nasal congestion. NECK: Supple. No JVD. LUNGS: Bilateral vesicular breath sounds. No wheezing. No rhonchi. CARDIOVASCULAR SYSTEM: S1, S2 present, regular. ABDOMEN: Soft, nontender. Bowel sounds present. No guarding. No rigidity. No rebound tenderness noted. CENTRAL NERVOUS SYSTEM: Alert, awake, oriented x1 to 2. No focal deficits noted. EXTREMITIES: No edema. Palpable peripheral pulses. MEDICATIONS: Include Neurontin 100 mg p.o. daily, Singulair 10 mg p.o. daily, Protonix 40 mg p.o. b.i.d., Januvia 100 p.o. daily and Flomax 0.4 mg daily. LABORATORY DATA: Labs from this morning: WBC 8.2, hemoglobin 12.6, hematocrit 36.6, platelets 238. Sodium 132, potassium 3.8, chloride 98, bicarb 27, BUN 14, creatinine 0.8, glucose 144, calcium 8.1, total bilirubin 1.0, AST 23, ALT 26, alkaline phosphatase 59, total protein 6.6 and albumin 3.5. ASSESSMENT AND PLAN: Elderly male with diabetes mellitus, schizophrenia, admitted for acute gastrointestinal bleeding, found to be having duodenal ulcer, status post esophagogastroduodenoscopy, status post hypokalemia. CT of the chest showing multiple pulmonary nodules, status post multiple blood transfusions. Patient's hemoglobin and hematocrit remained stable. Patient is cleared by Gastrointestinal but patient is awaiting for subacute rehab replacement. Discussed with case management and Hand Striper. Patient may be transferred to subacute rehab when bed available. Ana Song MD [facility] # [id number]
--- NOTE | 2017-04-30 10:54 | CP.PCM.PN ---
Subjective - Date & Time of Evaluation Date of Evaluation: 04/30/17 - Subjective Subjective: Progress note dictated #[id number] Objective - Vital Signs/Intake and Output Vital Signs (last 24 hours): Temp Pulse Resp BP Pulse Ox 97.4 F L 75 20 108/67 96 04/30/17 07:23 04/30/17 07:23 04/30/17 07:23 04/30/17 07:23 04/30/17 07:23 Intake and Output: 04/30/17 04/30/17 06:59 18:59 Intake Total 250 Output Total 300 Balance -50 - Medications Medications: Current Medications Gabapentin (Neurontin) 100 mg PO DAILY [facility] Last Admin: 04/29/17 09:44 Dose: 100 mg Montelukast Sodium (Singulair) 10 mg PO DAILY [facility] Last Admin: 04/29/17 09:45 Dose: 10 mg Pantoprazole Sodium (Protonix Ec Tab) 40 mg PO BID [facility] Last Admin: 04/29/17 17:56 Dose: 40 mg Sitagliptin Phosphate (Januvia) 100 mg PO DAILY [facility] Last Admin: 04/29/17 09:45 Dose: 100 mg Tamsulosin HCl (Flomax) 0.4 mg PO DAILY [facility] Last Admin: 04/29/17 09:44 Dose: 0.4 mg - Labs Labs: 04/29/17 08:27 04/29/17 08:27 PT 13.8 SECONDS (9.7-12.2) H 04/23/17 11:30 INR 1.2 04/23/17 11:30 APTT 23 SECONDS (21-34) 04/23/17 11:30
[2017-04-30] MEDS: Pantoprazole 40 mg EC Tab PO SCH ×2 (11:52→21:39)
--- NOTE | 2017-04-30 16:16 | CP.PCM.CON ---
History of Present Illness - History of Present Illness History of Present Illness: The patient is a 71 year old male with medical history of COPD, diabetes mellitus, schizophrenia, and BPH who was brought into the ED by his brother who noticed blood in the toilet at home after the patient went to the bathroom. The patient's family noted that over the past week the patient has been feeling fatigued and has been hypersomnolent. In the ED the patient was hypotensive. He received IV fluids, 3 units pRBCs, a PPI, was placed NPO, and GI was consulted. Upper endoscopy was done which revealed H. pylori gastritis, a duodenal ulcer, and a small hiatal hernia. Colonoscopy was deferred due to presence of melena. Bleeding eventually resolved, H&H remain stable, and the patient is now tolerating diet by mouth. Chest x-ray 04/23/2017 revealed no focal infiltrate or effusion, biapical pleural thickening with upper lobe scattered nodularity/ granulomatous changes. CT chest/abdomen/pelvis 04/23/2017 revealed prior granulomatous disease with multiple partially calcified nodules bilaterally consistent with granulomas, occasional small noncalcified nodules possibly noncalcified granulomas, emphysema, athersclerotic disease with mildly dilated ascending aorta, and small noncalcified nodules. Psychiatry recommended continuing home medications. The patient is currently awaiting placement at a subacute rehab facility. He was seen and examined today for evaluation of pulmonary nodules. Review of systems: General: denies fever, chills, weakness, fatigue Cardiovascular: denies chest pain, palpitations, peripheral edema Pulmonary: denies shortness of breath, dyspnea, cough, sputum production, hemoptysis Medical history: COPD, diabetes mellitus, schizophrenia, BPH, neuropathy ( questionable) Surgical history: unspecified foot surgery many years ago Family history: mother - breast cancer, father - from natural causes Allergies: no known allergies Medications: * Neurontin 100 mg po daily darlene * Singulair 10 mg po daily darlene * Protonix 40 mg po bid darlene * Januvia 200 mg po daily darlene * Flomax 0.4 mg po daily darlene Social history: He admits to smoking > 1 ppd for many years but states he smokes around 3 cigarettes daily presently. He denies illicit drug or alcohol use. The patient is single/unmarried and without children. He lives with his brother. Vital signs: Temperature: 97.4F Pulse: 75 bpm Respiratory rate: 20 brpm Blood pressure: 108/67 mm Hg Pulse oximetry: 96 % on RA Physical examination: General: no apparent distress, normocephalic, atraumatic Cardiovascular: RRR, +s1, +s2, no murmurs/rubs/gallops Pulmonary: CTA b/l, decreased breath sounds Microbiology: * Nasal cultures negative x2 * Blood cultures negative x2 * Urine culture negative Assessment & Plan: Chronic emphysema * Saturating well on room air; monitor oxygen saturation * VBG 04/23/2017: 7.38/58/33/21 * Continue home medications (Singuilar 10 mg po qd) Pulmonary nodules * Chest x-ray 04/23/2017: No focal infiltrate or effusion. Biaprical pleural thickening with upper lobe scattered nodularity/granulomatous changes. * CT chest/abdomen/pelvis 04/23/2017: There are bilateral paraseptal emphysematous changes with multiple blebs and bulla. There are additional centrilobular emphysematous changes in the upper lobes. There are panlobular emphysematous changes at the lung bases.There is nodular pleural scarring at the lung apices right greater than left. There are multiple partially calcified pulmonary nodules. There is a 13 x 14 mm calcified right middle lobe nodule. There is a 6 x 6 mm partially calcified right lower lobe nodule. There is a 12 x 18 mm partially calcified left lower lobe nodule. There is a 10 x 13 mm partially calcified left lower lobe nodule. There are additional small partially calcified and noncalcified nodules. There is no lobar or segmental consolidation. There are no effusion. * Patient is clear for discharge from pulmonary standpoint * Pulmonary nodules are likely due to granulomatous disease vs. neoplasm * Recommend outpatient workup of pulmonary nodules Past Patient History - Past Social History Smoking Status: Former Smoker - NEUROLOGICAL Other/Comment: schizophrenia - ENDOCRINE/METABOLIC Hx Diabetes Mellitus Type 2: Yes - MUSCULOSKELETAL/RHEUMATOLOGICAL Hx Falls: No (unable to obtain) - PSYCHIATRIC Hx Substance Use: No - SURGICAL HISTORY Other/Comment: unable to obtain in information from patient, poor historian - ANESTHESIA Hx Anesthesia: No Meds Home Medications: Home Medication List Medication Instructions Recorded Confirmed Type Pantoprazole [Protonix EC Tab] 40 mg PO BID ect 04/30/17 Rx Allergies/Adverse Reactions: Allergies Allergy/AdvReac Type Severity Reaction Status Date / Time No Known Allergies Allergy Unverified 04/23/17 11:07 - Medications Medications: Current Medications Gabapentin (Neurontin) 100 mg PO DAILY [facility] Last Admin: 04/30/17 11:52 Dose: 100 mg Montelukast Sodium (Singulair) 10 mg PO DAILY [facility] Last Admin: 04/30/17 11:52 Dose: 10 mg Pantoprazole Sodium (Protonix Ec Tab) 40 mg PO BID [facility] Last Admin: 04/30/17 11:52 Dose: 40 mg Sitagliptin Phosphate (Januvia) 100 mg PO DAILY [facility] Last Admin: 04/30/17 11:52 Dose: 100 mg Tamsulosin HCl (Flomax) 0.4 mg PO DAILY [facility] Last Admin: 04/30/17 11:52 Dose: 0.4 mg Results - Vital Signs Recent Vital Signs: Last Vital Signs Temp 97.5 F L 04/30/17 16:00 Pulse 86 04/30/17 16:00 Resp 20 04/30/17 16:00 BP 123/75 04/30/17 16:00 Pulse Ox 98 04/30/17 16:00 - Labs Result Diagrams: 04/29/17 08:27 04/29/17 08:27 Labs: Laboratory Results - last 24 hr 04/29/17 04/30/17 04/30/17 21:17 07:04 11:07 POC Glucose (mg/dL) 104 91 119 H
--- NOTE | 2017-04-30 23:18 | PN ---
DATE: 04/30/2017 SUBJECTIVE: The patient was seen and examined at bedside. The patient offers no new complaints. Feeling much better. Tolerating regular diet. PHYSICAL EXAMINATION: GENERAL: Elderly male, lying in bed, in no acute distress. VITAL SIGNS: Blood pressure 123/75, pulse 86, respirations 20, temperature 97.5 degrees Fahrenheit, O2 sat is 98% on room air. HEENT: Pupils equal, round and reacting to light and accommodation. Extraocular muscles intact. No icterus. No pallor. No oral thrush, no pharyngeal congestion. NECK: Supple. No JVD. No thyromegaly. CHEST: Moving equally bilaterally on respiration. LUNGS: Bilateral vesicular breath sounds. No wheezing. No rhonchi. CARDIOVASCULAR SYSTEM: S1, S2 present. Regular. ABDOMEN: Soft, nontender. Bowel sounds present. No guarding. No rigidity. No rebound tenderness noted. CENTRAL NERVOUS SYSTEM: Alert, awake, oriented x1. No focal deficits noted. EXTREMITIES: No edema. MEDICATIONS: Include Neurontin 100 mg p.o. daily, Singulair 10 mg p.o. daily, Protonix 40 mg p.o. b.i.d., Januvia 100 p.o. daily and Flomax 0.4 mg daily. LABORATORY DATA: Accu-Cheks from this morning 91, 104, 91, 119, and 109. ASSESSMENT AND PLAN: Elderly male with history of diabetes mellitus, schizophrenia, benign prostatic hypertrophy, status post upper gastrointestinal bleeding, status post acute blood loss anemia, status post multiple blood transfusions, pulmonary nodules, status post EGD consistent with duodenal ulcer with clean base. The patient is cleared by GI and Pulmonary. railroad emergency services manager made arrangements for transportation for discharging home. No transportation services showed up to sweet pickled fruit maker the patient as per floor nurse and placement secretary, and patient cannot be discharged as there was no transportation for the patient to be picked up. They will follow up with medical social consultant in a.m. or continue with current medication. Ana Song MD
[2017-05-01] MEDS: Pantoprazole 40 mg EC Tab PO SCH (10:08)
--- NOTE | 2017-05-01 11:12 | CP.PCM.PN ---
Subjective - Date & Time of Evaluation Date of Evaluation: 05/01/17 Time of Evaluation: 11:30 - Subjective Subjective: Discharge summary dictated #[id number] Objective - Vital Signs/Intake and Output Vital Signs (last 24 hours): Temp Pulse Resp BP Pulse Ox 98.7 F 82 20 110/63 98 05/01/17 07:55 05/01/17 07:55 05/01/17 07:55 05/01/17 07:55 05/01/17 07:55 Intake and Output: 05/01/17 05/01/17 06:59 18:59 Intake Total 350 Balance 350 - Medications Medications: Current Medications Gabapentin (Neurontin) 100 mg PO DAILY [facility] Last Admin: 05/01/17 10:08 Dose: 100 mg Montelukast Sodium (Singulair) 10 mg PO DAILY [facility] Last Admin: 05/01/17 10:08 Dose: 10 mg Pantoprazole Sodium (Protonix Ec Tab) 40 mg PO BID [facility] Last Admin: 05/01/17 10:08 Dose: 40 mg Sitagliptin Phosphate (Januvia) 100 mg PO DAILY [facility] Last Admin: 05/01/17 10:08 Dose: 100 mg Tamsulosin HCl (Flomax) 0.4 mg PO DAILY [facility] Last Admin: 05/01/17 10:08 Dose: 0.4 mg - Labs Labs: 04/29/17 08:27 04/29/17 08:27 PT 13.8 SECONDS (9.7-12.2) H 04/23/17 11:30 INR 1.2 04/23/17 11:30 APTT 23 SECONDS (21-34) 04/23/17 11:30
[2017-05-01 16:08] VITALS: BP 101/61; PULSE 71; TEMP 97.1; O2SAT 97
--- NOTE | 2017-05-02 15:24 | DS ---
DISCHARGE DIAGNOSES: Acute upper gastrointestinal bleeding, possibly from duodenal ulcer, status post esophagogastroduodenoscopy consistent with duodenal ulcer, acute blood-loss anemia from gastrointestinal bleeding, status post hypotension from acute blood loss and hypovolemia, history of schizophrenia, history of diabetes mellitus, history of benign prostatic hypertrophy, chronic obstructive pulmonary disease, multiple pulmonary nodules consistent with prior granulomatous disease. HISTORY OF PRESENT ILLNESS: Mr. Walters is a 71-year-old male with a past medical history of schizophrenia, diabetes mellitus, BPH, and COPD, who came into the ED brought by EMS as patient had bright red blood per rectum and has not been feeling well for the past few days prior to being admitted to the hospital. In the emergency room, the patient was found to be having low H and H with guaiac-positive, hypotensive, and the patient was admitted to the unit for further management. Today, the patient is feeling much better. Denied any headache or dizziness. Denied any chest pain, shortness of breath, or wheezing. Denied any nausea, vomiting, abdominal pain, diarrhea, or constipation. Denied any urinary complaints. Denied any leg pains or leg cramps. Denied any other neurologic symptoms. PHYSICAL EXAMINATION: GENERAL: On examination, an elderly male lying in bed, in no acute distress. VITAL SIGNS: Blood pressure 110/63, pulse 82, respirations 20, temperature 98.7 degrees Fahrenheit, O2 saturation is 98% on room air. HEENT: Pupils are equal, round, and reacting to light and accommodation. Extraocular muscles are intact. No icterus. No pallor. No oral thrush. No pharyngeal congestion. No nasal congestion. NECK: Supple. No JVD. No thyromegaly. CHEST: Moving equally bilaterally on respiration. LUNGS: Bilateral vesicular breath sounds. No wheezing. No rhonchi. CARDIOVASCULAR: S1 and S2 present. Regular. ABDOMEN: Soft, nontender. Bowel sounds are present. No guarding. No rigidity. No rebound tenderness noted. CENTRAL NERVOUS SYSTEM: Alert, awake, and oriented x1. No focal deficits noted. EXTREMITIES: No edema. Palpable peripheral pulses. LABORATORY DATA: From 04/29/2017, WBC 8.2, hemoglobin 12.6, hematocrit 36.6, and platelets 238. Sodium 132, potassium 3.8, chloride 98, bicarbonate 27, BUN 14, creatinine 0.8, glucose 92, calcium 8.1. LFTs within normal limits. EGD is consistent with duodenal ulcer. CT of the chest, abdomen, and pelvis is consistent with chronic granulomatous disease of the lungs, bilateral nonobstructing inguinal hernias. HOSPITAL COURSE: The patient was admitted to the hospital for GI bleeding. The patient received multiple units of PRBCs and IV fluids. The patient was persistently hypotensive. The patient was admitted to the unit, evaluated by tax representative. After the patient was stabilized, the patient underwent an EGD, which was consistent with duodenal ulcer. The patient was unable to undergo colonoscopy as the patient was unable to drink the GoLYTELY. After multiple transfusions and fluids, the patient's H and H remained stable. The patient tolerated the regular diet. The patient was restarted on his home medications for pulmonary nodules. The patient was evaluated by Pulmonary. No further workup recommended at this time. As the patient is otherwise hemodynamically stable, the patient is being discharged today. Advised the patient to follow up with PMD, Gastroenterology, and Pulmonary as outpatient. CONDITION UPON DISCHARGE: The patient is alert, awake, and oriented x1, and hemodynamically stable at the time of discharge. DISCHARGE DIET: Low-sodium, low-cholesterol, 1800-calorie ADA diet. ACTIVITY: As tolerated. DISCHARGE MEDICATIONS: Neurontin 100 mg daily, Singulair 10 mg daily, Zyprexa 20 mg daily, Protonix 40 mg daily, Januvia 100 mg daily, Flomax 0.4 mg daily. DISCHARGE INSTRUCTIONS: Follow up with PMD, follow up with GI, and follow up with Pulmonary. Ana Song MD
== END 2017-05-01 18:36 | disposition home or self-care (01) | DRG 377 ==
LOC: C.ER 10:47 → C.9E 16:04 → C.6T 23:52 → C.9I 04-24 10:53 → C.3T 04-27 11:18
PROVIDERS: ADMIT Internal Medicine; ATTEND Internal Medicine
PROC: 30233N1 Transfusion of Nonautologous Red Blood Cells into Peripheral Vein, Percutaneous Approach (ICD-10-PCS; 2017-04-25)
PROC: 0DB98ZX Excision of Duodenum, Via Natural or Artificial Opening Endoscopic, Diagnostic (ICD-10-PCS; principal; 2017-04-25 14:05)
PROC: 0DB68ZX Excision of Stomach, Via Natural or Artificial Opening Endoscopic, Diagnostic (ICD-10-PCS; 2017-04-25 14:05)
DX: K26.0 Acute duodenal ulcer with hemorrhage (principal); E43 Unspecified severe protein-calorie malnutrition; I95.9 Hypotension, unspecified; E11.40 Type 2 diabetes mellitus with diabetic neuropathy, unspecified; R64 Cachexia; J44.9 Chronic obstructive pulmonary disease, unspecified; F20.9 Schizophrenia, unspecified; D71 Functional disorders of polymorphonuclear neutrophils; D62 Acute posthemorrhagic anemia; N28.1 Cyst of kidney, acquired; E86.1 Hypovolemia; K29.70 Gastritis, unspecified, without bleeding; K40.20 Bilateral inguinal hernia, without obstruction or gangrene, not specified as recurrent; K44.9 Diaphragmatic hernia without obstruction or gangrene; N40.0 Benign prostatic hyperplasia without lower urinary tract symptoms; Z79.84 Long term (current) use of oral hypoglycemic drugs; Z80.3 Family history of malignant neoplasm of breast; B96.81 Helicobacter pylori [H. pylori] as the cause of diseases classified elsewhere; F10.129 Alcohol abuse with intoxication, unspecified; F17.210 Nicotine dependence, cigarettes, uncomplicated; K21.9 Gastro-esophageal reflux disease without esophagitis; E87.6 Hypokalemia